=== PATIENT | female | born 1940 | race Caucasian/White ===

== ENCOUNTER → 2016-10-21 | Outpatient (CLI) | payer OTHER ==
[~2016-10-21] MED LIST: ATOR10TA88 PO; CLB/200 PO; CMD5 PO; DOMPERIDONE PO; FSMD/70 PO; GABA-112 PO; GABA1CAP5 PO; LVNIS80 SQ; MULT-190 PO; TRAM-10 PO; WARF5TAB7 PO
--- NOTE | 2016-10-21 16:38 | MAMMOGRAPHY REPORT ---
BILATERAL DIGITAL SCREENING MAMMOGRAM WITH CAD: 10/21/2016 CLINICAL HISTORY: Routine screening. Patient has no complaints. TECHNIQUE: Bilateral CC, MLO, left XCCM, repeat right MLO and right XCCL views were obtained. Curre nt study was also evaluated with a Computer Aided Detection (CAD) system. COMPARISON: Comparison is made to exams dated: 08/13/2015 mammogram, 08/10/2013 mammogram, 08/09/2012 mammogram, 08/05/2010 mammogram, 08/01/2009 mammogram, and 08/11/2014 mammogram - [facility]. BREAST COMPOSITION: There are scattered areas of fibroglandular density in both breasts. FINDINGS: There are moderate benign vascular calcifications in both breasts. The parenchymal patte rn is similar to prior mammograms. No new suspicious mass, architectural distortion or cluster of mi crocalcifications is seen. IMPRESSION: ACR BI-RADS CATEGORY 2: BENIGN There is no mammographic evidence of malignancy. A 1 year screening mammogram is recommended. The p atient will receive written notification of the results. Approximately 10% of breast cancers are not detected with mammography. A negative mammographic repor t should not delay biopsy if a clinically suggestive mass is present. Cindy Coronado M.D. ay/:10/21/2016 16:27:09 Science Professor: Leni VERDUZCO(Dereck)(M), [facility] letter sent: Normal 1/2 BI-RADS Code: ACR BI-RADS Category 2: Benign
== END | disposition home or self-care (01) ==
LOC: C.MAMM 13:05
PROVIDERS: ATTEND Internal Medicine
DX: Z12.31 Encounter for screening mammogram for malignant neoplasm of breast (principal)

== ENCOUNTER → 2017-03-11 | Day surgery (SDC) | payer OTHER ==
[2017-02-26 10:38] VITALS: Ht 167.6 cm; Wt 95.5 kg
[~2017-03-11] VITALS: Ht 167.6 cm; Wt 95.5 kg
[~2017-03-11] MED LIST changes: +500ML BSS 0.3ML EPI 1:1000PF IRRIG ONE; +ACETAMINOPHEN 325 MG TAB PO PRN; +AMVISC PLUS 0.8ML SYRINGE INT OCU ONE; +ATROPINE SULFATE 0.1 MG/ML 5ML SYR IV PRN; +AcetaZOLAMIDE 250 MG TAB PO SCH; +BETAXOLOL HCL 0.25% OP SUSP PER DROP CHARGE OPL SCH; +BRIMONIDINE TART 0.2% OP SOLN PER DROP CHARGE ONE; +BSS FLUSH ONE; +ENDOCOAT 0.85ML SYRINGE INT OCU ONE; +EpINEphrine INJ 1MG/ML AMP 1 MG/ML AMP ONE; -GABA-112 PO; +LACTATED RINGER'S 1000ML 500 ML IV SCH; +LIDOCAINE 4% OP SOLN DROP CHARGE ONE; +LIDOCAINE 4% OP SOLN DROP CHARGE OPL SCH; +LIDOCAINE HCL 1% MPF 2 ML VIAL ONE; -LVNIS80 SQ; +MIDAZOLAM HCL 1 MG/ML 2ML VIAL ONE; +MIX: 4ML BSS 1ML EPI 1:1000 PF INSTIL ONE; +MOXIFLOXACIN OPH SOLN PER DROP CHARGE ONE; +OCUCOAT 1 ML SOLN IO ONE; +POVIDONE-IODINE OP SOLN 30 ML BTL ONE; +PROPARACAINE 0.5% OP SOLN PER DROP CHARGE OPL SCH; +TOBRAMYCIN/DEXAMETHASONE OPH OINT PER APPLN CHARGE ONE
--- NOTE | 2017-03-11 09:35 | History & Physical Bridge - SC ---
H&P Re-Evaluation Bridge Note: I have examined the patient, reviewed the History & Physical and in the interval since the performance of the History & Physical I have noted the following changes of clinical significance: No changes noted
[2017-03-11] MEDS: PHENYLEPHRINE HCL 2.5% OP SOLN PER DROP CHARGE OPL SCH ×2 (10:45→10:50)
[2017-03-11] MEDS: TROPICAMIDE 1% OP SOLN PER DROP CHARGE OPL SCH ×2 (10:46→10:51)
[2017-03-11] MEDS: CYCLOPENTOLATE HCL 1% OP SOLN PER DROP CHARGE OPL SCH ×2 (10:47→10:52)
[2017-03-11] MEDS: MOXIFLOXACIN OPH SOLN PER DROP CHARGE OPL SCH ×2 (10:48→10:58)
--- NOTE | 2017-03-11 11:25 | Discharge Instructions-SurgCtr ---
Discharge Instructions Date of Service Mar 11, 2017. Visit Reason for Visit: Left Cataract Discharge Discharge Diagnosis / Problem: lens implant left eye Discharge Goals Goal(s): Improve function Activity Recommendations Activity Limitations: resume your previous activity Lifting Limitations: no more than 10 pounds Exercise/Sports Limitations: gradually increase as tolerated May Resume Sexual Activity: when tolerated Shower/Bathe: tomorrow Driving or Machine Use: resume 1 day after discharge Anesthesia . Post Anesthesia Instructions: If you have had General Anesthesia or IV Sedation: * Do not drive today. * Resume driving when surgeon permits. * Do not make important decisions or sign legal documents today. * Call surgeon for: 1. Temperature elevations greater than 101 degrees F. 2. Uncontrollable pain. 3. Excessive bleeding. 4. Persistent nausea and vomiting. 5. Medication intolerance (nausea, vomiting or rash). * For nausea and vomiting use only clear liquids such as: tea, soda, bouillon until nausea subsides, then gradually increase diet as tolerated. * If you have any concerns or questions, call your surgeon's office. If physician is unavailable and it is an emergency, call 911 or go to the nearest emergency room. . Instructions / Follow-Up Instructions / Follow-Up ACTIVITY RECOMMENDATIONS: * Light activities. * Mild irritation and blurred vision are common for the first few days. * You may walk outside, read, watch television. * Redness around the white part of the eye is common. MEDICATIONS: Resume previous medications unless instructed otherwise by your surgeon. * Take white Diamox (Acetazolamide) tablet at 2 pm today. Start all eye drops at 2 pm today: * Eye drops (today and tomorrow): Prednisone - one drop in operative eye every 3 hours while awake Ofloxacin - one drop in operative eye every 3 hours while awake Ketorolac - one drop in operative eye every 3 hours while awake SPECIAL CARE INSTRUCTIONS: * Tape plastic shield over eye to sleep at night. Call your doctor at with any concerns or problems. FOLLOW UP VISIT: Follow-up with Dr Cerda at [place] office as scheduled. Diet Recommendations Home Diet: no limitations Procedures Procedures Performed: cataract extraction with lens implant Pending Studies Studies pending at discharge: no Medical Emergencies . Who to Call and When: Medical Emergencies: If at any time you feel your situation is an emergency, please call 911 immediately. . Non-Emergent Contact Non-Emergency issues call your: Service Associate Call Non-Emergent contact if: your pain is not controlled [phone] . . "Provider Documentation" section prepared by Getachew Cerda. .
--- NOTE | 2017-03-11 11:26 | [facility] Operative Report ---
Operative Report Date of Service Mar 11, 2017. Operative Report 1. PREOPERATIVE DIAGNOSIS: Senile nuclear cataract, left eye. 2. POSTOPERATIVE DIAGNOSIS: Senile nuclear cataract, left eye. 3. PROCEDURE: Phacoemulsification of left cataract with posterior chamber lens implant, type Bausch [employer] Lomb, model MI60L, power +1.00 diopters. ANESTHESIA: Local standby. SURGEON: Dr. Cerda. COMPLICATIONS: None. OPERATING TIME: 10 minutes. 4. OPERATION AND FINDINGS: DESCRIPTION OF PROCEDURE: The left pupil was dilated. The anesthetic was administered using a topical technique. The left eye was prepped and draped. A speculum was placed. A clear corneal incision was formed. The chamber was filled with Amvisc Plus and Endocoat. A paracentesis was placed. A capsulorrhexis was performed. The nucleus was hydrodissected. The lens was removed with phacoemulsification. Time was 2.50 seconds. The aspiration unit was used to remove the cortex. The capsule was filled with Amvisc Plus. The lens implant was folded and placed into the capsule. The incision was hydrated. The Amvisc was aspirated. The wound was secure. The chamber was deep. The pupil was round. Brimonidine, TobraDex ointment and Vigamox solution were placed. The speculum was removed. The patient was returned to the Recovery Room in stable condition. I attest to the content of the Intraoperative Record and any orders documented therein. Any exceptions are noted below. The scribe's documentation has been prepared in my presence, under my direction and personally reviewed by me in its entirety. I confirm that the note above accurately reflects all work, treatment, procedures, and medical decision making performed by me. I personally scribed for Getachew Cerda M.D. ([email or web address]) on 03/11/17 at 11:26. Electronically submitted by Ibeth Millard ([email or web address]).
[2017-03-11 11:27] VITALS: TEMP 36.3
[2017-03-11 11:46] VITALS: BP 165/67; PULSE 65; O2SAT 98
--- NOTE | 2017-03-11 11:48 | Anesthesia Progress Nt - [facility] ---
Anesthesia Post Op Note Date & Time Mar 11, 2017 at 11:48 Vital Signs Pain Intensity: 2.0 Vital Signs Past 12 Hours Date Time Temp Pulse Resp B/P (MAP) Pulse Ox O2 Delivery O2 Flow Rate FiO2 03/11/17 11:46 65 16 165/67 (99) 98 Room Air 03/11/17 11:27 36.3 66 16 153/63 (93) 96 Room Air 03/11/17 10:32 36.8 67 20 173/88 (116) 98 Room Air Notes Mental Status: alert / awake / arousable, participated in evaluation Pt Amnestic to Procedure: Yes Nausea / Vomiting: adequately controlled Pain: adequately controlled Airway Patency, RR, SpO2: stable & adequate BP & HR: stable & adequate Hydration State: stable & adequate Anesthetic Complications: no major complications apparent
== END | disposition home or self-care (01) ==
LOC: X.SURG 09:18
PROVIDERS: ATTEND Specialist
DX: H25.12 Age-related nuclear cataract, left eye (principal); Z86.718 Personal history of other venous thrombosis and embolism; Z86.711 Personal history of pulmonary embolism; Z79.01 Long term (current) use of anticoagulants

== ENCOUNTER → 2017-04-01 | Day surgery (SDC) | payer OTHER ==
[2017-03-19 09:03] VITALS: Ht 167.6 cm; Wt 95.5 kg
[~2017-04-01] VITALS: Ht 167.6 cm; Wt 95.5 kg
[~2017-04-01] MED LIST changes: -BETAXOLOL HCL 0.25% OP SUSP PER DROP CHARGE OPL SCH; +BETAXOLOL HCL 0.25% OP SUSP PER DROP CHARGE OPR SCH; -CMD5 PO; +EpHEDrine SULFATE INJ 50 MG/ML AMP IV PRN; -LIDOCAINE 4% OP SOLN DROP CHARGE OPL SCH; +LIDOCAINE 4% OP SOLN DROP CHARGE OPR SCH; -PROPARACAINE 0.5% OP SOLN PER DROP CHARGE OPL SCH; +PROPARACAINE 0.5% OP SOLN PER DROP CHARGE OPR SCH
[2017-04-01] MEDS: PHENYLEPHRINE HCL 2.5% OP SOLN PER DROP CHARGE OPR SCH ×2 (07:41→07:46)
[2017-04-01] MEDS: TROPICAMIDE 1% OP SOLN PER DROP CHARGE OPR SCH ×2 (07:42→07:47)
[2017-04-01] MEDS: CYCLOPENTOLATE HCL 1% OP SOLN PER DROP CHARGE OPR SCH ×2 (07:43→07:48)
[2017-04-01] MEDS: MOXIFLOXACIN OPH SOLN PER DROP CHARGE OPR SCH ×2 (07:44→07:52)
--- NOTE | 2017-04-01 08:16 | Discharge Instructions-SurgCtr ---
Discharge Instructions Date of Service Apr 01, 2017. Visit Reason for Visit: Cataract Right Eye Discharge Discharge Diagnosis / Problem: lens implant right eye Discharge Goals Goal(s): Improve function Activity Recommendations Activity Limitations: resume your previous activity Lifting Limitations: no more than 10 pounds Exercise/Sports Limitations: gradually increase as tolerated May Resume Sexual Activity: when tolerated Shower/Bathe: tomorrow Driving or Machine Use: resume 1 day after discharge Anesthesia . Post Anesthesia Instructions: If you have had General Anesthesia or IV Sedation: * Do not drive today. * Resume driving when surgeon permits. * Do not make important decisions or sign legal documents today. * Call surgeon for: 1. Temperature elevations greater than 101 degrees F. 2. Uncontrollable pain. 3. Excessive bleeding. 4. Persistent nausea and vomiting. 5. Medication intolerance (nausea, vomiting or rash). * For nausea and vomiting use only clear liquids such as: tea, soda, bouillon until nausea subsides, then gradually increase diet as tolerated. * If you have any concerns or questions, call your surgeon's office. If physician is unavailable and it is an emergency, call 911 or go to the nearest emergency room. . Instructions / Follow-Up Instructions / Follow-Up ACTIVITY RECOMMENDATIONS: * Light activities. * Mild irritation and blurred vision are common for the first few days. * You may walk outside, read, watch television. * Redness around the white part of the eye is common. MEDICATIONS: Resume previous medications unless instructed otherwise by your surgeon. * Take white Diamox (Acetazolamide) tablet at 1 pm today. Start all eye drops at 1 pm today: * Eye drops (today and tomorrow): Prednisone - one drop in operative eye every 3 hours while awake Ofloxacin - one drop in operative eye every 3 hours while awake SPECIAL CARE INSTRUCTIONS: * Tape plastic shield over eye to sleep at night. Call your doctor at with any concerns or problems. FOLLOW UP VISIT: Follow-up with Dr Cerda at [place] office as scheduled. Diet Recommendations Home Diet: no limitations Procedures Procedures Performed: cataract extraction with lens implant Pending Studies Studies pending at discharge: no Medical Emergencies . Who to Call and When: Medical Emergencies: If at any time you feel your situation is an emergency, please call 911 immediately. . Non-Emergent Contact Non-Emergency issues call your: Pulmonary Care Nurse Call Non-Emergent contact if: your pain is not controlled [phone] . . "Provider Documentation" section prepared by Getachew Cerda. .
--- NOTE | 2017-04-01 08:17 | [facility] Operative Report ---
Operative Report Date of Service Apr 01, 2017. Operative Report 1. PREOPERATIVE DIAGNOSIS: Senile nuclear cataract, right eye. 2. POSTOPERATIVE DIAGNOSIS: Senile nuclear cataract, right eye. 3. PROCEDURE: Phacoemulsification of right cataract with posterior chamber lens implant, type Bausch [employer] Lomb, model MI60L, power +2.0 diopters. ANESTHESIA: Local standby. SURGEON: Dr. Cerda. COMPLICATIONS: None. OPERATING TIME: 10 minutes. 4. OPERATION AND FINDINGS: DESCRIPTION OF PROCEDURE: The right pupil was dilated. The anesthetic was administered using a topical technique. The right eye was prepped and draped. A speculum was placed. A clear corneal incision was formed. The chamber was filled with Amvisc Plus and Endocoat. Epinephrine solution was used. A paracentesis was placed. A capsulorrhexis was performed. The nucleus was hydrodissected. The lens was removed with phacoemulsification. Time was 5.38 seconds. The aspiration unit was used to remove the cortex. The capsule was filled with Amvisc Plus. The lens implant was folded and placed into the capsule. The incision was hydrated. The Amvisc was aspirated. The wound was secure. The chamber was deep. The pupil was round. Brimonidine, TobraDex ointment and Vigamox solution were placed. The speculum was removed. The patient was returned to the Recovery Room in stable condition. I attest to the content of the Intraoperative Record and any orders documented therein. Any exceptions are noted below. The scribe's documentation has been prepared in my presence, under my direction and personally reviewed by me in its entirety. I confirm that the note above accurately reflects all work, treatment, procedures, and medical decision making performed by me. I personally scribed for Getachew Cerda M.D. ([email or web address]) on 04/01/17 at 08:17. Electronically submitted by Ibeth Millard ([email or web address]).
[2017-04-01 08:19] VITALS: TEMP 36.8
[2017-04-01 08:47] VITALS: BP 134/65; PULSE 68; O2SAT 94
--- NOTE | 2017-04-01 09:02 | Anesthesia Progress Nt - [facility] ---
Anesthesia Post Op Note Date & Time Apr 01, 2017 at 09:02 Vital Signs Pain Intensity: 4 Vital Signs Past 12 Hours Date Time Temp Pulse Resp B/P (MAP) Pulse Ox O2 Delivery O2 Flow Rate FiO2 04/01/17 08:47 68 18 134/65 (88) 94 Room Air 04/01/17 08:19 36.8 71 16 136/80 (98) 95 Room Air 04/01/17 07:35 36.5 66 16 134/79 (97) 95 Room Air Notes Mental Status: alert / awake / arousable, participated in evaluation Pt Amnestic to Procedure: Yes Nausea / Vomiting: adequately controlled Pain: adequately controlled Airway Patency, RR, SpO2: stable & adequate BP & HR: stable & adequate Hydration State: stable & adequate Anesthetic Complications: no major complications apparent
== END | disposition home or self-care (01) ==
LOC: X.SURG 06:55
PROVIDERS: ATTEND Specialist
DX: H25.11 Age-related nuclear cataract, right eye (principal); Z79.01 Long term (current) use of anticoagulants

== ENCOUNTER → 2017-06-30 | Outpatient (CLI) | payer OTHER ==
[~2017-06-30] MED LIST changes: -500ML BSS 0.3ML EPI 1:1000PF IRRIG ONE; -ACETAMINOPHEN 325 MG TAB PO PRN; -AMVISC PLUS 0.8ML SYRINGE INT OCU ONE; +ATOR10TA82 PO; -ATOR10TA88 PO; -ATROPINE SULFATE 0.1 MG/ML 5ML SYR IV PRN; -AcetaZOLAMIDE 250 MG TAB PO SCH; -BETAXOLOL HCL 0.25% OP SUSP PER DROP CHARGE OPR SCH; -BRIMONIDINE TART 0.2% OP SOLN PER DROP CHARGE ONE; -BSS FLUSH ONE; -CLB/200 PO; -ENDOCOAT 0.85ML SYRINGE INT OCU ONE; -EpHEDrine SULFATE INJ 50 MG/ML AMP IV PRN; -EpINEphrine INJ 1MG/ML AMP 1 MG/ML AMP ONE; +GABA-1220 PO; -GABA1CAP5 PO; -LACTATED RINGER'S 1000ML 500 ML IV SCH; -LIDOCAINE 4% OP SOLN DROP CHARGE ONE; -LIDOCAINE 4% OP SOLN DROP CHARGE OPR SCH; -LIDOCAINE HCL 1% MPF 2 ML VIAL ONE; -MIDAZOLAM HCL 1 MG/ML 2ML VIAL ONE; -MIX: 4ML BSS 1ML EPI 1:1000 PF INSTIL ONE; -MOXIFLOXACIN OPH SOLN PER DROP CHARGE ONE; -OCUCOAT 1 ML SOLN IO ONE; -POVIDONE-IODINE OP SOLN 30 ML BTL ONE; -PROPARACAINE 0.5% OP SOLN PER DROP CHARGE OPR SCH; +RXC5 PO; -TOBRAMYCIN/DEXAMETHASONE OPH OINT PER APPLN CHARGE ONE
[2017-06-30 16:39] LABS: INR 2.2 (0.9-1.1)
--- NOTE | 2017-07-02 12:53 | CODING QUERY NO DIAGNOSIS ---
: 1940 TREATMENT RENDERED WITHOUT A DIAGNOSIS To promote full compliance with coding requirements relating to patient care, physician participation is requested in all cases of x ray control equipment repairer uncertainty. Please assist us with providing a diagnosis/symptom for the test(s) below: A diagnosis/symptom was not documented on your Order. A valid diagnosis/symptom is required to bill all insurances. Please remember that we are unable to code a diagnosis of rule out, probable, possible, questionable, or suspected. Tests that require a diagnosis for DOS 06/30/2017: * PROTHROMBIN TIME PROFILE DIAGNOSIS: Provider Signature: Date: Thank you Marjorie Clark [employer] Once completed, please kindly fax back to [phone] For questions please call [phone]
--- NOTE | 2017-07-16 08:01 | CODING QUERY NO DIAGNOSIS ---
TREATMENT RENDERED WITHOUT A DIAGNOSIS To promote full compliance with coding requirements relating to patient care, physician participation is requested in all cases of psychologist experimental uncertainty. Please assist us with providing a copy of the original, signed physician order for the following: DOS: 06/30/17 PROTHROMBIN TIME PROFILE Thank you Marjorie Clark [facility] Information Management Once completed, please kindly fax back to [phone] For questions please call [phone]
== END | disposition home or self-care (01) ==
LOC: C.LABSPEC 16:26
PROVIDERS: ATTEND Internal Medicine
DX: I82.409 Acute embolism and thrombosis of unspecified deep veins of unspecified lower extremity (principal)

== ENCOUNTER → 2017-11-27 | Outpatient (CLI) | payer OTHER ==
--- NOTE | 2017-11-30 14:34 | MAMMOGRAPHY REPORT ---
BILATERAL DIGITAL SCREENING MAMMOGRAM TOMOSYNTHESIS WITH CAD: 11/27/2017 CLINICAL HISTORY: Routine screening. Patient has no complaints. TECHNIQUE: Breast tomosynthesis in addition to standard 2D mammography was performed. Current study was also evaluated with a Computer Aided Detection (CAD) system. COMPARISON: Comparison is made to exams dated: 10/21/2016 mammogram, 08/13/2015 mammogram, 08/11/2014 m ammogram, 08/10/2013 mammogram, 08/09/2012 mammogram, and 08/06/2011 mammogram - [facility]. BREAST COMPOSITION: There are scattered areas of fibroglandular density in both breasts. FINDINGS: No suspicious masses, calcifications, or areas of architectural distortion are noted in ei ther breast. There has been no significant interval change compared to prior exams. Benign vascular calcifications are again noted bilaterally. IMPRESSION: ACR BI-RADS CATEGORY 2: BENIGN There is no mammographic evidence of malignancy. A 1 year screening mammogram is recommended. The pa tient will receive written notification of the results. Approximately 10% of breast cancers are not detected with mammography. A negative mammographic report should not delay biopsy if a clinically suggestive mass is present. Courtney Alston M.D. /:11/27/2017 14:43:16 Office Clin Asst: Summer VERDUZCO(Dereck)(Jed)(NISHA), [facility] letter sent: Normal 1/2 BI-RADS Code: ACR BI-RADS Category 2: Benign
== END | disposition home or self-care (01) ==
LOC: C.MAMM 13:39
PROVIDERS: ATTEND Internal Medicine
DX: Z12.31 Encounter for screening mammogram for malignant neoplasm of breast (principal)

== ENCOUNTER 2023-01-06 13:51 | Inpatient (IN) ==
--- NOTE | 2023-01-06 14:10 | Emergency Department Note ---
Impression & Plan Generalized weakness, Acute alteration in mental status, Compression fx, lumbar spine, Compression fx, thoracic spine, Urinary tract infection ED Provider Note NAME: TIMI CHAVIS AGE: 82 SEX: F : 1940 ARRIVES VIA: Ambulance INFORMANT: Patient, EMS, [facility] documentation, the patient's significant other ED PROVIDER(S): Getachew Sheriff DO CHIEF COMPLAINT: Altered mental status HPI: The patient is an 82-year-old female who presented to the emergency department by ambulance for an evaluation of altered mental status. The patient had been visited by her significant other today. She was found to still be in bed. The patient was visited by her significant other who thought this was not like her. There is no history of trauma. The patient appeared to be more confused than usual. There is no reported fever. There is no reported vomiting. The patient was not evaluated by the provider at the facility prior to coming to the emergency department. The patient apparently has a history of urinary tract infection in the past. Reportedly the patient has been compliant with the outpatient medications which include a blood thinner. ROS: See above HPI for pertinent positives & negatives. A total of 10 systems reviewed and were otherwise negative. PAST MEDICAL HISTORY: See Below PAST SURGICAL HISTORY: See Below FAMILY HISTORY: See Below SOCIAL HISTORY: See Below HOME MEDICATIONS: See Below ALLERGIES: See Below VITALS: See Below PHYSICAL EXAMINATION: GENERAL: The patient is awake to verbal commands. She answers slowly and appears to be confused. EYES: The conjunctivae are clear. The pupils are round and reactive. EARS, NOSE, MOUTH AND THROAT: The nose is without any evidence of any deformity. Mucous membranes are dry. NECK: The neck is nontender and supple. RESPIRATORY: Normal respiratory effort is noted there is no evidence of wheezing rhonchi or rales CARDIOVASCULAR: Regular rate and rhythm noted there no murmurs rubs or gallops normal S1 normal S2. GASTROINTESTINAL: The abdomen is distended. There is no tenderness guarding rigidity. MUSCULOSKELETAL/EXTREMITIES: There is no evidence of gross deformity full range of motion is noted in the hips and shoulders. SKIN: Skin is warm and dry. Pedal edema was noted bilaterally NEUROLOGIC: Patient is awake to verbal commands. She has symmetric strength but is diminished. She appears to be oriented to person and recognizes her spouse otherwise she is not oriented to place or time. MEDICAL DECISION MAKING: The patient is an 82-year-old female who presented to the emergency department for an evaluation of altered mental status. She presented with her significant other. The patient has a history of similar concerns in the past. She has had some falls recently. She was treated with IV fluids as well as IV antibiotics for presumed urinary tract infection noted on urinalysis. I discussed patient's laboratory and radiographic studies with her and her significant other. I discussed her condition with the on-call [facility] group. They have agreed to evaluate the patient in the emergency department for further management and disposition. Triage Nursing notes reviewed. Prior medical records reviewed Vital Signs: reviewed and remarkable for elevated blood pressure. Differential diagnosis: Infection, hypoglycemia, electrolyte abnormalities, overdose, toxicologic, cardiac sources, intracerebral event, neurologic, trauma, as well as other pathologies. ER treatment provided: See below Diagnostics interpreted by me: ECG: EKG was obtained in the emergency department. My interpretation is sinus rhythm at 68 bpm. First-degree AV block was noted. Poor R wave progression was noted. There is no acute ST segment elevations noted. This was compared to a tracing from March 30, 2022. No changes were noted. Cardiac Monitoring: An order was placed for continuous cardiac monitoring. The monitor shows a rate of 74 bpm with sinus rhythm. Laboratory studies: As stated above and show below. Imaging studies: See below. Radiographic imaging was reviewed by myself Consultation(s): I discussed this case with Aixa who is on-call for the [facility]. Past Med/Surg History Medical History (Updated 01/06/23 @ 16:36 by Getachew Sheriff DO) DVT (deep venous thrombosis) Gastroparesis HLD (hyperlipidemia) Left knee pain Lumbar facet joint syndrome Macular degeneration Osteoarthritis Osteoporosis Peripheral neuropathy Pulmonary embolism Right knee pain Surgical History H/O sinus surgery History of appendectomy History of cataract surgery S/P lumbar fusion Social History Smoking Status: Never smoker Hx Alcohol Use: Yes Alcohol type: wine Hx Substance Use: No marital status: Current Living Situation: Spouse current occupational status: retired Feels Safe at Home: Yes Allergies Allergies Allergy/AdvReac Type Severity Reaction Status Date / Time Penicillins Allergy Intermediate hives Verified 01/06/23 16:21 pollen extracts Allergy Intermediate sinus Verified 01/06/23 16:21 issues Home Meds Home Medications Medication Instructions Recorded Confirmed atorvastatin 10 mg tablet (Lipitor) 10 mg PO HS 03/11/19 01/06/23 acetaminophen 325 mg tablet 975 mg PO TID 3 GRAMS/24 HOURS 03/30/22 01/06/23 (Tylenol) amlodipine 5 mg tablet 5 mg PO QAM 03/30/22 01/06/23 cholecalciferol (vitamin D3) 25 25 mcg PO QAM 03/30/22 01/06/23 mcg (1,000 unit) capsule (Vitamin D3) diclofenac sodium 1 % topical gel 4 g topical Q6 PRN LEFT HIP PAIN 03/30/22 01/06/23 escitalopram oxalate 20 mg tablet 20 mg PO QAM 03/30/22 01/06/23 gabapentin 300 mg capsule 300 mg PO TID 03/30/22 01/06/23 alendronate 70 mg tablet (Fosamax) 70 mg PO WK 01/06/23 01/06/23 carboxymethylcellulose sodium 0.5 1 drp ophthalmic (eye) .EVERY 24 01/06/23 01/06/23 % eye drops (Refresh Tears) HOURS PRN Dry Eyes diclofenac sodium 1 % topical gel 4 g topical Q6 PRN spine pain 01/06/23 01/06/23 vit C 250 mg-vit E 90 mg-zinc 40 1 tab PO AMHS 01/06/23 01/06/23 mg-copper 1 [id number] capsule (PreserVision AREDS-2) warfarin 2.5 mg tablet 2.5 mg PO 3XWK 01/06/23 01/06/23 warfarin 5 mg tablet 5 mg PO 2XD 01/06/23 01/06/23 Results & Data (ED) Vital Signs Vital Signs - 24 hr 01/06/23 14:00 01/06/23 14:09 01/06/23 14:13 Temperature 36.9 C Temperature Source Oral Pulse Rate 74 74 Respiratory Rate 14 Blood Pressure 148/68 H Blood Pressure Mean 94 Blood Pressure Position Lying Pulse Oximetry 96 96 Oxygen Delivery Method Nasal Cannula Nasal Cannula Oxygen Flow Rate 4 4 Sepsis Recent Fever Within 48 Hours No Sepsis New/Unexplained Change in Mental Status Yes Sepsis Action Taken by Nursing No Action Required Home Medications Current Medication List: was personally reviewed by me Laboratory Data Attestation: I reviewed the patient's lab results. 01/06/23 14:20 01/06/23 14:20 Lab Results 01/06/23 01/06/23 01/06/23 Range/Units 14:20 14:20 14:20 WBC 5.98 (4.8-10.8) K/ul RBC 3.47 L (4.20-5.40) M/uL Hgb 11.2 L (12.0-16.0) g/dl Hct 32.6 L (37.0-47.0) % MCV 93.9 (80.0-100.0) fL MCH 32.3 (25.0-34.0) pg MCHC 34.4 (32.0-36.0) g/dL RDW Std Deviation 49.5 H (36.4-46.3) fL RDW Coeff of Joselito 14.4 (11.5-14.5) % Plt Count 190 (130-400) K/uL MPV 10.2 (9.4-12.4) fL Immature Gran % (Auto) 0.3 % Neut % (Auto) 66.4 % Lymph % (Auto) 20.1 % Morris % (Auto) 9.0 % Eos % (Auto) 3.7 % Baso % (Auto) 0.5 % Neut # (Auto) 3.97 (1.40-6.50) K/uL Lymph # (Auto) 1.20 (1.2-3.4) K/uL Morris # (Auto) 0.54 (0.11-0.59) K/uL Eos # (Auto) 0.22 (0-0.50) K/uL Baso # (Auto) 0.03 (0-0.2) K/uL Immature Gran # (Auto) 0.02 (0.01-0.20) K/uL PT 13.5 H (9.0-12.0) Seconds INR 1.2 H (0.9-1.1) APTT 28.5 (21.0-31.0) Seconds PTT Ratio 1.0 Sodium 140 (136-145) mmol/L Potassium 3.9 (3.5-5.1) mmol/L Chloride 110 H (98-107) mmol/L Carbon Dioxide 24 (21-32) mmol/L Anion Gap 6 (3-11) BUN 12 (6-23) mg/dl Creatinine 0.49 L (0.6-1.2) mg/dl Est Cr Clr Drug Dosing 104.4 ml/min Est GFR ( Amer) 104.4 ml/min Est GFR (Non-Af Amer) 90.1 ml/min BUN/Creatinine Ratio 24.5 H (10-20) Glucose 120 H (70-99(Fasting)) mg/dl Calcium 8.6 (8.6-10.3) mg/dl Magnesium 1.9 (1.7-2.4) mg/dl Total Bilirubin 0.6 (0.2-1.0) mg/dl AST 16 (13-39) U/L ALT 10 (7-52) U/L Alkaline Phosphatase 83 (34-104) U/L Total Creatine Kinase 172 (26-192) U/L Troponin I High Sens 5.9 (0-14) pg/ml Total Protein 6.4 (6.0-8.3) gm/dl Albumin 3.5 (3.4-5.0) gm/dl Globulin 2.9 (2.5-4.0) gm/dl Albumin/Globulin Ratio 1.2 (0.9-2) TSH (0.300-4.500) uIu/ml Urine Color Urine Appearance (Clear) Urine pH (4.5-7.5) Ur Specific Equality (1.000-1.030) Urine Protein (Negative) Urine Glucose (UA) (Negative) Urine Ketones (Negative) Urine Blood (Negative) Urine Nitrite (Negative) Urine Bilirubin (Negative) Urine Urobilinogen (Negative) Ur Leukocyte Esterase (Negative) Urine WBC (Auto) (0-5) /hpf Urine RBC (Auto) (0-4) /hpf U Hyaline Cast (Auto) (0-5) /lpf U Epithel Cells (Auto) (0-5) /lpf Urine Bacteria (Auto) (Negative) Urine Yeast SARS-CoV-2, RNA, NAAT (NEGATIVE) 01/06/23 01/06/23 01/06/23 Range/Units 14:20 14:30 15:40 WBC (4.8-10.8) K/ul RBC (4.20-5.40) M/uL Hgb (12.0-16.0) g/dl Hct (37.0-47.0) % MCV (80.0-100.0) fL MCH (25.0-34.0) pg MCHC (32.0-36.0) g/dL RDW Std Deviation (36.4-46.3) fL RDW Coeff of Joselito (11.5-14.5) % Plt Count (130-400) K/uL MPV (9.4-12.4) fL Immature Gran % (Auto) % Neut % (Auto) % Lymph % (Auto) % Morris % (Auto) % Eos % (Auto) % Baso % (Auto) % Neut # (Auto) (1.40-6.50) K/uL Lymph # (Auto) (1.2-3.4) K/uL Morris # (Auto) (0.11-0.59) K/uL Eos # (Auto) (0-0.50) K/uL Baso # (Auto) (0-0.2) K/uL Immature Gran # (Auto) (0.01-0.20) K/uL PT (9.0-12.0) Seconds INR (0.9-1.1) APTT (21.0-31.0) Seconds PTT Ratio Sodium (136-145) mmol/L Potassium (3.5-5.1) mmol/L Chloride (98-107) mmol/L Carbon Dioxide (21-32) mmol/L Anion Gap (3-11) BUN (6-23) mg/dl Creatinine (0.6-1.2) mg/dl Est Cr Clr Drug Dosing ml/min Est GFR ( Amer) ml/min Est GFR (Non-Af Amer) ml/min BUN/Creatinine Ratio (10-20) Glucose (70-99(Fasting)) mg/dl Calcium (8.6-10.3) mg/dl Magnesium (1.7-2.4) mg/dl Total Bilirubin (0.2-1.0) mg/dl AST (13-39) U/L ALT (7-52) U/L Alkaline Phosphatase (34-104) U/L Total Creatine Kinase (26-192) U/L Troponin I High Sens (0-14) pg/ml Total Protein (6.0-8.3) gm/dl Albumin (3.4-5.0) gm/dl Globulin (2.5-4.0) gm/dl Albumin/Globulin Ratio (0.9-2) TSH 1.927 (0.300-4.500) uIu/ml Urine Color Yellow Urine Appearance Cloudy A (Clear) Urine pH 6.5 (4.5-7.5) Ur Specific Equality 1.018 (1.000-1.030) Urine Protein Negative (Negative) Urine Glucose (UA) Negative (Negative) Urine Ketones Trace H (Negative) Urine Blood Negative (Negative) Urine Nitrite Positive A (Negative) Urine Bilirubin Negative (Negative) Urine Urobilinogen Negative (Negative) Ur Leukocyte Esterase 2+ H (Negative) Urine WBC (Auto) 1-5 (0-5) /hpf Urine RBC (Auto) 0-4 (0-4) /hpf U Hyaline Cast (Auto) 1-5 (0-5) /lpf U Epithel Cells (Auto) 20-30 H (0-5) /lpf Urine Bacteria (Auto) 4+ H (Negative) Urine Yeast Not Reportable SARS-CoV-2, RNA, NAAT NEGATIVE (NEGATIVE) Administered Medications Discontinued Medications Sodium Chloride (Nss) 500 mls @ 999 mls/hr IV .Q31M ARASELI Stop: 01/06/23 14:45 Last Infusion: 01/06/23 15:45 Dose: 0 mls/hr Documented By: Admin: 01/06/23 15:09 Dose: 999 mls/hr Documented By: REINA Imaging Data Attestation: I personally reviewed and interpreted this imaging study as follows: My Impression: CT of the head was obtained in the emergency department. My interpretation is no intracranial hemorrhage or mass, final report below. 1 view chest x-ray was obtained in the emergency department. My interpretation is no free air or definite infiltrate, final report below. Radiologist's Impression: Abdomen/Pelvis CT 01/06/23 14:03 CT OF THE ABDOMEN AND PELVIS WITHOUT CONTRAST CLINICAL HISTORY: Fall. Abdominal distention. COMPARISON STUDY: Pelvis radiograph March 11, 2019. TECHNIQUE: Axial images of the abdomen and pelvis were obtained without IV contrast. Images were reviewed in the axial, sagittal, and coronal planes. Automated exposure control was utilized for the study. A dose lowering technique was utilized adhering to the principles of ALARA. FINDINGS: Subpleural opacities within the lower lungs favor atelectasis. No hemoperitoneum or pneumoperitoneum is present. There is a small hiatal hernia. Evaluation of the solid abdominal viscera is suboptimal on this unenhanced exam but there is no evidence for traumatic injury to the liver, spleen, adrenal glands, kidneys or pancreas. A water attenuation 8.4 cm left renal lesion favors a cyst. Low-attenuation lesion within the lower pole of the right kidney also favors a cyst. There is a 5 mm calcification within the inferior left renal sinus. There are no ureteral calculi. There are hypodense foci within the renal sinuses. These probably reflect parapelvic cysts within correlating with MRI of the lumbar spine of May 08, 2015. There is no evidence for a bowel obstruction. Colonic diverticulosis is present. No evidence for acute diverticulitis. No acute proximal femoral fracture is noted. Note is made of an acute nondisplaced fracture through the left inferior aspect of the L5 vertebral body shown on axial image 238 of 389. This is new since the lumbar spine CT March 30, 2022. This extends to adjacent osteophytes. Postoperative findings within the lumbar spine are present. No additional acute fractures are present. A moderate T8 compression fracture is likely subacute to chronic. Mild T9 and T10 compression fractures appear chronic. Mild stranding within the right buttock is noted. Cholelithiasis. No evidence for acute cholecystitis. IMPRESSION: 1. No hemoperitoneum or pneumoperitoneum. No evidence for traumatic injury to the solid abdominal viscera on unenhanced exam. 2. Acute nondisplaced fracture through the left inferior aspect of the L5 vertebral body. No additional acute fractures. 3. Moderate T8 compression fracture, likely subacute. Chronic T9 and T10 compression fractures. 4. Suspected small right buttock contusion. 5. Cholelithiasis. No evidence for acute cholecystitis. 6. Colonic diverticulosis. No evidence for acute diverticulitis. ACT 112: Negative or not required by law. Electronically signed by: Aba Oliveira M.D. 01/06/2023 3:[address] 01/06/23 14:03 CT cervical spine wo con CLINICAL HISTORY: fall TECHNIQUE: Multidetector row helical CT of the cervical spine was performed without administration of intravenous contrast. Coronal and sagittal reformati ons were obtained. Automated dose lowering techniques and/or adjustment according to patient size were utilized for this exam. Comparison: Comparison is made to CT cervical spine 03/30/2022 FINDINGS: No acute fractures or subluxations are identified. Degenerative changes are seen in the visualized spine. The alignment is normal. Biapical scarring is seen. IMPRESSION: Degenerative changes without evidence of acute bony injury. ACT 112: Negative or not required by law. Electronically signed by: Josesito Sierra M.D. 01/06/2023 3:07 PM Chest X-Ray 01/06/23 14:03 XR chest 1V portable CLINICAL HISTORY: weakness TECHNIQUE: Single frontal radiograph of the chest was obtained. Comparison: Comparison is made to chest radiograph 03/11/2019 FINDINGS: No lines and tubes are seen. The cardiomediastinal silhouette is stable. The lungs are clear. No evidence of pleural effusion or pneumothorax. IMPRESSION: No acute chest disease. ACT 112: Negative or not required by law. Electronically signed by: Josesito Sierra M.D. 01/06/2023 3:[address] 01/06/23 14:03 CT head/brain wo con CLINICAL HISTORY: 82 years-old Female with ams. Acute head injury status post fall TECHNIQUE: Multiple axial CT images of the head were obtained without contrast. A dose lowering technique was utilized adhering to the principles of ALARA. CT DOSE: 2579.11 mGy.cm COMPARISON: 03/30/2022. FINDINGS: No acute intracranial hemorrhage, midline shift, intracranial mass, acute territorial ischemia or abnormal extra-axial collection. Involutional changes with chronic microvascular ischemic disease. Unchanged ventriculomegaly. The calvarium is intact. Mastoid air cells are clear. Severe near complete opacification of the left sphenoid sinus. Prior partial ethmoidectomy. Elongation of the bilateral globes. Prior bilateral lens repair. IMPRESSION: 1. No acute intracranial abnormality. 2. Unchanged ventricular dilation which may be an ex vacuo basis. Normal pressure hydrocephalus could appear similarly. ACT 112: Negative or not required by law. The above report was generated using voice recognition software. It may contain grammatical, syntax or spelling errors. Electronically signed by: Maxim Sales M.D. 01/06/2023 2:59 PM Discharge Plan Visit Data Chief Complaint: Altered Mental Status ED Provider: Getachew Sheriff Discharge Problem: Generalized weakness, Acute alteration in mental status, Compression fx, lumbar spine, Compression fx, thoracic spine, Urinary tract infection Patient Disposition: Being Evaluated by Hospitalist Forms Stand Alone Forms: [facility] Prescriptions Prescriptions: No Action atorvastatin [Lipitor] 10 mg tablet 10 mg PO HS warfarin 2.5 mg tablet 2.5 mg PO 3XWK Rx Instructions: give 2.5 mg in the evening every thursday,thursday and thursday warfarin 5 mg tablet 5 mg PO 2XD Rx Instructions: give 5 mg at bedtime every thursday and diclofenac sodium 1 % gel 4 g TOPICAL Q6 PRN (Reason: spine pain) alendronate [Fosamax] 70 mg Tablet 70 mg PO WK Rx Instructions: give every thursday PreserVision AREDS-2 250-90-40-1 mg Capsule 1 tab PO AMHS carboxymethylcellulose sodium [Refresh Tears] 0.5 % Drops 1 drp OPHTHALMIC (EYE) .EVERY 24 HOURS PRN (Reason: Dry Eyes) acetaminophen [Tylenol] 325 mg Tablet 975 mg PO TID Rx Instructions: 3 tablet dose amlodipine 5 mg tablet 5 mg PO QAM gabapentin 300 mg capsule 300 mg PO TID cholecalciferol (vitamin D3) [Vitamin D3] 25 mcg (1,000 unit) Capsule 25 mcg PO QAM escitalopram oxalate 20 mg tablet 20 mg PO QAM diclofenac sodium [Voltaren] 1 % Gel 4 g TOPICAL Q6 PRN (Reason: LEFT HIP PAIN) Rx Instructions: fore bilateral hips Referrals Referrals: Amy Barreto Sonoita [Primary Care Provider] -
[2023-01-06] MEDS ORDERED: SODIUM CHLORIDE 0.9% 500 ML IV SCH (14:15)
[2023-01-06 14:40] LABS: Basophils # (auto) 0.03 K/uL (0-0.2); Basophils % (auto) 0.5 %; Eosinophils # (auto) 0.22 K/uL (0-0.50); Eosinophils % (auto) 3.7 %; Hematocrit (blood only) 32.6 % (37.0-47.0); Hemoglobin 11.2 g/dl (12.0-16.0); Immature Granulocytes # (auto) 0.02 K/uL (0.01-0.20); Immature Granulocytes % (auto) 0.3 %; Lymphocytes % (auto) 20.1 %; Mean Corpuscular Hemoglobin 32.3 pg (25.0-34.0); Mean Corpuscular Hgb Conc 34.4 g/dL (32.0-36.0); Mean Corpuscular Volume 93.9 fL (80.0-100.0); Mean Platelet Volume 10.2 fL (9.4-12.4); Monocytes # (auto) 0.54 K/uL (0.11-0.59); Neutrophils # (auto) 3.97 K/uL (1.40-6.50); Neutrophils % (auto) 66.4 %; Platelet Count 190 K/uL (130-400); RDW Coefficient of Variation 14.4 % (11.5-14.5); RDW Standard Deviation 49.5 fL (36.4-46.3); Red Blood Count 3.47 M/uL (4.20-5.40); White Blood Count 5.98 K/ul (4.8-10.8)
[2023-01-06 14:55] LABS: Albumin Globulin Ratio 1.2 (0.9-2); Albumin Level 3.5 gm/dl (3.4-5.0); BUN Creatinine Ratio 24.5 (10-20); Bilirubin,Total 0.6 mg/dl (0.2-1.0); Calcium 8.6 mg/dl (8.6-10.3); Creatinine Clr Calc Pharmacy 104.4 ml/min; Est GFR (African American) 104.4 ml/min; Est GFR (Non-African American) 90.1 ml/min; Globulin 2.9 gm/dl (2.5-4.0); Magnesium 1.9 mg/dl (1.7-2.4); Potassium 3.9 mmol/L (3.5-5.1); Total Protein 6.4 gm/dl (6.0-8.3)
--- NOTE | 2023-01-06 15:00 | CT Scan Report ---
CT head/brain wo con CLINICAL HISTORY: 82 years-old Female with ams. Acute head injury status post fall TECHNIQUE: Multiple axial CT images of the head were obtained without contrast. A dose lowering tech nique was utilized adhering to the principles of ALARA. CT DOSE: 2579.11 mGy.cm COMPARISON: 03/30/2022. FINDINGS: No acute intracranial hemorrhage, midline shift, intracranial mass, acute territorial ischemia or abn ormal extra-axial collection. Involutional changes with chronic microvascular ischemic disease. Uncha nged ventriculomegaly. The calvarium is intact. Mastoid air cells are clear. Severe near complete opacification of the left sphenoid sinus. Prior partial ethmoidectomy. Elongation of the bilateral globes. Prior bilateral oscar s repair. IMPRESSION: 1. No acute intracranial abnormality. 2. Unchanged ventricular dilation which may be an ex vacuo basis. Normal pressure hydrocephalus could appear similarly. ACT 112: Negative or not required by law. The above report was generated using voice recognition software. It may contain grammatical, syntax o r spelling errors. Electronically signed by: Maxim Sales M.D. 01/06/2023 2:59 PM
[2023-01-06 15:02] LABS: Troponin I High Sensitivity 5.9 pg/ml (0-14)
--- NOTE | 2023-01-06 15:04 | XRay Report ---
XR chest 1V portable CLINICAL HISTORY: weakness TECHNIQUE: Single frontal radiograph of the chest was obtained. Comparison: Comparison is made to chest radiograph 03/11/2019 FINDINGS: No lines and tubes are seen. The cardiomediastinal silhouette is stable. The lungs are clear. No evid ence of pleural effusion or pneumothorax. IMPRESSION: No acute chest disease. ACT 112: Negative or not required by law. Electronically signed by: Josesito Sierra M.D. 01/06/2023 3:03 PM
--- NOTE | 2023-01-06 15:08 | CT Scan Report ---
CT cervical spine wo con CLINICAL HISTORY: fall TECHNIQUE: Multidetector row helical CT of the cervical spine was performed without administration of intravenous contrast. Coronal and sagittal reformations were obtained. Automated dose lowering techn iques and/or adjustment according to patient size were utilized for this exam. Comparison: Comparison is made to CT cervical spine 03/30/2022 FINDINGS: No acute fractures or subluxations are identified. Degenerative changes are seen in the visualized sp ine. The alignment is normal. Biapical scarring is seen. IMPRESSION: Degenerative changes without evidence of acute bony injury. ACT 112: Negative or not required by law. Electronically signed by: Josesito Sierra M.D. 01/06/2023 3:07 PM
--- NOTE | 2023-01-06 15:12 | CT Scan Report ---
CT OF THE ABDOMEN AND PELVIS WITHOUT CONTRAST CLINICAL HISTORY: Fall. Abdominal distention. COMPARISON STUDY: Pelvis radiograph March 11, 2019. TECHNIQUE: Axial images of the abdomen and pelvis were obtained without IV contrast. Images were revi ewed in the axial, sagittal, and coronal planes. Automated exposure control was utilized for the giovanni dy. A dose lowering technique was utilized adhering to the principles of ALARA. FINDINGS: Subpleural opacities within the lower lungs favor atelectasis. No hemoperitoneum or pneumop eritoneum is present. There is a small hiatal hernia. Evaluation of the solid abdominal viscera is barreto boptimal on this unenhanced exam but there is no evidence for traumatic injury to the liver, spleen, adrenal glands, kidneys or pancreas. A water attenuation 8.4 cm left renal lesion favors a cyst. Low- attenuation lesion within the lower pole of the right kidney also favors a cyst. There is a 5 mm calc ification within the inferior left renal sinus. There are no ureteral calculi. There are hypodense fo ci within the renal sinuses. These probably reflect parapelvic cysts within correlating with MRI of t he lumbar spine of May 08, 2015. There is no evidence for a bowel obstruction. Colonic diverticul osis is present. No evidence for acute diverticulitis. No acute proximal femoral fracture is noted. N ote is made of an acute nondisplaced fracture through the left inferior aspect of the L5 vertebral tigist dy shown on axial image 238 of 389. This is new since the lumbar spine CT March 30, 2022. This ext ends to adjacent osteophytes. Postoperative findings within the lumbar spine are present. No addition al acute fractures are present. A moderate T8 compression fracture is likely subacute to chronic. Mil d T9 and T10 compression fractures appear chronic. Mild stranding within the right buttock is noted. Cholelithiasis. No evidence for acute cholecystitis. IMPRESSION: 1. No hemoperitoneum or pneumoperitoneum. No evidence for traumatic injury to the solid abdominal vis cera on unenhanced exam. 2. Acute nondisplaced fracture through the left inferior aspect of the L5 vertebral body. No addition al acute fractures. 3. Moderate T8 compression fracture, likely subacute. Chronic T9 and T10 compression fractures. 4. Suspected small right buttock contusion. 5. Cholelithiasis. No evidence for acute cholecystitis. 6. Colonic diverticulosis. No evidence for acute diverticulitis. ACT 112: Negative or not required by law. Electronically signed by: Aba Oliveira M.D. 01/06/2023 3:10 PM
[2023-01-06 15:13] LABS: INR 1.2 (0.9-1.1); Partial Thromboplastin Time 28.5 Seconds (21.0-31.0); Prothrombin Time 13.5 Seconds (9.0-12.0)
[2023-01-06 16:04] LABS: Appearance Urine Cloudy (Clear); Bacteria Urine Automated 4+ (Negative); Bilirubin Urine Negative (Negative); Blood Urine Negative (Negative); Color Urine Yellow; Epithelial Cell Urine Auto 20-30 /lpf (0-5); Glucose Urine UA Negative (Negative); Ketones Urine Trace (Negative); Leukocyte Esterase Urine 2+ (Negative); Nitrite Urine Positive (Negative); Protein Urine Negative (Negative); RBC Urine Automated 0-4 /hpf (0-4); Specific Gravity Urine 1.018 (1.000-1.030); Urobilinogen Urine Negative (Negative); pH Urine 6.5 (4.5-7.5)
--- NOTE | 2023-01-06 16:14 | History & Physical Report ---
Date of Service January 06, 2023 Assessment & Plan (1) Altered mental status: (2) Metabolic encephalopathy: Plan: Patient is 82-year-old female with PMH HTN, HLD, CKD III, history of DVT/PE, chronically anticoagulated on warfarin, history of vertebral artery dissection, history recurrent falls, history SDH secondary to fall in 03/2022 treated conservatively, h/o lumbar laminectomy, history T8 compression fracture, depression presented to ER for altered mental status Likely metabolic encephalopathy secondary to UTI CT head: No acute intracranial abnormality. Unchanged ventricular dilation which may be an ex vacuo basis. Normal pressure hydrocephalus could appear similarly. CT C-spine: No acute fractures or subluxations No significant electrolyte abnormality Treat UTI as below Hold gabapentin for now Monitor CBC, BMP in a.m. (3) Urinary tract infection: Plan: UA + nitrate, 2+ leuk esterase, 20-30 epithelial, 4+ bacteria Urine culture pending In ER given Rocephin Continue Rocephin pending culture results (4) Fall: (5) Ambulatory dysfunction: Plan: Fall reported yesterday. History recurrent falls. History ambulatory dysfunction Fall precautions PT/OT eval Reported patient has been requiring 2 person assist for standing and ambulating with walker. Has needed more care than is available at current assisted living. Will likely need to look into further placement (6) L5 vertebral fracture: Plan: CT abdomen pelvis: Acute nondisplaced fracture through the left inferior aspect of the L5 vertebral body. No additional acute fractures. Moderate T8 compression fracture, likely subacute. Chronic T9 and T10 compression fractures. Patient with chronic back pain. Is denying any increased back pain [facility] consult is unavailable currently. Will monitor. May need to consider consult for brace (7) History of compression fracture of spine: Plan: Chronic T8 compression fracture. Chronic T9 compression fracture Review CT from 03/31/2022 in epic: Acute T8 vertebral body compression fracture, chronic compression fracture at T9 Continue scheduled Tylenol, topical diclofenac as needed (8) History of dysphagia: Plan: Staff from assisted living report patient had been having noted coughing while eating meals Aspiration precautions Speech eval (9) History of pulmonary embolism: Plan: History PE, chronic DVT Chronically anticoagulated on warfarin INR: 1.2 Increased dose of warfarin to 5 mg daily, start Lovenox SQ while subtherapeutic INR Monitor INR to further dose warfarin and Lovenox (10) HTN (hypertension): Plan: Continue amlodipine (11) HLD (hyperlipidemia): Plan: Continue atorvastatin (12) Depression: Plan: Continue citalopram (13) Neuropathy: Plan: Currently holding gabapentin as patient with altered mental status DVT Prophylaxis Lovenox SQ until INR therapeutic with warfarin Full Code as per discussion with patient and patient's Follows with Gurjit Diaz PA-C for routine care Pt was seen and care coordinated with Dr Jane. See addendum I spent a total of 79 minutes reviewing notes, outpatient records, labs, medication, coordinating, documenting and providing care for this patient excluding time spent in the performance of separately billed services. History of Present Illness Chief Complaint: [facility] Primary Care Provider: [facility] Patient is 82-year-old female with PMH HTN, HLD, CKD III, history of DVT/PE, chronically anticoagulated on warfarin, history of vertebral artery dissection, history recurrent falls, history SDH secondary to fall in 03/2022 treated conservatively, h/o lumbar laminectomy, history T8 compression fracture, depression presented to ER for altered mental status. History obtained from chart review, patient's who is at bedside, limited information obtained from patient secondary to cognitive status. states patient had a fall last evening. states patient called him to tell him she fell yesterday. She denied any injury or pain after fall. Reports chronic back pain. Patient denies any increased pain. States she was doing well yesterday morning and completed PT. Patient is unable to tell me any information about that fall. Unsure if had dizziness, CP, SOB or other symptoms prior to fall. states today he was called by facility to inform him that patient was not talking and was not following commands. states he went to see her this morning and she would talk but only was saying one-word answers and seemed very fatigued. Currently patient is complaining of feeling tired and states she is having trouble remembering. She is currently oriented to person only. Is slow to answer questions. reports at baseline patient uses wheelchair and needs assistance with ambulating with walker. Reported functional decline. History of recurrent falls. Patient's states is currently living in assisted living at [facility]. States that he has been informed patient is requiring too much care for assisted living now requiring 2 person assist with standing/ambulating on regular basis and they are suggesting upgrading to skilled facility. Patient's states has been in and out of skilled facility then to assisted living multiple times over the past 2 years. Denies fever/chills. Patient is unable to tell me if she has any dysuria, or urinary frequency, hematuria. She reports chronic back pain and chronic bilateral hip pain. Reports chronic BLE edema for past 2 years since she has been in nursing facility and not moving much. Patient denies N/V/D/C, LOPEZ, dizziness, neck pain, CP, SOB, palpitations, cough, choking, abdominal pain, rashes Allergies Allergy/AdvReac Type Severity Reaction Status Date / Time Penicillins Allergy Intermediate hives Verified 01/06/23 16:21 pollen extracts Allergy Intermediate sinus Verified 01/06/23 16:21 issues Home Medications Medication Instructions Recorded Confirmed Type atorvastatin 10 mg tablet (Lipitor) 10 mg PO HS 03/11/19 01/06/23 History acetaminophen 325 mg tablet 975 mg PO TID 3 GRAMS/24 HOURS 03/30/22 01/06/23 History (Tylenol) amlodipine 5 mg tablet 5 mg PO QAM 03/30/22 01/06/23 History cholecalciferol (vitamin D3) 25 25 mcg PO QAM 03/30/22 01/06/23 History mcg (1,000 unit) capsule (Vitamin D3) diclofenac sodium 1 % topical gel 4 g topical Q6 PRN LEFT HIP PAIN 03/30/22 01/06/23 History escitalopram oxalate 20 mg tablet 20 mg PO QAM 03/30/22 01/06/23 History gabapentin 300 mg capsule 300 mg PO TID 03/30/22 01/06/23 History alendronate 70 mg tablet (Fosamax) 70 mg PO WK 01/06/23 01/06/23 History carboxymethylcellulose sodium 0.5 1 drp ophthalmic (eye) .EVERY 24 01/06/23 01/06/23 History % eye drops (Refresh Tears) HOURS PRN Dry Eyes diclofenac sodium 1 % topical gel 4 g topical Q6 PRN spine pain 01/06/23 01/06/23 History vit C 250 mg-vit E 90 mg-zinc 40 1 tab PO AMHS 01/06/23 01/06/23 History mg-copper 1 [id number] capsule (PreserVision AREDS-2) warfarin 2.5 mg tablet 2.5 mg PO UD 01/06/23 01/06/23 History warfarin 5 mg tablet 5 mg PO UD 01/06/23 01/06/23 History Past Med/Surg History Medical History (Updated 01/06/23 @ 20:45 by Sofi Lozoya PA-C) Depression DVT (deep venous thrombosis) Gastroparesis HLD (hyperlipidemia) HTN (hypertension) Left knee pain Lumbar facet joint syndrome Macular degeneration Neuropathy Osteoarthritis Osteoporosis Peripheral neuropathy Pulmonary embolism Right knee pain Surgical History H/O sinus surgery History of appendectomy History of cataract surgery S/P lumbar fusion Family History (Updated 01/06/23 @ 19:46 by Sofi Lozoya PA-C) Other Cancer Social History Smoking Status: Never smoker Second Hand Exposure: No; Hx Alcohol Use: No Hx Substance Use: No Preferred Language: [place] Leonean Communication Ability: Effective Group Home Worker Required: No Beliefs That Will Affect Care: None marital status: Current Living Situation: Personal Care Facility current occupational status: retired Feels Safe at Home: Yes Assistive Devices: Wheelchair Review of Systems Review of Systems: All systems reviewed & are unremarkable except as noted in HPI & below Physical Exam Physical Exam: General: no acute distress, obese Head: normocephalic, atraumatic Eyes: PERRL, EOM's intact, conjunctiva non-injected, anicteric ENT: normal inspection external ears, nose, mucous membranes moist Neck: supple, trachea midline Lungs: clear, no respiratory distress, no wheezing/rhonchi/rales CV: RRR, no murmur, 1+ pretibial edema Abd: +protuberant, normal BS, soft, non-tender, no CVA tenderness to palpation Back: no discolorations, non-tender to palpation lumbar spine Ext: no cyanosis, no calf tenderness Neuro: Alert, oriented to person only. Slow to answer questions. Initially gives one word answers, intermittently will give full answers, no focal deficits noted, somewhat flat affect Skin: warm, dry Results & Data Results & Data Vital Signs (Past 12 Hours) Vital Signs Temp Pulse Resp BP Pulse Ox O2 Del Method O2 Flow Rate 01/06/23 14:13 74 01/06/23 14:09 96 Nasal Cannula 4 01/06/23 14:00 36.9 C 74 14 148/68 H 96 Nasal Cannula 4 Laboratory Results Short CBC 01/06/23 Range/Units 14:20 WBC 5.98 (4.8-10.8) K/ul Hgb 11.2 L (12.0-16.0) g/dl Hct 32.6 L (37.0-47.0) % Plt Count 190 (130-400) K/uL BMP 01/06/23 14:20 Sodium 140 Potassium 3.9 Chloride 110 H Carbon Dioxide 24 BUN 12 Creatinine 0.49 L Glucose 120 H Calcium 8.6 Cardiac Enzymes 01/06/23 Range/Units 14:20 Total Creatine Kinase 172 (26-192) U/L Liver Function 01/06/23 Range/Units 14:20 Total Bilirubin 0.6 (0.2-1.0) mg/dl AST 16 (13-39) U/L ALT 10 (7-52) U/L Alkaline Phosphatase 83 (34-104) U/L Albumin 3.5 (3.4-5.0) gm/dl Urine 01/06/23 Range/Units 15:40 Urine Color Yellow Urine Appearance Cloudy A (Clear) Urine pH 6.5 (4.5-7.5) Ur Specific [place] 1.018 (1.000-1.030) Urine Protein Negative (Negative) Urine Glucose (UA) Negative (Negative) Diagnostic Findings Abdomen/Pelvis CT 01/06/23 14:03 CT OF THE ABDOMEN AND PELVIS WITHOUT CONTRAST CLINICAL HISTORY: Fall. Abdominal distention. COMPARISON STUDY: Pelvis radiograph March 11, 2019. TECHNIQUE: Axial images of the abdomen and pelvis were obtained without IV contrast. Images were reviewed in the axial, sagittal, and coronal planes. Automated exposure control was utilized for the study. A dose lowering technique was utilized adhering to the principles of ALARA. FINDINGS: Subpleural opacities within the lower lungs favor atelectasis. No hemoperitoneum or pneumoperitoneum is present. There is a small hiatal hernia. Evaluation of the solid abdominal viscera is suboptimal on this unenhanced exam but there is no evidence for traumatic injury to the liver, spleen, adrenal glands, kidneys or pancreas. A water attenuation 8.4 cm left renal lesion favors a cyst. Low-attenuation lesion within the lower pole of the right kidney also favors a cyst. There is a 5 mm calcification within the inferior left renal sinus. There are no ureteral calculi. There are hypodense foci within the renal sinuses. These probably reflect parapelvic cysts within correlating with MRI of the lumbar spine of May 08, 2015. There is no evidence for a bowel obstruction. Colonic diverticulosis is present. No evidence for acute diverticulitis. No acute proximal femoral fracture is noted. Note is made of an acute nondisplaced fracture through the left inferior aspect of the L5 vertebral body shown on axial image 238 of 389. This is new since the lumbar spine CT March 30, 2022. This extends to adjacent osteophytes. Postoperative findings within the lumbar spine are present. No additional acute fractures are present. A moderate T8 compression fracture is likely subacute to chronic. Mild T9 and T10 compression fractures appear chronic. Mild stranding within the right bu ttock is noted. Cholelithiasis. No evidence for acute cholecystitis. IMPRESSION: 1. No hemoperitoneum or pneumoperitoneum. No evidence for traumatic injury to the solid abdominal viscera on unenhanced exam. 2. Acute nondisplaced fracture through the left inferior aspect of the L5 vertebral body. No additional acute fractures. 3. Moderate T8 compression fracture, likely subacute. Chronic T9 and T10 compression fractures. 4. Suspected small right buttock contusion. 5. Cholelithiasis. No evidence for acute cholecystitis. 6. Colonic diverticulosis. No evidence for acute diverticulitis. ACT 112: Negative or not required by law. Electronically signed by: Aba Oliveira M.D. 01/06/2023 3:[address] 01/06/23 14:03 CT cervical spine wo con CLINICAL HISTORY: fall TECHNIQUE: Multidetector row helical CT of the cervical spine was performed without administration of intravenous contrast. Coronal and sagittal reformations were obtained. Automated dose lowering techniques and/or adjustment according to patient size were utilized for this exam. Comparison: Comparison is made to CT cervical spine 03/30/2022 FINDINGS: No acute fractures or subluxations are identified. Degenerative changes are seen in the visualized spine. The alignment is normal. Biapical scarring is seen. IMPRESSION: Degenerative changes without evidence of acute bony injury. ACT 112: Negative or not required by law. Electronically signed by: Josesito Sierra M.D. 01/06/2023 3:07 PM Chest X-Ray 01/06/23 14:03 XR chest 1V portable CLINICAL HISTORY: weakness TECHNIQUE: Single frontal radiograph of the chest was obtained. Comparison: Comparison is made to chest radiograph 03/11/2019 FINDINGS: No lines and tubes are seen. The cardiomediastinal silhouette is stable. The lungs are clear. No evidence of pleural effusion or pneumothorax. IMPRESSION: No acute chest disease. ACT 112: Negative or not required by law. Electronically signed by: Josesito Sierra M.D. 01/06/2023 3:[address] 01/06/23 14:03 CT head/brain wo con CLINICAL HISTORY: 82 years-old Female with ams. Acute head injury status post fall TECHNIQUE: Multiple axial CT images of the head were obtained without contrast. A dose lowering technique was utilized adhering to the principles of ALARA. CT DOSE: 2579.11 mGy.cm COMPARISON: 03/30/2022. FINDINGS: No acute intracranial hemorrhage, midline shift, intracranial mass, acute territorial ischemia or abnormal extra-axial collection. Involutional changes with chronic microvascular ischemic disease. Unchanged ventriculomegaly. The calvarium is intact. Mastoid air cells are clear. Severe near complete opacification of the left sphenoid sinus. Prior partial ethmoidectomy. Elongation of the bilateral globes. Prior bilateral lens repair. IMPRESSION: 1. No acute intracranial abnormality. 2. Unchanged ventricular dilation which may be an ex vacuo basis. Normal pressure hydrocephalus could appear similarly. ACT 112: Negative or not required by law. The above report was generated using voice recognition software. It may contain grammatical, syntax or spelling errors. Electronically signed by: Maxim Sales M.D. 01/06/2023 2:59 PM Supervising Physician Co-Signing Physician Notes I have seen and examined the patient and have discussed the case with the provider above. I agree with the assessment and plan as stated with the following exceptions. 82-year-old female who is oriented to person and place only presented after a fall with residual weakness. She is a poor historian and most of the history is gathered from records and her who is at bedside. She has a history of recurrent falls. Patient reports that her concern is [facility] feels they cannot adequately care for her. Her helped her to articulate this. Outside of this there is no other clear concerns today. She denies any weakness or dizziness. She denies any pain. She does have some stiffness upon trying to move her right leg actively on exam. The pain is in her right hip and is reportedly secondary to laying in bed all day today. reports her baseline activity status is two-person assist twice weekly with 1 assist all other times. Recently she has been requiring 2 person assist more consistently. She is on anticoagulation but is not therapeutic. Head CT performed today revealed no acute intracranial abnormality and CT C-spine revealed degenerative changes without evidence of acute bony injury. She denies any respiratory symptoms in her chest x-ray is clear. She did undergo a CT abdomen pelvis without contrast which revealed an acute nondisplaced fracture of L5 with subacute fractures of T8 and a chronic fracture of T9 and T10. There is no other intra-abdominal abnormality seen. The patient is requesting food and is otherwise in good spirits. She currently is in assisted living. On exam she is an obese female with generalized weakness. She can move her arms and legs equally. She is unable to sit up independently. As noted above she is oriented to person and place. She cannot give a history of events. [place] is clear. Head is normocephalic atraumatic and there is no other sequelae of her fall that can be seen. Cardiac exam reveals S1-S2 heard with regular rate and rhythm and no murmurs. Lungs are clear to auscultation bilaterally. Abdomen feels slightly tense as if she is tensing her muscles voluntarily, without distention or guarding. There does not appear to be any pain with palpation of her abdomen. Work-up includes imaging as noted above. Lab work reveals a CBC with no evidence of leukocytosis. H&H is stable with 11.2/32.6. INR is 1.2, CHEM panel is within normal limits. Total CK is 172 highly sensitive troponin is normal. TSH is normal. Urinalysis reveals evidence of UTI. No other clear source of infection is seen. EKG reveals sinus rhythm with first-degree AV block and no changes consistent with acute ischemia. In the ER she was given Rocephin 2 g IV and a 500 cc of fluid. 1. Acute metabolic encephalopathy 2/2 UTI 2. Fall with generalized weakness possibly exacerbated by acute urinary tract infection 3. Acute nondisplaced fracture of L5 vertebral body likely secondary to fall and related to osteoporosis 4. Urinary tract infection 5. Recurrent DVT with subtherapeutic INR Agree with continuing empiric antibiotics pending culture results and clinical improvement. She is not septic. Agree with continuing anticoagulation pending therapeutic INR with continued dose with warfarin. Recommend daily INR given onboarding of antibiotics which can change this quickly. PT/OT consults to assess needs. Appreciate case management assistance with fitting the resource with the patient needs. It may be that her urinary tract infection made her more weak than normal and she will improve. Unfortunately, orthospine is not able to evaluate her. We will continue supportive care for her L5 fracture and consider an orthotic consultation for TLSO brace. Defer to primary team in a.m. depending on how she is doing and therapist recommendations. DO Buck (3) Urinary tract infection Hematuria presence: without hematuria Urinary tract infection type: site unspecified Qualified Code(s): N39.0 - Urinary tract infection, site not specified
[2023-01-06] MEDS ORDERED: cefTRIAXone SODIUM 2,000 MG/70 ML BAG IV STA (16:20)
[2023-01-06] MEDS ORDERED: ONDANSETRON INJ 2 MG/ML 2 ML VIAL IV PRN (18:23)
[2023-01-06] MEDS ORDERED: POLYETHYLENE (MIRALAX) 17 GM PACK PO PRN (18:23)
[2023-01-06] MEDS ORDERED: DICLOFENAC SOD 1% GEL 100 GM TUBE EXT PRN (18:23)
[2023-01-06] MEDS ORDERED: ARTIFICIAL TEARS OP OINT 3.5 GM TUBE OP PRN (18:29)
--- NOTE | 2023-01-06 18:36 | Electrocardiogram Report ---
Test Reason : Blood Pressure : / mmHG Vent. Rate : 068 BPM Atrial Rate : 068 BPM P-R Int : 228 ms QRS Dur : 070 ms QT Int : 412 ms P-R-T Axes : 073 -19 039 degrees QTc Int : 438 ms Sinus rhythm with 1st degree A-V block Low voltage QRS Inferior infarct , age undetermined Possible Anterolateral infarct (cited on or before 06-JAN-2023) Abnormal ECG Confirmed by Miguelangel Irby ([id number]) on 01/06/2023 6:36:15 PM Referred By: Amy ambrose [facility] Confirmed By:Kimo Irby
[2023-01-06] MEDS ORDERED: ENOXAPARIN 1 MG/KG SC SCH (18:45)
[2023-01-06] MEDS: WARFARIN SOD 5 MG TAB PO SCH (19:45)
[2023-01-06] MEDS: ACETAMINOPHEN 325 MG TAB PO SCH (19:47)
[2023-01-06] MEDS: ATORVASTATIN 10 MG TAB PO SCH (19:47)
[2023-01-06] MEDS: ENOXAPARIN INJ 40 MG/0.4 ML SYR SQ SCH (19:51)
[2023-01-07 06:28] LABS: Hematocrit (blood only) 34.5 % (37.0-47.0); Hemoglobin 11.5 g/dl (12.0-16.0); Mean Corpuscular Hemoglobin 32.1 pg (25.0-34.0); Mean Corpuscular Hgb Conc 33.3 g/dL (32.0-36.0); Mean Corpuscular Volume 96.4 fL (80.0-100.0); Mean Platelet Volume 9.9 fL (9.4-12.4); Platelet Count 171 K/uL (130-400); RDW Coefficient of Variation 14.2 % (11.5-14.5); RDW Standard Deviation 50.6 fL (36.4-46.3); Red Blood Count 3.58 M/uL (4.20-5.40); White Blood Count 5.12 K/ul (4.8-10.8)
[2023-01-07 06:51] LABS: BUN Creatinine Ratio 20.5 (10-20); Calcium 8.5 mg/dl (8.6-10.3); Creatinine Clr Calc Pharmacy 113.8 ml/min; Est GFR (African American) 108.2 ml/min; Est GFR (Non-African American) 93.3 ml/min; INR 1.3 (0.9-1.1); Potassium 3.9 mmol/L (3.5-5.1); Prothrombin Time 13.7 Seconds (9.0-12.0)
[2023-01-07] MEDS: amLODIPine BESYLATE 5 MG TAB PO SCH (08:22)
[2023-01-07] MEDS: ACETAMINOPHEN 325 MG TAB PO SCH ×3 (08:22→19:48)
[2023-01-07] MEDS: CHOLECALCIFEROL 1,000 UNITS 25 MCG TAB PO SCH (08:22)
[2023-01-07] MEDS: ESCITALOPRAM OXALATE 20 MG TAB PO SCH (08:23)
[2023-01-07] MEDS: ENOXAPARIN INJ 40 MG/0.4 ML SYR SQ SCH (08:23)
[2023-01-07] MEDS: cefTRIAXone SODIUM 2,000 MG in DEXTROSE 5% 50 ML IV SCH (08:31)
--- NOTE | 2023-01-07 10:48 | Hospitalist Progress Note ---
Date of Service January 07, 2023 Assessment & Plan (1) Altered mental status: (2) Metabolic encephalopathy: Plan: Patient is 82-year-old female with PMH HTN, HLD, CKD III, history of DVT/PE, chronically anticoagulated on warfarin, history of vertebral artery dissection, history recurrent falls, history SDH secondary to fall in 03/2022 treated conservatively, h/o lumbar laminectomy, history T8 compression fracture, depression presented to ER for altered mental status Likely metabolic encephalopathy secondary to UTI CT head: No acute intracranial abnormality. Unchanged ventricular dilation which may be an ex vacuo basis. Normal pressure hydrocephalus could appear similarly. CT C-spine: No acute fractures or subluxations Labs reviewed; no leukocytosis. BUN/creatinine within normal limits Started on Rocephin. Follow-up on urine culture. Blood culture ordered. (3) Urinary tract infection: Plan: UA + nitrate, 2+ leuk esterase, 20-30 epithelial, 4+ bacteria Urine culture pending Continue Rocephin pending culture results Also follow-up on blood culture. (4) Fall: (5) Ambulatory dysfunction: Plan: Fall reported yesterday. History recurrent falls. History ambulatory dysfunction Fall precautions PT/OT eval Reported patient has been requiring 2 person assist for standing and ambulating with walker. Has needed more care than is available at current assisted living. Will likely need to look into further placement (6) L5 vertebral fracture: Plan: CT abdomen pelvis: Acute nondisplaced fracture through the left inferior aspect of the L5 vertebral body. No additional acute fractures. Moderate T8 compression fracture, likely subacute. Chronic T9 and T10 compression fractures. Patient with chronic back pain. Is denying any increased back pain [facility] consult is unavailable currently. Orthotics consulted for TLSO brace. (7) History of compression fracture of spine: Plan: Chronic T8 compression fracture. Chronic T9 compression fracture Review CT from 03/31/2022 in epic: Acute T8 vertebral body compression fracture, chronic compression fracture at T9 Continue scheduled Tylenol, topical diclofenac as needed (8) History of dysphagia: Plan: Staff from assisted living report patient had been having noted coughing while eating meals Aspiration precautions Speech eval (9) History of pulmonary embolism: Plan: History PE, chronic DVT Chronically anticoagulated on warfarin INR: 1.2 INR subtherapeutic. Lovenox bridging with warfarin ordered. Stop therapeutic dose of Lovenox when PT/INR is greater than 2. Monitor PT/INR daily. Patient is started on 5 mg of Coumadin. At home patient is on 2.5 mg of Coumadin Thursday and Thursday and 5 mg on remaining 3 days. (10) HTN (hypertension): Plan: Continue amlodipine (11) HLD (hyperlipidemia): Plan: Continue atorvastatin (12) Depression: Plan: Continue citalopram (13) Neuropathy: Plan: Currently holding gabapentin as patient with altered mental status DVT Prophylaxis Lovenox and Coumadin bridging. Full Code as per discussion with patient and patient's Follows with Gurjit Diaz PA-C for routine care Time spent evaluating patient, direct bedside care, chart review, placing orders, interpretation of diagnostic studies, discussion with consultants, patient, and family members, as well as other required patient management activities is 60 minutes. Please note the above document was generated using voice recognition software. It may contain grammatical, syntax or spelling errors. Any formal questions or concerns about the content, text or information contained within the body of this dictation should be directly addressed to the provider for clarification Admission and Anticipated Discharge Date Admission Date: January 06, 2023 Subjective Patient seen and examined at bedside. She is sitting up on the bed; appears lethargic. Review of Systems Review of Systems: Unobtainable due to cognitive status Physical Exam Physical Exam: General: no acute distress, obese Lungs: clear, no respiratory distress, no wheezing/rhonchi/rales CV: RRR, no murmur, 1+ pretibial edema Abd: +protuberant, normal BS, soft, non-tender, no CVA tenderness to palpation Back: no discolorations, non-tender to palpation lumbar spine Ext: no cyanosis, no calf tenderness Neuro: Alert, oriented to person only. Slow to answer questions. Initially gives one word answers, intermittently will give full answers, no focal deficits noted, somewhat flat affect Skin: warm, dry Results & Data Results & Data Vital Signs (Past 12 Hours) Vital Signs Temp Pulse Pulse Resp BP Pulse Ox O2 Del Method 01/07/23 07:55 37.6 C H 83 16 165/73 H 94 Room Air 01/07/23 07:38 80 01/07/23 03:19 36.7 C 81 18 139/77 93 Room Air 01/06/23 23:01 37.0 C 78 18 113/68 95 Room Air 01/06/23 23:18 79 Laboratory Results Laboratory Results WBC 5.12 K/ul (4.8-10.8) 01/07/23 05:59 RBC 3.58 M/uL (4.20-5.40) L 01/07/23 05:59 Hgb 11.5 g/dl (12.0-16.0) L 01/07/23 05:59 Hct 34.5 % (37.0-47.0) L 01/07/23 05:59 MCV 96.4 fL (80.0-100.0) 01/07/23 05:59 MCH 32.1 pg (25.0-34.0) 01/07/23 05:59 MCHC 33.3 g/dL (32.0-36.0) 01/07/23 05:59 RDW Std Deviation 50.6 fL (36.4-46.3) H 01/07/23 05:59 RDW Coeff of Joselito 14.2 % (11.5-14.5) 01/07/23 05:59 Plt Count 171 K/uL (130-400) 01/07/23 05:59 MPV 9.9 fL (9.4-12.4) 01/07/23 05:59 Immature Gran % (Auto) 0.3 % 01/06/23 14:20 Neut % (Auto) 66.4 % 01/06/23 14:20 Lymph % (Auto) 20.1 % 01/06/23 14:20 [place] % (Auto) 9.0 % 01/06/23 14:20 Eos % (Auto) 3.7 % 01/06/23 14:20 Baso % (Auto) 0.5 % 01/06/23 14:20 Neut # (Auto) 3.97 K/uL (1.40-6.50) 01/06/23 14:20 Lymph # (Auto) 1.20 K/uL (1.2-3.4) 01/06/23 14:20 [place] # (Auto) 0.54 K/uL (0.11-0.59) 01/06/23 14:20 Eos # (Auto) 0.22 K/uL (0-0.50) 01/06/23 14:20 Baso # (Auto) 0.03 K/uL (0-0.2) 01/06/23 14:20 Immature Gran # (Auto) 0.02 K/uL (0.01-0.20) 01/06/23 14:20 PT 13.7 Seconds (9.0-12.0) H 01/07/23 05:59 INR 1.3 (0.9-1.1) H 01/07/23 05:59 APTT 28.5 Seconds (21.0-31.0) 01/06/23 14:20 PTT Ratio 1.0 01/06/23 14:20 Sodium 138 mmol/L (136-145) 01/07/23 05:59 Potassium 3.9 mmol/L (3.5-5.1) 01/07/23 05:59 Chloride 107 mmol/L (98-107) 01/07/23 05:59 Carbon Dioxide 25 mmol/L (21-32) 01/07/23 05:59 Anion Gap 6 (3-11) 01/07/23 05:59 BUN 9 mg/dl (6-23) 01/07/23 05:59 Creatinine 0.44 mg/dl (0.6-1.2) L 01/07/23 05:59 Est Cr Clr Drug Dosing 113.8 ml/min 01/07/23 05:59 Est GFR ( Amer) 108.2 ml/min 01/07/23 05:59 Est GFR (Non-Af Amer) 93.3 ml/min 01/07/23 05:59 BUN/Creatinine Ratio 20.5 (10-20) H 01/07/23 05:59 Glucose 105 mg/dl (70-99(Fasting)) H 01/07/23 05:59 Calcium 8.5 mg/dl (8.6-10.3) L 01/07/23 05:59 Magnesium 1.9 mg/dl (1.7-2.4) 01/06/23 14:20 Total Bilirubin 0.6 mg/dl (0.2-1.0) 01/06/23 14:20 AST 16 U/L (13-39) 01/06/23 14:20 ALT 10 U/L (7-52) 01/06/23 14:20 Alkaline Phosphatase 83 U/L (34-104) 01/06/23 14:20 Total Creatine Kinase 172 U/L (26-192) 01/06/23 14:20 Troponin I High Sens 5.9 pg/ml (0-14) 01/06/23 14:20 Total Protein 6.4 gm/dl (6.0-8.3) 01/06/23 14:20 Albumin 3.5 gm/dl (3.4-5.0) 01/06/23 14:20 Globulin 2.9 gm/dl (2.5-4.0) 01/06/23 14:20 Albumin/Globulin Ratio 1.2 (0.9-2) 01/06/23 14:20 TSH 1.927 uIu/ml (0.300-4.500) 01/06/23 14:20 Urine Color Yellow 01/06/23 15:40 Urine Appearance Cloudy (Clear) A 01/06/23 15:40 Urine pH 6.5 (4.5-7.5) 01/06/23 15:40 Ur Specific [place] 1.018 (1.000-1.030) 01/06/23 15:40 Urine Protein Negative (Negative) 01/06/23 15:40 Urine Glucose (UA) Negative (Negative) 01/06/23 15:40 Urine Ketones Trace (Negative) H 01/06/23 15:40 Urine Blood Negative (Negative) 01/06/23 15:40 Urine Nitrite Positive (Negative) A 01/06/23 15:40 Urine Bilirubin Negative (Negative) 01/06/23 15:40 Urine Urobilinogen Negative (Negative) 01/06/23 15:40 Ur Leukocyte Esterase 2+ (Negative) H 01/06/23 15:40 Urine WBC (Auto) 1-5 /hpf (0-5) 01/06/23 15:40 Urine RBC (Auto) 0-4 /hpf (0-4) 01/06/23 15:40 U Hyaline Cast (Auto) 1-5 /lpf (0-5) 01/06/23 15:40 U Epithel Cells (Auto) 20-30 /lpf (0-5) H 01/06/23 15:40 Urine Bacteria (Auto) 4+ (Negative) H 01/06/23 15:40 Urine Yeast Not Reportable 01/06/23 15:40 SARS-CoV-2, RNA, NAAT NEGATIVE (NEGATIVE) 01/06/23 14:30 Impressions Abdomen/Pelvis CT 01/06/23 14:03 CT OF THE ABDOMEN AND PELVIS WITHOUT CONTRAST CLINICAL HISTORY: Fall. Abdominal distention. COMPARISON STUDY: Pelvis radiograph March 11, 2019. TECHNIQUE: Axial images of the abdomen and pelvis were obtained without IV contrast. Images were reviewed in the axial, sagittal, and coronal planes. Automated exposure control was utilized for the study. A dose lowering technique was utilized adhering to the principles of ALARA. FINDINGS: Subpleural opacities within the lower lungs favor atelectasis. No hemoperitoneum or pneumoperitoneum is present. There is a small hiatal hernia. Evaluation of the solid abdominal viscera is suboptimal on this unenhanced exam but there is no evidence for traumatic injury to the liver, spleen, adrenal glands, kidneys or pancreas. A water attenuation 8.4 cm left renal lesion favors a cyst. Low-attenuation lesion within the lower pole of the right kidney also favors a cyst. There is a 5 mm calcification within the inferior left renal sinus. There are no ureteral calculi. There are hypodense foci within the renal sinuses. These probably reflect parapelvic cysts within correlating with MRI of the lumbar spine of May 08, 2015. There is no evidence for a bowel obstruction. Colonic diverticulosis is present. No evidence for acute diverticulitis. No acute proximal femoral fracture is noted. Note is made of an acute nondisplaced fracture through the left inferior aspect of the L5 vertebral body shown on axial image 238 of 389. This is new since the lumbar spine CT March 30, 2022. This extends to adjacent osteophytes. Postoperative findings within the lumbar spine are present. No additional acute fractures are present. A moderate T8 compression fracture is likely subacute to chronic. Mild T9 and T10 compression fractures appear chronic. Mild stranding within the right buttock is noted. Cholelithiasis. No evidence for acute cholecystitis. IMPRESSION: 1. No hemoperitoneum or pneumoperitoneum. No evidence for traumatic injury to the solid abdominal viscera on unenhanced exam. 2. Acute nondisplaced fracture through the left inferior aspect of the L5 vertebral body. No additional acute fractures. 3. Moderate T8 compression fracture, likely subacute. Chronic T9 and T10 compression fractures. 4. Suspected small right buttock contusion. 5. Cholelithiasis. No evidence for acute cholecystitis. 6. Colonic diverticulosis. No evidence for acute diverticulitis. ACT 112: Negative or not required by law. Electronically signed by: Aba Oliveira M.D. 01/06/2023 3:[address] 01/06/23 14:03 CT cervical spine wo con CLINICAL HISTORY: fall TECHNIQUE: Multidetector row helical CT of the cervical spine was performed without administration of intravenous contrast. Coronal and sagittal reformations were obtained. Automated dose lowering techniques and/or adjustment according to patient size were utilized for this exam. Comparison: Comparison is made to CT cervical spine 03/30/2022 FINDINGS: No acute fractures or subluxations are identified. Degenerative changes are seen in the visualized spine. The alignment is normal. Biapical scarring is seen. IMPRESSION: Degenerative changes without evidence of acute bony injury. ACT 112: Negative or not required by law. Electronically signed by: Josesito Sierra M.D. 01/06/2023 3:07 PM Chest X-Ray 01/06/23 14:03 XR chest 1V portable CLINICAL HISTORY: weakness TECHNIQUE: Single frontal radiograph of the chest was obtained. Comparison: Comparison is made to chest radiograph 03/11/2019 FINDINGS: No lines and tubes are seen. The cardiomediastinal silhouette is stable. The lungs are clear. No evidence of pleural effusion or pneumothorax. IMPRESSION: No acute chest disease. ACT 112: Negative or not required by law. Electronically signed by: Josesito Sierra M.D. 01/06/2023 3:[address] 01/06/23 14:03 CT head/brain wo con CLINICAL HISTORY: 82 years-old Female with ams. Acute head injury status post fall TECHNIQUE: Multiple axial CT images of the head were obtained without contrast. A dose lowering technique was utilized adhering to the principles of ALARA. CT DOSE: 2579.11 mGy.cm COMPARISON: 03/30/2022. FINDINGS: No acute intracranial hemorrhage, midline shift, intracranial mass, acute territorial ischemia or abnormal extra-axial collection. Involutional changes with chronic microvascular ischemic disease. Unchanged ventriculomegaly. The calvarium is intact. Mastoid air cells are clear. Severe near complete opacification of the left sphenoid sinus. Prior partial ethmoidectomy. Elongation of the bilateral globes. Prior bilateral lens repair. IMPRESSION: 1. No acute intracranial abnormality. 2. Unchanged ventricular dilation which may be an ex vacuo basis. Normal pressure hydrocephalus could appear similarly. ACT 112: Negative or not required by law. The above report was generated using voice recognition software. It may contain grammatical, syntax or spelling errors. Electronically signed by: Maxim Sales M.D. 01/06/2023 2:59 PM (3) Urinary tract infection Hematuria presence: without hematuria Urinary tract infection type: site unspecified Qualified Code(s): N39.0 - Urinary tract infection, site not specified
[2023-01-07] MEDS ORDERED: ENOXAPARIN INJ 60 MG/0.6 ML SYR SQ ONE (11:00)
[2023-01-07] MEDS: WARFARIN SOD 5 MG TAB PO SCH (17:00)
[2023-01-07] MEDS: ATORVASTATIN 10 MG TAB PO SCH (19:50)
[2023-01-08] MEDS: ENOXAPARIN 100 MG/1ML SYR SQ SCH ×3 (00:08→23:23)
[2023-01-08 07:21] LABS: Basophils # (auto) 0.04 K/uL (0-0.2); Basophils % (auto) 0.7 %; Eosinophils # (auto) 0.14 K/uL (0-0.50); Eosinophils % (auto) 2.6 %; Hematocrit (blood only) 32.8 % (37.0-47.0); Immature Granulocytes # (auto) 0.03 K/uL (0.01-0.20); Immature Granulocytes % (auto) 0.6 %; Lymphocytes % (auto) 16.5 %; Mean Corpuscular Hgb Conc 33.5 g/dL (32.0-36.0); Mean Corpuscular Volume 95.3 fL (80.0-100.0); Mean Platelet Volume 10.3 fL (9.4-12.4); Monocytes # (auto) 0.66 K/uL (0.11-0.59); Monocytes % (auto) 12.1 %; Neutrophils # (auto) 3.67 K/uL (1.40-6.50); Neutrophils % (auto) 67.5 %; Platelet Count 164 K/uL (130-400); RDW Coefficient of Variation 13.9 % (11.5-14.5); RDW Standard Deviation 48.9 fL (36.4-46.3); Red Blood Count 3.44 M/uL (4.20-5.40); White Blood Count 5.44 K/ul (4.8-10.8)
[2023-01-08 07:29] LABS: INR 1.5 (0.9-1.1); Prothrombin Time 16.5 Seconds (9.0-12.0)
[2023-01-08 07:30] LABS: BUN Creatinine Ratio 22.2 (10-20); Calcium 8.6 mg/dl (8.6-10.3); Est GFR (African American) 101.1 ml/min; Est GFR (Non-African American) 87.3 ml/min; Potassium 3.9 mmol/L (3.5-5.1)
[2023-01-08] MEDS: ACETAMINOPHEN 325 MG TAB PO SCH ×3 (08:50→20:53)
[2023-01-08] MEDS: CHOLECALCIFEROL 1,000 UNITS 25 MCG TAB PO SCH (08:50)
[2023-01-08] MEDS: ESCITALOPRAM OXALATE 20 MG TAB PO SCH (08:50)
[2023-01-08] MEDS: amLODIPine BESYLATE 5 MG TAB PO SCH (08:50)
[2023-01-08] MEDS: cefTRIAXone SODIUM 2,000 MG in DEXTROSE 5% 50 ML IV SCH (08:51)
--- NOTE | 2023-01-08 14:47 | Hospitalist Progress Note ---
Date of Service January 08, 2023 Assessment & Plan (1) Altered mental status: (2) Metabolic encephalopathy: Plan: per Dr. Bowden's notes with addendum: Patient is 82-year-old female with PMH HTN, HLD, CKD III, history of DVT/PE, chronically anticoagulated on warfarin, history of vertebral artery dissection, history recurrent falls, history SDH secondary to fall in 03/2022 treated conservatively, h/o lumbar laminectomy, history T8 compression fracture, depression presented to ER for altered mental status Likely metabolic encephalopathy secondary to UTI CT head: No acute intracranial abnormality. Unchanged ventricular dilation which may be an ex vacuo basis. Normal pressure hydrocephalus could appear similarly. CT C-spine: No acute fractures or subluxations No significant electrolyte abnormality Treat UTI as below Hold gabapentin for now Monitor CBC, BMP in a.m. 01/08 mental status improving Urine culture: E Coli Blood cultures: pending continue IV Ceftriaxone (3) Urinary tract infection: Plan: per above (4) Fall: (5) Ambulatory dysfunction: Plan: Fall reported yesterday. History recurrent falls. History ambulatory dysfunction Fall precautions PT/OT eval Reported patient has been requiring 2 person assist for standing and ambulating with walker. Has needed more care than is available at current assisted living. Will likely need to look into further placement (6) L5 vertebral fracture: Plan: CT abdomen pelvis: Acute nondisplaced fracture through the left inferior aspect of the L5 vertebral body. No additional acute fractures. Moderate T8 compression fracture, likely subacute. Chronic T9 and T10 compression fractures. Patient with chronic back pain. Is denying any increased back pain [facility] consult is unavailable currently. 01/08 pain well controlled on Tylenol TID (7) History of compression fracture of spine: Plan: Chronic T8 compression fracture. Chronic T9 compression fracture Review CT from 03/31/2022 in epic: Acute T8 vertebral body compression fracture, chronic compression fracture at T9 Continue scheduled Tylenol, topical diclofenac as needed (8) History of dysphagia: Plan: Staff from assisted living report patient had been having noted coughing while eating meals Aspiration precautions Speech eval : regular diet (9) History of pulmonary embolism: Plan: History PE, chronic DVT Chronically anticoagulated on warfarin INR: 1.5 continue coumadin + lovenox (10) HTN (hypertension): Plan: Continue amlodipine (11) HLD (hyperlipidemia): Plan: Continue atorvastatin (12) Depression: Plan: Continue citalopram (13) Neuropathy: Plan: Currently holding gabapentin as patient with altered mental status DVT Prophylaxis Lovenox SQ until INR therapeutic with warfarin Full Code as per discussion with patient and patient's Follows with Gurjit Diaz PA-C for routine care Admission and Anticipated Discharge Date Admission Date: January 06, 2023 Subjective ff up for uti, etc seen resting in bed, comfortable in good spirits oriented x 1-2 states she feels ok overall no abdominal pain, urinary symptoms, nausea/vomiting, chills has intermittent back pain no other symptoms Review of Systems Review of Systems: all noted and negative except for above Physical Exam Physical Exam: General- oriented x 1-2, not in distress, speaks in sentences with no effort or accessory muscle use Eyes- anicteric Neck- no JVD Lungs- clear breath sounds bilaterally, no rales/wheezes Heart- normal rate, regular rhythm; no murmurs Abdomen- normal bowel sounds, nondistended, soft, nontender Extremities- trace bilateral lower leg edema, no calf tenderness Neuro- alert, oriented x 1-2; no gross focal neurologic deficits Skin- warm & dry Results & Data Results & Data Vital Signs (Past 12 Hours) Vital Signs Temp Pulse Pulse Resp BP BP Pulse Ox 01/08/23 12:11 36.5 C 90 16 145/77 H 93 01/08/23 08:50 01/08/23 08:22 37.2 C 70 16 145/68 H 91 01/08/23 07:31 67 01/08/23 04:15 36.9 C 83 18 140/70 92 O2 Del Method 01/08/23 12:11 Room Air 01/08/23 08:50 Room Air 01/08/23 08:22 Room Air 01/08/23 07:31 01/08/23 04:15 Room Air all noted and reviewed including below (3) Urinary tract infection Hematuria presence: without hematuria Urinary tract infection type: site unspecified Qualified Code(s): N39.0 - Urinary tract infection, site not spe cified
[2023-01-08] MEDS: WARFARIN SOD 5 MG TAB PO SCH (15:17)
[2023-01-08] MEDS: ATORVASTATIN 10 MG TAB PO SCH (20:53)
[2023-01-09 08:05] LABS: Basophils # (auto) 0.03 K/uL (0-0.2); Basophils % (auto) 0.3 %; Eosinophils # (auto) 0.01 K/uL (0-0.50); Eosinophils % (auto) 0.1 %; Hematocrit (blood only) 31.9 % (37.0-47.0); Hemoglobin 10.7 g/dl (12.0-16.0); Immature Granulocytes # (auto) 0.03 K/uL (0.01-0.20); Immature Granulocytes % (auto) 0.3 %; Lymphocytes # (auto) 1.16 K/uL (1.2-3.4); Mean Corpuscular Hemoglobin 31.8 pg (25.0-34.0); Mean Corpuscular Hgb Conc 33.5 g/dL (32.0-36.0); Mean Corpuscular Volume 94.7 fL (80.0-100.0); Mean Platelet Volume 10.2 fL (9.4-12.4); Monocytes # (auto) 1.07 K/uL (0.11-0.59); Neutrophils # (auto) 6.62 K/uL (1.40-6.50); Neutrophils % (auto) 74.3 %; Platelet Count 179 K/uL (130-400); RDW Coefficient of Variation 14.1 % (11.5-14.5); RDW Standard Deviation 49.1 fL (36.4-46.3); Red Blood Count 3.37 M/uL (4.20-5.40); White Blood Count 8.92 K/ul (4.8-10.8)
[2023-01-09 08:26] LABS: Calcium 8.5 mg/dl (8.6-10.3); Creatinine Clr Calc Pharmacy 95.6 ml/min; Est GFR (African American) 102.4 ml/min; Est GFR (Non-African American) 88.4 ml/min; Potassium 4.1 mmol/L (3.5-5.1)
[2023-01-09] MEDS: ACETAMINOPHEN 325 MG TAB PO SCH ×3 (08:33→20:28)
[2023-01-09] MEDS: CHOLECALCIFEROL 1,000 UNITS 25 MCG TAB PO SCH (08:34)
[2023-01-09] MEDS: cefTRIAXone SODIUM 2,000 MG in DEXTROSE 5% 50 ML IV SCH (08:34)
[2023-01-09] MEDS: amLODIPine BESYLATE 5 MG TAB PO SCH (08:34)
[2023-01-09] MEDS: ESCITALOPRAM OXALATE 20 MG TAB PO SCH (08:34)
[2023-01-09 08:43] LABS: INR 2.1 (0.9-1.1); Prothrombin Time 21.5 Seconds (9.0-12.0)
[2023-01-09] MEDS: WARFARIN SOD 5 MG TAB PO SCH (15:12)
--- NOTE | 2023-01-09 15:34 | Hospitalist Progress Note ---
Date of Service January 09, 2023 Assessment & Plan (1) Altered mental status: (2) Metabolic encephalopathy: Plan: per Dr. Bowden's notes with addendum: Patient is 82-year-old female with PMH HTN, HLD, CKD III, history of DVT/PE, chronically anticoagulated on warfarin, history of vertebral artery dissection, history recurrent falls, history SDH secondary to fall in 03/2022 treated conservatively, h/o lumbar laminectomy, history T8 compression fracture, depression presented to ER for altered mental status Likely metabolic encephalopathy secondary to UTI CT head: No acute intracranial abnormality. Unchanged ventricular dilation which may be an ex vacuo basis. Normal pressure hydrocephalus could appear similarly. CT C-spine: No acute fractures or subluxations No significant electrolyte abnormality Treat UTI as below Hold gabapentin for now Monitor CBC, BMP in a.m. 01/09 mental status mostly back to baseline Urine culture: E Coli Blood cultures: negative x 2 days continue IV Ceftriaxone (3) Urinary tract infection: Plan: per above (4) Fall: (5) Ambulatory dysfunction: Plan: Fall reported yesterday. History recurrent falls. History ambulatory dysfunction Fall precautions PT/OT eval Reported patient has been requiring 2 person assist for standing and ambulating with walker. Has needed more care than is available at current assisted living. Will likely need to look into further placement (6) L5 vertebral fracture: Plan: CT abdomen pelvis: Acute nondisplaced fracture through the left inferior aspect of the L5 vertebral body. No additional acute fractures. Moderate T8 compression fracture, likely subacute. Chronic T9 and T10 compression fractures. Patient with chronic back pain. Is denying any increased back pain [facility] consult is unavailable currently. 01/09 pain well controlled on Tylenol TID (7) History of compression fracture of spine: Plan: Chronic T8 compression fracture. Chronic T9 compression fracture Review CT from 03/31/2022 in epic: Acute T8 vertebral body compression fracture, chronic compression fracture at T9 Continue scheduled Tylenol, topical diclofenac as needed (8) History of dysphagia: Plan: Staff from assisted living report patient had been having noted coughing while eating meals Aspiration precautions Speech eval : regular diet (9) History of pulmonary embolism: Plan: History PE, chronic DVT Chronically anticoagulated on warfarin INR: 2.1 continue coumadin 3mg daily (10) HTN (hypertension): Plan: Continue amlodipine (11) HLD (hyperlipidemia): Plan: Continue atorvastatin (12) Depression: Plan: Continue citalopram (13) Neuropathy: Plan: Currently holding gabapentin as patient with altered mental status DVT Prophylaxis coumadin Full Code as per discussion with patient and patient's Follows with Gurjit Diaz PA-C for routine care Admission and Anticipated Discharge Date Admission Date: January 06, 2023 Subjective ff up for UTI, etc seen resting in bed, comfortable states she feels fine overall having breakfast, appetite good answers most questions appropriately denies pain no chest pain, dyspnea, palpitations, dizziness no other new symptoms Review of Systems Review of Systems: all noted and negative except for above Physical Exam Physical Exam: General- oriented x 1-2, not in distress, speaks in sentences with no effort or accessory muscle use Eyes- anicteric Neck- no JVD Lungs- clear breath sounds bilaterally Heart- normal rate, regular rhythm; no murmurs Abdomen- normal bowel sounds, nondistended, soft, nontender Extremities- no pretibial edema, no calf tenderness Neuro- alert, oriented x 1-2; no new gross focal neurologic deficits Skin- warm & dry Results & Data Results & Data Vital Signs (Past 12 Hours) Vital Signs Temp Pulse Pulse Resp BP BP Pulse Ox 01/09/23 15:00 70 01/09/23 14:47 37 C 89 20 127/74 92 01/09/23 11:35 36.5 C 72 18 107/63 94 01/09/23 08:30 01/09/23 08:06 37.1 C 72 18 146/71 H 93 01/09/23 07:10 75 01/09/23 03:48 36.9 C 72 16 130/68 94 O2 Del Method 01/09/23 15:00 01/09/23 14:47 Room Air 01/09/23 11:35 Room Air 01/09/23 08:30 Room Air 01/09/23 08:06 Room Air 01/09/23 07:10 01/09/23 03:48 Room Air all noted and reviewed including below (3) Urinary tract infection Hematuria presence: without hematuria Urinary tract infection type: site unspecified Qualified Code(s): N39.0 - Urinary tract infection, site not specified
[2023-01-09] MEDS: WARFARIN SOD 3 MG TAB PO SCH (15:52)
[2023-01-09] MEDS: ATORVASTATIN 10 MG TAB PO SCH (20:28)
--- NOTE | 2023-01-10 07:56 | Hospitalist Progress Note ---
Date of Service January 10, 2023 Assessment & Plan (1) Altered mental status: (2) Metabolic encephalopathy: Plan: per Dr. Bowden's notes with addendum: Patient is 82-year-old female with PMH HTN, HLD, CKD III, history of DVT/PE, chronically anticoagulated on warfarin, history of vertebral artery dissection, history recurrent falls, history SDH secondary to fall in 03/2022 treated conservatively, h/o lumbar laminectomy, history T8 compression fracture, depression presented to ER for altered mental status Likely metabolic encephalopathy secondary to UTI CT head: No acute intracranial abnormality. Unchanged ventricular dilation which may be an ex vacuo basis. Normal pressure hydrocephalus could appear similarly. CT C-spine: No acute fractures or subluxations No significant electrolyte abnormality Treat UTI as below Hold gabapentin for now Monitor CBC, BMP in a.m. 01/10 mental status mostly back to baseline Urine culture: E Coli Blood cultures: negative x 2 days complete 5 day course of IV Ceftriaxone will need 2 more days of Cefuroxime to complete 1 week course (3) Urinary tract infection: Plan: per above (4) Fall: (5) Ambulatory dysfunction: Plan: Fall reported day before admission. History recurrent falls. History ambulatory dysfunction Fall precautions PT/OT eval Reported patient has been requiring 2 person assist for standing and ambulating with walker. Has needed more care than is available at current assisted living transition to [facility] (6) L5 vertebral fracture: Plan: CT abdomen pelvis: Acute nondisplaced fracture through the left inferior aspect of the L5 vertebral body. No additional acute fractures. Moderate T8 compression fracture, likely subacute. Chronic T9 and T10 compression fractures. Patient with chronic back pain. Orthospine consult is unavailable currently. 01/09 pain well controlled on Tylenol TID, wean off accordingly (7) History of compression fracture of spine: Plan: Chronic T8 compression fracture. Chronic T9 compression fracture Review CT from 03/31/2022 in epic: Acute T8 vertebral body compression fracture, chronic compression fracture at T9 Continue scheduled Tylenol, topical diclofenac as needed (8) History of dysphagia: Plan: Staff from assisted living report patient had been having noted coughing while eating meals Aspiration precautions Speech therapy evaluation: Regular diet (9) History of pulmonary embolism: Plan: History PE, chronic DVT Chronically anticoagulated on warfarin INR: 2.4 continue coumadin Doppler US of legs: negative for DVT (10) HTN (hypertension): Plan: Continue amlodipine (11) HLD (hyperlipidemia): Plan: Continue atorvastatin (12) Depression: Plan: Continue citalopram (13) Neuropathy: Plan: Currently holding gabapentin as patient with altered mental status DVT Prophylaxis coumadin Full Code as per discussion with patient and patient's Follows with Gurjit Diaz PA-C for routine care Admission and Anticipated Discharge Date Admission Date: January 06, 2023 Subjective ff up for UTI, etc seen resting in bed, comfortable mostly sleeping no signs of pain, discomfort no acute issues per RN no other symptoms Review of Systems Review of Systems: all noted and negative except for above Physical Exam Physical Exam: General-not in distress Eyes- anicteric Neck- no JVD Lungs- clear BS bilaterally Heart- normal rate, regular rhythm; no murmurs Abdomen- normal bowel sounds, nondistended, soft, no tenderness Extremities- no pretibial edema, no calf tenderness Neuro- no new gross focal neurologic deficits Skin- warm & dry Results & Data Results & Data Vital Signs (Past 12 Hours) Vital Signs Temp Pulse Pulse Resp BP BP Pulse Ox 01/10/23 07:35 01/10/23 07:14 72 01/10/23 07:00 36.9 C 72 18 146/74 H 93 01/10/23 04:00 36.6 C 72 20 117/70 93 01/10/23 00:00 36.6 C 87 20 124/74 94 01/09/23 21:56 87 01/09/23 20:28 36.6 C 92 H 20 123/75 92 O2 Del Method 01/10/23 07:35 Room Air 01/10/23 07:14 01/10/23 07:00 Room Air 01/10/23 04:00 Room Air 01/10/23 00:00 Room Air 01/09/23 21:56 01/09/23 20:28 Room Air all noted and reviewed including below (3) Urinary tract infection Hematuria presence: without hematuria Urinary tract infection type: site unspecified Qualified Code(s): N39.0 - Urinary tract infection, site not sp ecified
[2023-01-10 08:00] LABS: INR 2.4 (0.9-1.1); Prothrombin Time 25.1 Seconds (9.0-12.0)
[2023-01-10] MEDS: amLODIPine BESYLATE 5 MG TAB PO SCH (08:23)
[2023-01-10] MEDS: ESCITALOPRAM OXALATE 20 MG TAB PO SCH (08:23)
[2023-01-10] MEDS: ACETAMINOPHEN 325 MG TAB PO SCH ×3 (08:24→20:25)
[2023-01-10] MEDS: CHOLECALCIFEROL 1,000 UNITS 25 MCG TAB PO SCH (08:24)
[2023-01-10] MEDS: cefTRIAXone SODIUM 2,000 MG in DEXTROSE 5% 50 ML IV SCH (08:25)
--- NOTE | 2023-01-10 13:52 | Ultrasound Report ---
ULTRASOUND BILATERAL LOWER EXTREMITY VENOUS CLINICAL HISTORY: Chronic deep venous thrombosis COMPARISON STUDY: Right lower extremity venous ultrasound dated 09/10/2018. Left lower extremity venou s ultrasound dated 03/20/2014. TECHNIQUE: Real-time, grayscale, and color Doppler sonography of the deep veins of the right and left lower extremity was performed from the inguinal crease to the calf. Compression and augmentation wer e utilized. FINDINGS: Right lower extremity: There is no sonographic evidence of deep venous thrombosis in the right lower extremity. The common femoral, superficial femoral, and popliteal veins are patent and normally compr essible. The greater saphenous vein and the profunda femoris vein at the junction with the common fem oral vein are clear. The visualized calf veins are patent. Left lower extremity: There is chronic appearing nonocclusive deep venous thrombosis in the left comm on femoral vein. This is also seen within the greater saphenous vein. Stranding within the left super ficial femoral and popliteal veins also likely represents trace chronic thrombus. No occlusive deep v enous thrombosis is seen. The visualized calf veins are patent. IMPRESSION: 1. Chronic appearing nonocclusive deep venous thrombosis in the left lower extremity as above. Correl ate clinically. 2. There is no sonographic evidence of deep venous thrombosis in the right lower extremity. ACT 112: Negative or not required by law. Electronically signed by: Reece Arita M.D. 01/10/2023 1:49 PM
[2023-01-10] MEDS: WARFARIN SOD 3 MG TAB PO SCH (15:44)
[2023-01-10] MEDS: ATORVASTATIN 10 MG TAB PO SCH (20:24)
[2023-01-11] MEDS ORDERED: MICONAZOLE NITRATE POWDER 85 GM EXT PRN (06:40)
[2023-01-11 07:17] LABS: INR 2.6 (0.9-1.1); Prothrombin Time 26.6 Seconds (9.0-12.0)
[2023-01-11] MEDS: ACETAMINOPHEN 325 MG TAB PO SCH ×3 (07:55→20:27)
[2023-01-11] MEDS: CHOLECALCIFEROL 1,000 UNITS 25 MCG TAB PO SCH (07:56)
[2023-01-11] MEDS: ESCITALOPRAM OXALATE 20 MG TAB PO SCH (07:56)
[2023-01-11] MEDS ORDERED: lisinopril 5 MG TAB PO SCH (09:00)
--- NOTE | 2023-01-11 09:45 | Hospitalist Progress Note ---
Date of Service January 11, 2023 Assessment & Plan (1) Altered mental status: (2) Metabolic encephalopathy: Plan: per Dr. Bowden's notes with addendum: Patient is 82-year-old female with PMH HTN, HLD, CKD III, history of DVT/PE, chronically anticoagulated on warfarin, history of vertebral artery dissection, history recurrent falls, history SDH secondary to fall in 03/2022 treated conservatively, h/o lumbar laminectomy, history T8 compression fracture, depression presented to ER for altered mental status Likely metabolic encephalopathy secondary to UTI CT head: No acute intracranial abnormality. Unchanged ventricular dilation which may be an ex vacuo basis. Normal pressure hydrocephalus could appear similarly. CT C-spine: No acute fractures or subluxations No significant electrolyte abnormality Treat UTI as below Hold gabapentin for now Monitor CBC, BMP in a.m. 01/10 mental status mostly back to baseline Urine culture: E Coli Blood cultures: negative x 2 days complete 5 day course of IV Ceftriaxone will need 2 more days of Cefuroxime to complete 1 week course 01/11 last day of antibiotic today (3) Urinary tract infection: Plan: per above (4) Fall: (5) Ambulatory dysfunction: Plan: Fall reported day before admission. History recurrent falls. History ambulatory dysfunction Fall precautions PT/OT eval Reported patient has been requiring 2 person assist for standing and ambulating with walker. Has needed more care than is available at current assisted living transition to [facility] (6) L5 vertebral fracture: Plan: CT abdomen pelvis: Acute nondisplaced fracture through the left inferior aspect of the L5 vertebral body. No additional acute fractures. Moderate T8 compression fracture, likely subacute. Chronic T9 and T10 compression fractures. Patient with chronic back pain. Orthospine consult is unavailable currently. 01/09 pain well controlled on Tylenol TID, wean off accordingly (7) History of compression fracture of spine: Plan: Chronic T8 compression fracture. Chronic T9 compression fracture Review CT from 03/31/2022 in epic: Acute T8 vertebral body compression fracture, chronic compression fracture at T9 Continue scheduled Tylenol, topical diclofenac as needed (8) History of dysphagia: Plan: Staff from assisted living report patient had been having noted coughing while eating meals Aspiration precautions Speech therapy evaluation: Regular diet (9) History of pulmonary embolism: Plan: History PE, chronic DVT Chronically anticoagulated on warfarin INR: 2.6 continue coumadin Doppler US of legs: negative for DVT (10) HTN (hypertension): Plan: d/c Amlodipine- may be causing leg edema Lisinopril started monitor (11) HLD (hyperlipidemia): Plan: Continue atorvastatin (12) Depression: Plan: Continue citalopram may need to decrease to 10mg to prevent somnolonce (13) Neuropathy: Plan: Currently holding gabapentin denies leg pain DVT Prophylaxis coumadin Full Code as per discussion with patient and patient's Follows with Gurjit Diaz PA-C for routine care Admission and Anticipated Discharge Date Admission Date: January 06, 2023 Subjective ff up for UTI, etc seen resting in bed, comfortable states she is sleepy denies abdominal pain, leg pain, fever did not have dinner last night no other symptoms Review of Systems Review of Systems: all noted and negative except for above Physical Exam Physical Exam: General- oriented x 2, not in distress, speaks in sentences with no effort or accessory muscle use Eyes- anicteric Neck- no JVD Lungs- clear breath sounds bilaterally, no rales/wheezes Heart- normal rate, regular rhythm; no murmurs Abdomen- normal bowel sounds, nondistended, soft, nontender Extremities- trace pretibial edema, no calf tenderness Neuro- alert, oriented x 2; no gross focal neurologic deficits Skin- warm & dry Results & Data Results & Data Vital Signs (Past 12 Hours) Vital Signs Temp Pulse Pulse Resp BP Pulse Ox O2 Del Method 01/11/23 08:26 62 01/11/23 07:22 36.5 C 82 18 132/67 92 Room Air 01/11/23 07:11 Room Air 01/11/23 04:37 36.6 C 67 18 125/72 93 Room Air 01/10/23 23:55 36.4 C L 65 18 114/64 92 Room Air 01/10/23 23:30 67 all noted and reviewed including below (3) Urinary tract infection Hematuria presence: without hematuria Urinary tract infection type: site unspecified Qualified Code(s): N39.0 - Urinary tract infection, site not specified
[2023-01-11] MEDS ORDERED: lisinopril 5 MG TAB PO ONE (14:10)
[2023-01-11] MEDS: WARFARIN SOD 3 MG TAB PO SCH (17:06)
[2023-01-11] MEDS: ATORVASTATIN 10 MG TAB PO SCH (20:28)
[2023-01-12] MEDS: ACETAMINOPHEN 325 MG TAB PO SCH ×2 (07:53→12:47)
[2023-01-12] MEDS: CHOLECALCIFEROL 1,000 UNITS 25 MCG TAB PO SCH (07:54)
[2023-01-12 08:26] LABS: Est GFR (African American) 106.6 ml/min
[2023-01-12 08:30] LABS: INR 2.7 (0.9-1.1); Prothrombin Time 27.5 Seconds (9.0-12.0)
[2023-01-12] MEDS ORDERED: ESCITALOPRAM OXALATE 10 MG TAB PO SCH (09:00)
[2023-01-12] MEDS ORDERED: lisinopril 10 MG TAB PO SCH (09:00)
--- NOTE | 2023-01-12 09:47 | Hospitalist Progress Note ---
Date of Service January 12, 2023 Assessment & Plan (1) Altered mental status: (2) Metabolic encephalopathy: Plan: per Dr. Bowden's notes with addendum: Patient is 82-year-old female with PMH HTN, HLD, CKD III, history of DVT/PE, chronically anticoagulated on warfarin, history of vertebral artery dissection, history recurrent falls, history SDH secondary to fall in 03/2022 treated conservatively, h/o lumbar laminectomy, history T8 compression fracture, depression presented to ER for altered mental status Likely metabolic encephalopathy secondary to UTI CT head: No acute intracranial abnormality. Unchanged ventricular dilation which may be an ex vacuo basis. Normal pressure hydrocephalus could appear similarly. CT C-spine: No acute fractures or subluxations No significant electrolyte abnormality Urine culture: E Coli Blood cultures: negative Patient completed 7-day course of IV ceftriaxone Mental status mostly back to baseline per family Noted to be lethargic most of the time at [facility] facility Recommend to discontinue gabapentin, decrease Lexapro to 10 mg daily Monitor closely (3) Urinary tract infection: Plan: per above (4) Fall: (5) Ambulatory dysfunction: Plan: Fall reported day before admission. History recurrent falls. History ambulatory dysfunction Fall precautions PT/OT eval Reported patient has been requiring 2 person assist for standing and ambulating with walker. Has needed more care than is available at current assisted living transition to [facility] (6) L5 vertebral fracture: Plan: CT abdomen pelvis: Acute nondisplaced fracture through the left inferior aspect of the L5 vertebral body. No additional acute fractures. Moderate T8 compression fracture, likely subacute. Chronic T9 and T10 compression fractures. Patient with chronic back pain. Orthospine consult is unavailable currently. pain well controlled on Tylenol TID, will change to as needed (7) History of compression fracture of spine: Plan: Chronic T8 compression fracture. Chronic T9 compression fracture Review CT from 03/31/2022 in epic: Acute T8 vertebral body compression fracture, chronic compression fracture at T9 Tylenol, topical diclofenac as needed (8) History of dysphagia: Plan: Staff from assisted living report patient had been having noted coughing while eating meals Aspiration precautions Speech therapy evaluation: Regular diet (9) History of pulmonary embolism: Plan: History PE, chronic DVT Chronically anticoagulated on warfarin INR: 2.7 continue coumadin 3 mg daily Repeat INR in 1 to 2 days Monitor INR closely Doppler US of legs: negative for DVT (10) HTN (hypertension): Plan: d/c Amlodipine- may be causing leg edema Lisinopril 5 mg p.o. daily started monitor (11) HLD (hyperlipidemia): Plan: Continue atorvastatin (12) Depression: Plan: Escitalopram decreased to 10 mg daily to prevent somnolence (13) Neuropathy: Plan: Currently holding gabapentin denies leg pain DVT Prophylaxis coumadin Disposition Return to [facility] today plan of care discussed with patient's in detail and at length all questions answered they are understanding, agreeable, comfortable with the plan of care Admission and Anticipated Discharge Date Admission Date: January 06, 2023 Subjective ff up for UTI, etc seen resting in bed, comfortable states she feels fine overall denies pain no other symptoms states she is ready for discharge Review of Systems Review of Systems: all noted and negative except for above Physical Exam Physical Exam: General- oriented x 2, not in distress, speaks in sentences with no effort or accessory muscle use Eyes- anicteric Neck- no JVD Lungs- clear breath sounds bilaterally, no rales/wheezes Heart- normal rate, regular rhythm; no murmurs Abdomen- normal bowel sounds, nondistended, soft, nontender Extremities- trace pretibial edema, no calf tenderness Neuro- alert, oriented x 2; no gross focal neurologic deficits Skin- warm & dry Results & Data Results & Data Vital Signs (Past 12 Hours) Vital Signs Temp Pulse Pulse Resp BP BP Pulse Ox 01/12/23 08:47 01/12/23 08:35 62 01/12/23 08:07 36.7 C 65 17 132/75 94 01/12/23 03:52 36.7 C 68 18 103/58 L 93 01/12/23 00:15 65 01/11/23 23:52 36.7 C 83 20 109/66 94 O2 Del Method 01/12/23 08:47 Room Air 01/12/23 08:35 01/12/23 08:07 Room Air 01/12/23 03:52 Room Air 01/12/23 00:15 01/11/23 23:52 Room Air all noted and reviewed including below (3) Urinary tract infection Hematuria presence: without hematuria Urinary tract infection type: site unspecified Qualified Code(s): N39.0 - Urinary tract infection, site not specified
--- NOTE | 2023-01-12 10:10 | Discharge Summary ---
Discharge Summary Date of Service January 12, 2023 Notes For Next Care Provider Medication Changes From Visit Gabapentin discontinued. Escitalopram decreased to 10 mg daily. Coumadin decreased to 3 mg p.o. daily. Amlodipine changed to lisinopril 5 mg p.o. daily. Probiotics daily. Admission HPI Per Admitting Provider Patient is 82-year-old female with PMH HTN, HLD, CKD III, history of DVT/PE, chronically anticoagulated on warfarin, history of vertebral artery dissection, history recurrent falls, history SDH secondary to fall in 03/2022 treated conservatively, h/o lumbar laminectomy, history T8 compression fracture, depression presented to ER for altered mental status. History obtained from chart review, patient's who is at bedside, limited information obtained from patient secondary to cognitive status. states patient had a fall last evening. states patient called him to tell him she fell yesterday. She denied any injury or pain after fall. Reports chronic back pain. Patient denies any increased pain. States she was doing well yesterday morning and completed PT. Patient is unable to tell me any information about that fall. Unsure if had dizziness, CP, SOB or other symptoms prior to fall. states today he was called by facility to inform him that patient was not talking and was not following commands. states he went to see her this morning and she would talk but only was saying one-word answers and seemed very fatigued. Currently patient is complaining of feeling tired and states she is having trouble remembering. She is currently oriented to person only. Is slow to answer questions. reports at baseline patient uses wheelchair and needs assistance with ambulating with walker. Reported functional decline. H istory of recurrent falls. Patient's states is currently living in assisted living at [facility]. States that he has been informed patient is requiring too much care for assisted living now requiring 2 person assist with standing/ambulating on regular basis and they are suggesting upgrading to skilled facility. Patient's states has been in and out of skilled facility then to assisted living multiple times over the past 2 years. Denies fever/chills. Patient is unable to tell me if she has any dysuria, or urinary frequency, hematuria. She reports chronic back pain and chronic bilateral hip pain. Reports chronic BLE edema for past 2 years since she has been in nursing facility and not moving much. Patient denies N/V/D/C, LOPEZ, dizziness, neck pain, CP, SOB, palpitations, cough, choking, abdominal pain, rashes Principal Dx & Hospital Course #1 = Principal Diagnosis (1) Altered mental status: (2) Metabolic encephalopathy: per Dr. Bowden's notes with addendum: Patient is 82-year-old female with PMH HTN, HLD, CKD III, history of DVT/PE, chronically anticoagulated on warfarin, history of vertebral artery dissection, history recurrent falls, history SDH secondary to fall in 03/2022 treated conservatively, h/o lumbar laminectomy, history T8 compression fracture, depression presented to ER for altered mental status Likely metabolic encephalopathy secondary to UTI CT head: No acute intracranial abnormality. Unchanged ventricular dilation which may be an ex vacuo basis. Normal pressure hydrocephalus could appear similarly. CT C-spine: No acute fractures or subluxations No significant electrolyte abnormality Urine culture: E Coli Blood cultures: negative Patient completed 7-day course of IV ceftriaxone Mental status mostly back to baseline per family Noted to be lethargic most of the time at snf facility Recommend to discontinue gabapentin, decrease Lexapro to 10 mg daily Monitor closely (3) Urinary tract infection: per above (4) Fall: (5) Ambulatory dysfunction: Fall reported day before admission. History recurrent falls. History ambulatory dysfunction Fall precautions PT/OT eval Reported patient has been requiring 2 person assist for standing and ambulating with walker. Has needed more care than is available at current assisted living transition to [facility] (6) L5 vertebral fracture: CT abdomen pelvis: Acute nondisplaced fracture through the left inferior aspect of the L5 vertebral body. No additional acute fractures. Moderate T8 compression fracture, likely subacute. Chronic T9 and T10 compression fractures. Patient with chronic back pain. Orthospine consult is unavailable currently. pain well controlled on Tylenol TID, will change to as needed (7) History of compression fracture of spine: Chronic T8 compression fracture. Chronic T9 compression fracture Review CT from 03/31/20[facility] in [facility]: Acute T8 vertebral body compression fracture, chronic compression fracture at T9 Tylenol, topical diclofenac as needed (8) History of dysphagia: Staff from assisted living report patient had been having noted coughing while eating meals Aspiration precautions Speech therapy evaluation: Regular diet (9) History of pulmonary embolism: History PE, chronic DVT Chronically anticoagulated on warfarin INR: 2.7 continue coumadin 3 mg daily Repeat INR in 1 to 2 days Monitor INR closely Doppler US of legs: negative for DVT (10) HTN (hypertension): d/c Amlodipine- may be causing leg edema Lisinopril 5 mg p.o. daily started monitor (11) HLD (hyperlipidemia): Continue atorvastatin (12) Depression: Escitalopram decreased to 10 mg daily to prevent somnolence (13) Neuropathy: Currently holding gabapentin denies leg pain DVT Prophylaxis coumadin Disposition Return to [facility] today plan of care discussed with patient's in detail and at length all questions answered they are understanding, agreeable, comfortable with the plan of care Discharge Exam General- oriented x 2, not in distress, speaks in sentences with no effort or accessory muscle use Eyes- anicteric Neck- no JVD Lungs- clear breath sounds bilaterally, no rales/wheezes Heart- normal rate, regular rhythm; no murmurs Abdomen- normal bowel sounds, nondistended, soft, nontender Extremities- trace pretibial edema, no calf tenderness Neuro- alert, oriented x 2; no gross focal neurologic deficits Skin- warm & dry Updated Medication List Medication Instructions Recorded Confirmed Type atorvastatin 10 mg tablet (Lipitor) 10 mg PO HS 03/11/19 01/06/23 History acetaminophen 325 mg tablet 975 mg PO TID 3 GRAMS/24 HOURS 03/30/22 01/06/23 History (Tylenol) cholecalciferol (vitamin D3) 25 25 mcg PO QAM 03/30/22 01/06/23 History mcg (1,000 unit) capsule (Vitamin D3) diclofenac sodium 1 % topical gel 4 g topical Q6 PRN LEFT HIP PAIN 03/30/22 01/06/23 History alendronate 70 mg tablet (Fosamax) 70 mg PO WK 01/06/23 01/06/23 History carboxymethylcellulose sodium 0.5 1 drp ophthalmic (eye) .EVERY 24 01/06/23 01/06/23 History % eye drops (Refresh Tears) HOURS PRN Dry Eyes diclofenac sodium 1 % topical gel 4 g topical Q6 PRN spine pain 01/06/23 01/06/23 History vit C 250 mg-vit E 90 mg-zinc 40 1 tab PO AMHS 01/06/23 01/06/23 History mg-copper 1 [id number] capsule (PreserVision AREDS-2) Lactobacillus acidoph-L.bulgaricus 1 tab PO DAILY 30 days #30 tabs 01/10/23 Rx 1 million cell tablet (Floranex) warfarin 3 mg tablet 3 mg PO DAILY@1600 30 days #30 tabs 01/10/23 Rx escitalopram oxalate 10 mg tablet 10 mg PO QAM 30 days #30 tabs 01/12/23 Rx lisinopril 5 mg tablet 5 mg PO DAILY #30 tabs 01/12/23 Rx Hospital Stay Data Consultations 01/06/23 16:07 ED Decision to Admit Stat Diagnostic Imagining Performed 01/06/23 14:03 CT abd pelvis wo con Stat COMPARISON STUDY: Pelvis radiograph March 11, 2019. TECHNIQUE: Axial images of the abdomen and pelvis were obtained without IV contrast. Images were reviewed in the axial, sagittal, and coronal planes. Automated exposure control was utilized for the study. A dose lowering technique was utilized adhering to the principles of ALARA. FINDINGS: Subpleural opacities within the lower lungs favor atelectasis. No hemoperitoneum or pneumoperitoneum is present. There is a small hiatal hernia. Evaluation of the solid abdominal viscera is suboptimal on this unenhanced exam but there is no evidence for traumatic injury to the liver, spleen, adrenal glands, kidneys or pancreas. A water attenuation 8.4 cm left renal lesion favors a cyst. Low-attenuation lesion within the lower pole of the right kidney also favors a cyst. There is a 5 mm calcification within the inferior left renal sinus. There are no ureteral calculi. There are hypodense foci within the renal sinuses. These probably reflect parapelvic cysts within correlating with MRI of the lumbar spine of May 08, 2015. There is no evidence for a bowel obstruction. Colonic diverticulosis is present. No evidence for acute diverticulitis. No acute proximal femoral fracture is noted. Note is made of an acute nondisplaced fracture through the left inferior aspect of the L5 vertebral body shown on axial image 238 of [id number]. This is new since the lumbar spine CT March 30, 2022. This extends to adjacent osteophytes. Postoperative findings within the lumbar spine are present. No additional acute fractures are present. A moderate T8 compression fracture is likely subacute to chronic. Mild T9 and T10 compression fractures appear chronic. Mild stranding within the right buttock is noted. Cholelithiasis. No evidence for acute cholecystitis. IMPRESSION: 1. No hemoperitoneum or pneumoperitoneum. No evidence for traumatic injury to the solid abdominal viscera on unenhanced exam. 2. Acute nondisplaced fracture through the left inferior aspect of the L5 vertebral body. No additional acute fractures. 3. Moderate T8 compression fracture, likely subacute. Chronic T9 and T10 compression fractures. 4. Suspected small right buttock contusion. 5. Cholelithiasis. No evidence for acute cholecystitis. 6. Colonic diverticulosis. No evidence for acute diverticulitis. ACT 112: Negative or not required by law. CT cervical spine wo con Stat Comparison: Comparison is made to CT cervical spine 03/30/2022 FINDINGS: No acute fractures or subluxations are identified. Degenerative changes are seen in the visualized spine. The alignment is normal. Biapical scarring is seen. IMPRESSION: Degenerative changes without evidence of acute bony injury. ACT 112: Negative or not required by law. CT head/brain wo con Stat FINDINGS: No acute intracranial hemorrhage, midline shift, intracranial mass, acute territorial ischemia or abnormal extra-axial collection. Involutional changes with chronic microvascular ischemic disease. Unchanged ventriculomegaly. The calvarium is intact. Mastoid air cells are clear. Severe near complete opacification of the left sphenoid sinus. Prior partial ethmoidectomy. Elongation of the bilateral globes. Prior bilateral lens repair. IMPRESSION: 1. No acute intracranial abnormality. 2. Unchanged ventricular dilation which may be an ex vacuo basis. Normal pressure hydrocephalus could appear similarly. ACT 112: Negative or not required by law. 01/10/23 10:45 US venous doppler LE BI Urgent FINDINGS: Right lower extremity: There is no sonographic evidence of deep venous thrombosis in the right lower extremity. The common femoral, superficial femoral, and popliteal veins are patent and normally compressible. The greater saphenous vein and the profunda femoris vein at the junction with the common femoral vein are clear. The visualized calf veins are patent. Left lower extremity: There is chronic appearing nonocclusive deep venous thrombosis in the left common femoral vein. This is also seen within the greater saphenous vein. Stranding within the left superficial femoral and popliteal veins also likely represents trace chronic thrombus. No occlusive deep venous thrombosis is seen. The visualized calf veins are patent. IMPRESSION: 1. Chronic appearing nonocclusive deep venous thrombosis in the left lower extremity as above. Correlate clinically. 2. There is no sonographic evidence of deep venous thrombosis in the right lower extremity. ACT 112: Negative or not required by law. Pending Results Patient Have Any Pending Studies at Discharge: Yes Discharge Instructions Given to Patient (Per Discharging Provider) Please ensure patient has prompt hygiene care after bowel movement to prevent recurrent UTIs. Repeat INR in 2 to 3 days. Adjust Coumadin as needed. Please refer to accompanying hospital discharge summary for further details. Total Time Total Time Spent Total Time Spent (In Minutes): > 30 minutes
[2023-01-12] MEDS ORDERED: lisinopril 5 MG TAB PO ONE (10:15)
== END 2023-01-12 13:32 | DRG 689 ==
LOC: ED 13:51 → SUATTDRO 16:40 → 2W 16:40

== ENCOUNTER 2025-06-12 09:45 | Inpatient (IN) ==
--- NOTE | 2025-06-12 10:16 | Emergency Department Note ---
Impression & Plan Weakness, AMS (altered mental status), Acute UTI, Acute hypernatremia ED Provider Note Provider: Abhinav Holman MD CHIEF COMPLAINT: Altered, decreased intake with abnormal sodium HISTORY OF PRESENT ILLNESS: Patient is a 85-year-old female history of vascular dementia, gastroparesis, PE/DVT on warfarin, and history of recurrent UTIs presenting via ambulance from her facility. Patient over the past approximately 5 days some increasing fatigue and they report that she is not her normal self today. Normally answer some questions which she is not always doing today. They are concerned about decreased appetite the facility. There has been exposures to COVID there but reportedly has tested negative for this. Is on antibiotic treatment for UTI with Keflex for several days and does have a history of this. Does not have an indwelling Hdz. Patient herself is able to shake her head no that she does not have pain was unable to ride any significant other history here. Does not appear an extremis. Blood work reported per EMS completed this morning and review of this indicates the patient had significant hypernatremia of 156. She did receive a liter of IV fluid yesterday. No falls or trauma reported. PAST MEDICAL HISTORY: As noted above MEDICATIONS: Reviewed medication list from the facility SOCIAL HISTORY: Resides at [facility] PHYSICAL EXAM: GENERAL: alert a to verbal stimuli but unable to speak to me words. She is not in acute distress. Occasionally shakes her head yes or no. Head: normocephalic and atraumatic EYES: No injection, discharge or icterus. PERRL NECK: Trachea midline. Supple. ENT: Mucous membranes pink but appears somewhat dry.. Pharynx without erythema or exudate. LUNGS: Airway patent. No retractions. Breath sounds clear with good air entry bilaterally. HEART: Regular rate and rhythm. No chest wall tenderness ABDOMEN: Soft and non-tender, without guarding or rebound. No masses appreciable. SKIN: Acyanotic, warm, dry, without rashes EXTREMITIES: Without swelling, tenderness or deformity NEUROLOGICAL: Withdraws to pain in all 4 extremities but not following commands. No facial droop appreciable but nonverbal at this time. EK bpm normal sinus rhythm. Left axis. No PVC or PAC. No acute ST segment elevation or depression with nonspecific inferior anterior T wave changes. QTc 442. CONTINUOUS CARDIAC MONITORING: was ordered and showed a heart rate of 50s to 80s bpm in normal sinus rhythm to sinus bradycardia Patient's laboratory studies and imaging reviewed. Differential includes Infection, dehydration, metabolic abnormality, hypo/hyperglycemia, electrolyte disturbance, anemia, hypoxia, cardiac sources, intracerebral event, toxicologic, neurologic, as well as other pathologies. IMPRESSION/MEDICAL DECISION MAKING: Patient with some decreased mentation. On antibiotic therapy reportedly for possible UTI and exposures to COVID. Borderline fever here. Cultures lactate were ordered. Given IV fluid as outpatient labs showed evidence of significant hyponatremia and this can be attributing as well. CT of the head obtained given anticoagulates does look for acute intra-abdominal pathology such as bleed that could explain her change in mentation. Benign abdomen here. Chest x-ray obtained but not in any significant respiratory distress. Negative respiratory viral panel Blood work here without significant leukocytosis or anemia. Lactate not elevated. Urinalysis is grossly positive for signs of infection. Reviewed prior microbiology. Covered apparently with a dose of ceftriaxone here. Hdz catheter is placed for drainage. Chemistries here confirms sodium of 155. Creatinine 0.46 not elevated. No transaminitis or elevated CK or troponin here. Procalcitonin not severely elevated. CT of the head per radiology without acute new intra cranial abnormality. CT of the abdomen pelvis per radiology without acute intra-abdominal pathology beyond possible bladder inflammation. Again patient covered with ceftriaxone and given IV fluids and will bring in for further care here. updated at bedside. Hospitalist team was consulted. DIAGNOSIS: Weakness, altered mental status, hypernatremia, UTI DISPOSITION: Hospitalist will evaluate Past Med/Surg History Problem List Acute hypernatremia (Acute) Acute UTI (Acute) AMS (altered mental status) (Acute) Weakness (Acute) Dehydration Acute hypernatremia Acute UTI Recurrent UTI Urinary retention Ambulatory dysfunction Neuropathy Depression History of pulmonary embolism HTN (hypertension) History of compression fracture of spine History of dysphagia L5 vertebral fracture Fall Metabolic encephalopathy Altered mental status Generalized weakness (Acute) Acute alteration in mental status (Acute) Compression fx, lumbar spine (Acute) Compression fx, thoracic spine (Acute) Urinary tract infection (Acute) Right knee pain (Chronic) Left knee pain (Chronic) Lumbar facet joint syndrome (Chronic) DVT (deep venous thrombosis) (Chronic) Pulmonary embolism (Chronic) Osteoporosis (Chronic) HLD (hyperlipidemia) (Chronic) Osteoarthritis (Chronic) Gastroparesis (Chronic) Macular degeneration (Chronic) Peripheral neuropathy (Chronic) History of appendectomy (Chronic) H/O sinus surgery (Chronic) S/P lumbar fusion (Chronic) Surgical History History of cataract surgery Family History Other Cancer Social History Smoking Status: Never smoker Second Hand Exposure: No; Hx Alcohol Use: No Hx Substance Use: No Preferred Language: Armenian Communication Ability: Effective Med Peds Required: No Beliefs That Will Affect Care: None marital status: Current Living Situation: Personal Care Facility current occupational status: retired Feels Safe at Home: Declines to Answer Assistive Devices: Wheelchair Allergies Allergies Allergy/AdvReac Type Severity Reaction Status Date / Time Penicillins Allergy Intermediate hives Verified 01/06/23 16:21 pollen extracts Allergy Intermediate sinus Verified 01/06/23 16:21 issues Home Meds Home Medications Medication Instructions Recorded Confirmed atorvastatin 10 mg tablet (Lipitor) 10 mg PO HS 03/11/19 06/12/25 acetaminophen 325 mg tablet 975 mg PO TID 3 GRAMS/24 HOURS 03/30/22 06/12/25 (Tylenol) cholecalciferol (vitamin D3) 25 25 mcg PO QAM 03/30/22 06/12/25 mcg (1,000 unit) capsule (Vitamin D3) diclofenac sodium 1 % topical gel 4 g topical Q6 PRN LEFT HIP PAIN 03/30/22 06/12/25 alendronate 70 mg tablet (Fosamax) 70 mg PO WK 01/06/23 06/12/25 carboxymethylcellulose sodium 0.5 1 drp ophthalmic (eye) .EVERY 24 01/06/23 06/12/25 % eye drops (Refresh Tears) HOURS PRN Dry Eyes diclofenac sodium 1 % topical gel 4 g topical Q6 PRN spine pain 01/06/23 06/12/25 vit C 250 mg-vit E 90 mg-zinc 40 1 tab PO AMHS 01/06/23 06/12/25 mg-copper 1 [id number] capsule (PreserVision AREDS-2) Lactobacillus acidoph-L.bulgaricus 1 tab PO DAILY 06/12/25 06/12/25 1 million cell tablet (Floranex) acetaminophen 325 mg tablet 650 mg PO Q4H PRN FEVER >100 06/12/25 06/12/25 acetaminophen 325 mg tablet 650 mg PO Q4H PRN Pain (Scale 06/12/25 06/12/25 Score 1-3) acetaminophen 650 mg rectal 650 mg NV Q4H PRN Fever 06/12/25 06/12/25 suppository carbidopa 25 mg-levodopa 100 mg 1 tab PO TID 06/12/25 06/12/25 tablet cephalexin 500 mg capsule 500 mg PO TID 06/12/25 06/12/25 cyanocobalamin (vitamin B-12) 1,000 mcg PO DAILY 06/12/25 06/12/25 1,000 mcg tablet escitalopram oxalate 20 mg tablet 20 mg PO QAM 06/12/25 06/12/25 gabapentin 400 mg capsule 400 mg PO TID 06/12/25 06/12/25 methylphenidate HCl 20 mg tablet 20 mg PO QAM 06/12/25 06/12/25 warfarin 3 mg tablet 1.5 mg PO DIRECTED 06/12/25 06/12/25 warfarin 3 mg tablet 3 mg PO SUMOTUTHFRSA 06/12/25 06/12/25 Results & Data (ED) Vital Signs Vital Signs - 24 hr 06/12/25 09:36 06/12/25 09:59 06/12/25 11:39 Temperature 37.8 C H Temperature Source Rectal Pulse Rate 64 63 Pulse Rate [Apical] 102 H Pulse Rhythm [Apical] Pulse Strength [Apical] Respiratory Rate 24 15 16 Respiratory Effort / Characteristics Non-Labored Spontaneous Respiratory Depth Normal Normal Respiratory Pattern Regular Blood Pressure 178/82 H Blood Pressure [Right Arm] 164/89 H Blood Pressure Mean 114 Blood Pressure Mean [Right Arm] 114 Blood Pressure Position Lying Blood Pressure Position [Right Arm] Lying Pulse Oximetry 94 94 97 Oxygen Delivery Method Room Air Room Air Room Air Sepsis Recent Fever Within 48 Hours Yes Sepsis New/Unexplained Change in Mental Status Yes Sepsis Action Taken by Nursing Physician Notified 06/12/25 11:42 06/12/25 13:00 06/12/25 14:51 Temperature Temperature Source Pulse Rate 93 H Pulse Rate [Apical] 62 58 L Pulse Rhythm [Apical] Regular Regular Pulse Strength [Apical] Normal Normal Respiratory Rate 15 15 Respiratory Effort / Characteristics Non-Labored Spontaneous Non-Labored Spontaneous Respiratory Depth Respiratory Pattern Regular Blood Pressure Blood Pressure [Right Arm] 158/87 H 157/72 H Blood Pressure Mean Blood Pressure Mean [Right Arm] 110 100 Blood Pressure Position Blood Pressure Position [Right Arm] Lying Pulse Oximetry 97 95 Oxygen Delivery Method Room Air Room Air Sepsis Recent Fever Within 48 Hours Sepsis New/Unexplained Change in Mental Status Sepsis Action Taken by Nursing Laboratory Data 06/12/25 10:29 06/12/25 10:29 Lab Results 06/12/25 06/12/25 Range/Units 10:05 10:29 WBC 9.92 (4.8-10.8) K/ul RBC 4.61 (4.20-5.40) M/uL Hgb 14.4 (12.0-16.0) g/dL Hct 45.8 (37.0-47.0) % MCV 99.3 (80.0-100.0) fL MCH 31.2 (25.0-34.0) pg MCHC 31.4 L (32.0-36.0) g/dL RDW Std Deviation 58.6 H (36.4-46.3) fL RDW Coeff of Joselito 15.9 H (11.5-14.5) % Plt Count 199 (130-400) K/uL MPV 10.6 (9.4-12.4) fL Immature Gran % (Auto) 0.6 % Neut % (Auto) 81.5 % Lymph % (Auto) 12.5 % Anderson % (Auto) 5.1 % Eos % (Auto) 0.1 % Baso % (Auto) 0.2 % Neut # (Auto) 8.08 H (1.40-6.50) K/uL Lymph # (Auto) 1.24 (1.20-3.40) K/uL Anderson # (Auto) 0.51 (0.11-0.59) K/uL Eos # (Auto) 0.01 (0.00-0.50) K/uL Baso # (Auto) 0.02 (0.00-0.20) K/uL Immature Gran # (Auto) 0.06 (0.01-0.20) K/uL PT 72.9 H (9.0-12.0) Seconds INR 7.7 H* (0.9-1.1) APTT 45 H (21-31) Seconds PTT Ratio 1.7 Sodium 155 H (136-145) mmol/L Potassium 3.6 (3.5-5.1) mmol/L Chloride 117 H (98-107) mmol/L Carbon Dioxide 29 (21-32) mmol/L Anion Gap 9 (3-11) BUN 22 (6-23) mg/dl Creatinine 0.46 L (0.6-1.2) mg/dl Est Cr Clr Drug Dosing 93.7 ml/min eGFR 93.14 BUN/Creatinine Ratio 47.8 H (10-20) Glucose 137 H (70-99(Fasting)) mg/dl Lactate 1.6 (0.4-2.0) mmol/L Calcium 9.5 (8.6-10.3) mg/dl Magnesium 2.6 H (1.7-2.4) mg/dl Total Bilirubin 0.7 (0.2-1.0) mg/dl AST 15 (13-39) U/L ALT 12 (7-52) U/L Alkaline Phosphatase 90 (34-104) U/L Total Creatine Kinase 12 L (26-192) U/L Troponin I High Sens 11.0 (0-14) pg/ml Total Protein 7.2 (6.0-8.3) gm/dl Albumin 4.2 (3.4-5.0) gm/dl Globulin 3.0 (2.5-4.0) gm/dl Albumin/Globulin Ratio 1.4 (0.9-2) Procalcitonin 0.11 (0-0.5) ng/ml TSH 1.288 (0.300-4.500) uIu/ml Urine Color Dark Yellow Urine Appearance Cloudy A (Clear) Urine pH 5.5 (4.5-7.5) Ur Specific [place] 1.024 (1.000-1.030) Urine Protein 2+ H (Negative) Urine Glucose (UA) Negative (Negative) Urine Ketones 1+ H (Negative) Urine Blood 2+ H (Negative) Urine Nitrite Positive A (Negative) Urine Bilirubin Negative (Negative) Urine Urobilinogen Negative (Negative) Ur Leukocyte Esterase 3+ H (Negative) Urine WBC (Auto) >50 H (0-5) /hpf Urine RBC (Auto) 11-20 H (0-2) /hpf U Hyaline Cast (Auto) 3-5 H (0-2) /lpf U Epithel Cells (Auto) 3-5 H (0-2) /hpf Urine Bacteria (Auto) 2+ H (None Seen) Urine Comment Adenovirus (PCR) Not Detected (NotDetected) B. pertussis DNA (PCR) Not Detected (NotDetected) B.parapertussis DNA PCR Not Detected (NotDetected) C. pneumoniae DNA (PCR) Not Detected (NotDetected) Coronavirus OC43 (PCR) Not Detected (NotDetected) Coronavirus HKU1 (PCR) Not Detected (NotDetected) Coronavirus 229E (PCR) Not Detected (NotDetected) SARS-CoV-2 (PCR) Not Detected (NotDetected) Coronavirus NL63 (PCR) Not Detected (NotDetected) Human Metapneumovir PCR Not Detected (NotDetected) Influenza Type A (PCR) Not Detected (NotDetected) Influenza Type B (PCR) Not Detected (NotDetected) M. pneumoniae (PCR) Not Detected (NotDetected) Parainfluenza 1 (PCR) Not Detected (NotDetected) Parainfluenza 2 (PCR) Not Detected (NotDetected) Parainfluenza 3 (PCR) Not Detected (NotDetected) Parainfluenza 4 (PCR) Not Detected (NotDetected) RSV (PCR) Not Detected (NotDetected) Entero/Rhino (PCR) Not Detected (NotDetected) Administered Medications Sodium Chloride (1/2 Nss) 1,000 mls @ 80 mls/hr IV .[id number] ARASELI Stop: 06/12/25 19:29 Last Admin: 06/12/25 13:25 Dose: 80 mls/hr Documented By: tray Discontinued Medications Sodium Chloride (Nss) 1,000 mls @ 999 mls/hr IV .[id number] ARASELI Stop: 06/12/25 11:00 Last Infusion: 06/12/25 12:40 Dose: Infused Documented By: tray Admin: 06/12/25 11:26 Dose: 999 mls/hr Documented By: tary Ceftriaxone Sodium (Rocephin) 2,000 mg in 50 mls @ 100 mls/hr IV NOW STA Stop: 06/12/25 11:28 Last Infusion: 06/12/25 11:56 Dose: Infused Documented By: tray Admin: 06/12/25 11:26 Dose: 100 mls/hr Documented By: tray Ioversol (Optiray 320 100ml) 93 ml IV ONCE ONE Stop: 06/12/25 11:13 Last Admin: 06/12/25 11:13 Dose: 93 ml Documented By: CIERA Imaging Data Radiologist's Impression: Chest X-Ray 06/12/25 09:59 XR chest 1V portable CLINICAL HISTORY: weakness COMPARISON STUDY: Chest CT March 20, 2014. Chest radiograph January 06, 2023. FINDINGS: Mild elevation of the right hemidiaphragm has slightly increased. No pneumothorax or pleural effusion is present. Linear left midlung density represents scarring. Cardiomegaly is unchanged. No evidence for pulmonary edema. There is no consolidation to suggest pneumonia. IMPRESSION: No acute cardiopulmonary findings. Stable cardiomegaly. ACT 112: Negative or not required by law. Electronically signed by: Aba Oliveira M.D. 06/12/2025 10:[address] 06/12/25 10:00 CT head/brain wo con CLINICAL HISTORY: 85 years-old Female with ams, weak. Acutely altered mental status with weakness TECHNIQUE: Multiple axial CT images of the head were obtained without contrast. A dose lowering technique was utilized adhering to the principles of ALARA. CT DOSE: 2021.28 mGy.cm COMPARISON: 01/06/2023, 03/30/2022 FINDINGS: No acute intracranial hemorrhage, midline shift, intracranial mass, acute territorial ischemia or abnormal extra-axial collection. Involutional changes with chronic microvascular ischemic disease. Unchanged ventriculomegaly. The calvarium is intact. Mastoid air cells are clear. Severe near complete opacification of the left sphenoid sinus, unchanged. Prior partial ethmoidectomy. Elongation of the bilateral globes is a chronic finding. Prior bilateral lens repair. IMPRESSION: 1. No acute intracranial abnormality. 2. Unchanged ventricular dilation which is likely on an ex vacuo basis. Normal pressure hydrocephalus could appear similarly. ACT 112: Negative or not required by law. The above report was generated using voice recognition software. It may contain grammatical, syntax or spelling errors. Electronically signed by: Maxim Sales M.D. 06/12/2025 12:01 PM Abdomen/Pelvis CT 06/12/25 10:59 CT SCAN OF THE ABDOMEN AND PELVIS WITH IV CONTRAST CLINICAL HISTORY: Altered mental status. Decreased p.o. intake. COMPARISON STUDY: CT of the abdomen and pelvis January 06, 2023. TECHNIQUE: Following the IV administration of 93 cc of Optiray 320, CT scan of the abdomen and pelvis is performed from the lung bases to the proximal femora. Images are reviewed in the axial, sagittal, and coronal planes. IV contrast was administered without complication. A dose lowering technique was utilized adhering to the principles of ALARA. FINDINGS: No pneumatosis, free air or portal venous gas is present. Subpleural lower lung opacities represent atelectasis. The heart is moderately enlarged. There are no hepatic lesions. Hepatic steatosis is noted. There is no biliary or pancreatic ductal dilatation. Adrenal glands and pancreas are unremarkable. Several renal cysts measure up to 9 cm. Multiple bilateral renal calculi measure up to 8 mm. There are no ureteral calculi. There is no hydronephrosis. Parapelvic cysts are again noted. Hdz balloon within the bladder is noted. The bladder is collapsed. Bladder wall thickening with adjacent stranding. There is extensive colonic diverticulosis. No evidence for acute diverticulitis. There is a moderate to large amount of stool within the rectum. There is no lymphadenopathy. Gallstones within the gallbladder are noted. There is no evidence for acute cholecystitis. Postoperative findings within lumbar spine are present. There are several old lower thoracic spine compression fractures. No acute fractures are identified. IMPRESSION: 1. Bladder wall thickening with adjacent stranding which could be correlated with urinalysis. Hdz balloon in place. 2. Bilateral nephrolithiasis. No ureteral calculi. No hydronephrosis. 3. Cholelithiasis. 4. Moderate to large amount of stool within the rectum. ACT 112: Negative or not required by law. Electronically signed by: Aba Oliveira M.D. 06/12/2025 11:45 AM Discharge Plan Visit Data Chief Complaint: Illness Stated Complaint: ALOC, ILLNESS ED Provider: Abhinav Holman Discharge Problem: Weakness, AMS (altered mental status), Acute UTI, Acute hypernatremia Patient Disposition: Being Evaluated by Hospitalist Condition: Fair Prescriptions Prescriptions: No Action atorvastatin [Lipitor] 10 mg tablet 10 mg PO HS diclofenac sodium 1 % gel 4 g TOPICAL Q6 PRN (Reason: spine pain) Rx Instructions: apply to spine alendronate [Fosamax] 70 mg Tablet 70 mg PO WK Rx Instructions: give every thursday PreserVision AREDS-2 250-90-40-1 mg Capsule 1 tab PO AMHS carboxymethylcellulose sodium [Refresh Tears] 0.5 % Drops 1 drp OPHTHALMIC (EYE) .EVERY 24 HOURS PRN (Reason: Dry Eyes) acetaminophen [Tylenol] 325 mg Tablet 975 mg PO TID Rx Instructions: 3 tablet dose cholecalciferol (vitamin D3) [Vitamin D3] 25 mcg (1,000 unit) Capsule 25 mcg PO QAM diclofenac sodium 1 % Gel 4 g TOPICAL Q6 PRN (Reason: LEFT HIP PAIN) Rx Instructions: fore bilateral hips acetaminophen 325 mg Tablet 650 mg PO Q4H PRN (Reason: Pain (Scale Score 1-3)) Rx Instructions: DO NOT EXCEED 4000MG / 24 HOURS acetaminophen 325 mg Tablet 650 mg PO Q4H PRN (Reason: FEVER >100) Rx Instructions: DO NOT EXCEED 4000MG IN 24 HOURS acetaminophen 650 mg Suppository 650 mg NV Q4H PRN (Reason: Fever) methylphenidate HCl 20 mg tablet 20 mg PO QAM gabapentin 400 mg capsule 400 mg PO TID cyanocobalamin (vitamin B-12) 1,000 mcg Tablet 1,000 mcg PO DAILY warfarin 3 mg tablet 1.5 mg PO DIRECTED Rx Instructions: 1.5 MG WEDNESDAYS warfarin 3 mg tablet 3 mg PO Rx Instructions: GIVE 3MG AT BEDTIME MON, THU, , FRI, SAT, SUN cephalexin 500 mg capsule 500 mg PO TID Rx Instructions: STARTED ON 06/08/25 FOR 7 DAYS FOR UTI carbidopa-levodopa 25-100 mg tablet 1 tab PO TID Rx Instructions: ON EMPTY STOMACH 30 MIN PRIOR TO FOOD escitalopram oxalate 20 mg tablet 20 mg PO QAM Lactobacillus acidoph-L.bulgar [Floranex] 1 million cell Tablet 1 tab PO DAILY Referrals Referrals: Amy Barreto at [place] [Primary Care Provider] -
--- NOTE | 2025-06-12 10:25 | XRay Report ---
XR chest 1V portable CLINICAL HISTORY: weakness COMPARISON STUDY: Chest CT March 20, 2014. Chest radiograph January 06, 2023. FINDINGS: Mild elevation of the right hemidiaphragm has slightly increased. No pneumothorax or pleura l effusion is present. Linear left midlung density represents scarring. Cardiomegaly is unchanged. No evidence for pulmonary edema. There is no consolidation to suggest pneumonia. IMPRESSION: No acute cardiopulmonary findings. Stable cardiomegaly. ACT 112: Negative or not required by law. Electronically signed by: Aba Oliveira M.D. 06/12/2025 10:23 AM
[2025-06-12 10:50] LABS: Hematocrit (blood only) 45.8 % (37.0-47.0); Hemoglobin 14.4 g/dL (12.0-16.0); Immature Granulocytes # (auto) 0.06 K/uL (0.01-0.20); Immature Granulocytes % (auto) 0.6 %; Mean Corpuscular Hemoglobin 31.2 pg (25.0-34.0); Mean Corpuscular Volume 99.3 fL (80.0-100.0); Platelet Count 199 K/uL (130-400); RDW Standard Deviation 58.6 fL (36.4-46.3); Red Blood Count 4.61 M/uL (4.20-5.40); White Blood Count 9.92 K/ul (4.8-10.8)
[2025-06-12 10:56] LABS: Appearance Urine Cloudy (Clear); Bacteria Urine Automated 2+ (None Seen); Glucose Urine UA Negative (Negative); WBC Urine Automated >50 /hpf (0-5)
[2025-06-12 11:07] LABS: Chlamydia pneumoniae PCR Not Detected (NotDetected); Coronavirus 229E PCR Not Detected (NotDetected); Coronavirus CoV-2 (COVID19)PCR Not Detected (NotDetected); Coronavirus HKU1 PCR Not Detected (NotDetected); Coronavirus NL63 PCR Not Detected (NotDetected); Coronavirus OC43PCR Not Detected (NotDetected); Human Metapneumovirus PCR Not Detected (NotDetected); Parainfluenza Virus 1 PCR Not Detected (NotDetected); Parainfluenza Virus 2 PCR Not Detected (NotDetected); Parainfluenza Virus 3 PCR Not Detected (NotDetected); Parainfluenza Virus 4 PCR Not Detected (NotDetected); Respiratory Syncytial VirusPCR Not Detected (NotDetected); Rhinovirus/Enterovirus PCR Not Detected (NotDetected)
[2025-06-12 11:08] LABS: Alanine Aminotransferase 12.0 U/L (7-52); Albumin Globulin Ratio 1.4 (0.9-2); Albumin Level 4.2 gm/dl (3.4-5.0); Alkaline Phosphatase 90.0 U/L (34-104); Anion Gap 9.0 (3-11); Bilirubin,Total 0.7 mg/dl (0.2-1.0); Blood Urea Nitrogen 22.0 mg/dl (6-23); Calcium 9.5 mg/dl (8.6-10.3); Carbon Dioxide 29.0 mmol/L (21-32); Chloride 117.0 mmol/L (98-107); Creatine Kinase 12.0 U/L (26-192); Creatinine Clr Calc Pharmacy 93.7 ml/min; Globulin 3.0 gm/dl (2.5-4.0); Glucose 137.0 mg/dl (70-99(Fasting)); Magnesium 2.6 mg/dl (1.7-2.4); Potassium 3.6 mmol/L (3.5-5.1); Sodium 155.0 mmol/L (136-145); Total Protein 7.2 gm/dl (6.0-8.3)
[2025-06-12] MEDS: OPTIRAY 320 100ml IV ONE (11:13)
[2025-06-12 11:20] LABS: Partial Thromboplastin Time 45 Seconds (21-31); Prothrombin Time 72.9 Seconds (9.0-12.0)
[2025-06-12 11:23] LABS: Thyroid Stimulating Hormone 1.288 uIu/ml (0.300-4.500)
[2025-06-12] MEDS: SODIUM CHLORIDE 0.9% 1,000 ML IV SCH (11:26)
[2025-06-12] MEDS: cefTRIAXone SODIUM 2,000 MG/50 ML BAG IV STA (11:26)
--- NOTE | 2025-06-12 11:47 | CT Scan Report ---
CT SCAN OF THE ABDOMEN AND PELVIS WITH IV CONTRAST CLINICAL HISTORY: Altered mental status. Decreased p.o. intake. COMPARISON STUDY: CT of the abdomen and pelvis January 06, 2023. TECHNIQUE: Following the IV administration of 93 cc of Optiray 320, CT scan of the abdomen and pelvi s is performed from the lung bases to the proximal femora. Images are reviewed in the axial, sagittal , and coronal planes. IV contrast was administered without complication. A dose lowering technique wa s utilized adhering to the principles of ALARA. FINDINGS: No pneumatosis, free air or portal venous gas is present. Subpleural lower lung opacities r epresent atelectasis. The heart is moderately enlarged. There are no hepatic lesions. Hepatic steatos is is noted. There is no biliary or pancreatic ductal dilatation. Adrenal glands and pancreas are unr emarkable. Several renal cysts measure up to 9 cm. Multiple bilateral renal calculi measure up to 8 m m. There are no ureteral calculi. There is no hydronephrosis. Parapelvic cysts are again noted. Hdz balloon within the bladder is noted. The bladder is collapsed. Bladder wall thickening with adjacent stranding. There is extensive colonic diverticulosis. No evidence for acute diverticulitis. There is a moderate to large amount of stool within the rectum. There is no lymphadenopathy. Gallstones withi n the gallbladder are noted. There is no evidence for acute cholecystitis. Postoperative findings wit hin lumbar spine are present. There are several old lower thoracic spine compression fractures. No ac izabella fractures are identified. IMPRESSION: 1. Bladder wall thickening with adjacent stranding which could be correlated with urinalysis. Hdz b alloon in place. 2. Bilateral nephrolithiasis. No ureteral calculi. No hydronephrosis. 3. Cholelithiasis. 4. Moderate to large amount of stool within the rectum. ACT 112: Negative or not required by law. Electronically signed by: Aba Oliveira M.D. 06/12/2025 11:45 AM
[2025-06-12 11:55] LABS: INR 7.7 (0.9-1.1)
--- NOTE | 2025-06-12 12:02 | CT Scan Report ---
CT head/brain wo con CLINICAL HISTORY: 85 years-old Female with ams, weak. Acutely altered mental status with weakness TECHNIQUE: Multiple axial CT images of the head were obtained without contrast. A dose lowering tech nique was utilized adhering to the principles of ALARA. CT DOSE: 2021.28 mGy.cm COMPARISON: 01/06/2023, 03/30/2022 FINDINGS: No acute intracranial hemorrhage, midline shift, intracranial mass, acute territorial ischemia or abn ormal extra-axial collection. Involutional changes with chronic microvascular ischemic disease. Uncha nged ventriculomegaly. The calvarium is intact. Mastoid air cells are clear. Severe near complete opacification of the left sphenoid sinus, unchanged. Prior partial ethmoidectomy. Elongation of the bilateral globes is a skin fitter sina finding. Prior bilateral lens repair. IMPRESSION: 1. No acute intracranial abnormality. 2. Unchanged ventricular dilation which is likely on an ex vacuo basis. Normal pressure hydrocephalus could appear similarly. ACT 112: Negative or not required by law. The above report was generated using voice recognition software. It may contain grammatical, syntax o r spelling errors. Electronically signed by: Maxim Sales M.D. 06/12/2025 12:01 PM
--- NOTE | 2025-06-12 12:27 | History & Physical Report ---
Date of Service June 12, 2025 Assessment & Plan (1) Acute UTI: (2) Metabolic encephalopathy: (3) Acute hypernatremia: (4) Dehydration: Plan This is a 85 yr old F who has a significant PMH of prison anticoagulation in setting of chronic DVT/hx of PE, moderate vascular dementia, Parkinson disease and macular degeneration who presents to ED 2/2 not eating/drinking for a few days. #Acute UTI admit to med tele continue IV rocephin, await culture Pt does not meet sepsis criteria blood and urine culture pending #Acute dehydration #Hypernatremia in setting of poor oral intake in setting of dementia Pt received 1L IVF yesterday and 1L and IVF in ED repeat bmp at 1430 and 2000 NSS 80cc for now, consider D5W if minimal improvement unknown duration, but suspect chronic #Supratherapeutic INR no s/sx of bleeding, hold warfarin for now, repeat INR in a.m. 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 Mendoza, please see addendum I spent a total of 76 minutes coordinating, documenting and providing care for this patient excluding time spent in the performance of separately billed services or time spent by another provider/QHP. History of Present Illness Chief Complaint: Not eating/Drinking x 2-3 days. Primary Care Provider: [facility] [place] This is a 85 yr old F who has a significant PMH of prison anticoagulation in setting of chronic DVT/hx of PE, moderate vascular dementia, parkinson disease and macular degeneration who presents to ED 2/2 not eating/drinking for a few days. Her and son are at bedside who helps elicit hx. states pt stopped eating 2-3 days ago, will not open her mouth and will not talk. She has hx of UTI in the past for the last 50 years. She was started on antibiotic at [facility] and received IVF yesterday due to patient not taking in anything orally. Outpt labs reveal Na of 156; therefore she was sent to ED. At baseline pt is able to talk, follow commands and is bed bound. denies any recent UTI sx or pt c/o of any cp or sob. Staff at [facility] have been able to get meds into her, but it has faith struggle. Upon questioning denies hx of dementia that he is aware of. States she had a large brain bleed several years ago after a fall that has since resolved. Allergies Allergy/AdvReac Type Severity Reaction Status Date / Time Penicillins Allergy Intermediate hives Verified 01/06/23 16:21 pollen extracts Allergy Intermediate sinus Verified 01/06/23 16:21 issues Home Medications Medication Instructions Recorded Confirmed Type atorvastatin 10 mg tablet (Lipitor) 10 mg PO HS 03/11/19 06/12/25 History acetaminophen 325 mg tablet 975 mg PO TID 3 GRAMS/24 HOURS 03/30/22 06/12/25 History (Tylenol) cholecalciferol (vitamin D3) 25 25 mcg PO QAM 03/30/22 06/12/25 History mcg (1,000 unit) capsule (Vitamin D3) diclofenac sodium 1 % topical gel 4 g topical Q6 PRN LEFT HIP PAIN 03/30/22 06/12/25 History alendronate 70 mg tablet (Fosamax) 70 mg PO WK 01/06/23 06/12/25 History carboxymethylcellulose sodium 0.5 1 drp ophthalmic (eye) .EVERY 24 01/06/23 06/12/25 History % eye drops (Refresh Tears) HOURS PRN Dry Eyes diclofenac sodium 1 % topical gel 4 g topical Q6 PRN spine pain 01/06/23 06/12/25 History vit C 250 mg-vit E 90 mg-zinc 40 1 tab PO AMHS 01/06/23 06/12/25 History mg-copper 1 rc-prftjt-elshoe capsule (PreserVision AREDS-2) Lactobacillus acidoph-L.bulgaricus 1 tab PO DAILY 06/12/25 06/12/25 History 1 million cell tablet (Floranex) acetaminophen 325 mg tablet 650 mg PO Q4H PRN FEVER >100 06/12/25 06/12/25 History acetaminophen 325 mg tablet 650 mg PO Q4H PRN Pain (Scale 06/12/25 06/12/25 History Score 1-3) acetaminophen 650 mg rectal 650 mg ND Q4H PRN Fever 06/12/25 06/12/25 History suppository carbidopa 25 mg-levodopa 100 mg 1 tab PO TID 06/12/25 06/12/25 History tablet cephalexin 500 mg capsule 500 mg PO TID 06/12/25 06/12/25 History cyanocobalamin (vitamin B-12) 1,000 mcg PO DAILY 06/12/25 06/12/25 History 1,000 mcg tablet escitalopram oxalate 20 mg tablet 20 mg PO QAM 06/12/25 06/12/25 History gabapentin 400 mg capsule 400 mg PO TID 06/12/25 06/12/25 History methylphenidate HCl 20 mg tablet 20 mg PO QAM 06/12/25 06/12/25 History warfarin 3 mg tablet 1.5 mg PO DIRECTED 06/12/25 06/12/25 History warfarin 3 mg tablet 3 mg PO SUMOTUTHFRSA 06/12/25 06/12/25 History Past Med/Surg History Problem List Dehydration Acute hypernatremia Acute UTI Recurrent UTI Urinary retention Ambulatory dysfunction Neuropathy Depression History of pulmonary embolism HTN (hypertension) History of compression fracture of spine History of dysphagia L5 vertebral fracture Fall Metabolic encephalopathy Altered mental status Generalized weakness (Acute) Acute alteration in mental status (Acute) Compression fx, lumbar spine (Acute) Compression fx, thoracic spine (Acute) Urinary tract infection (Acute) Right knee pain (Chronic) Left knee pain (Chronic) Lumbar facet joint syndrome (Chronic) DVT (deep venous thrombosis) (Chronic) Pulmonary embolism (Chronic) Osteoporosis (Chronic) HLD (hyperlipidemia) (Chronic) Osteoarthritis (Chronic) Gastroparesis (Chronic) Macular degeneration (Chronic) Peripheral neuropathy (Chronic) History of appendectomy (Chronic) H/O sinus surgery (Chronic) S/P lumbar fusion (Chronic) Surgical History History of cataract surgery Family History Other Cancer Social History Smoking Status: Never smoker Second Hand Exposure: No; Hx Alcohol Use: No Hx Substance Use: No Preferred Language: Bangladeshi Communication Ability: Effective Analytical Chemist Required: No Beliefs That Will Affect Care: None marital status: Current Living Situation: Personal Care Facility current occupational status: retired Feels Safe at Home: Declines to Answer Assistive Devices: Wheelchair Review of Systems Review of Systems: All systems reviewed & are unremarkable except as noted in HPI & below Physical Exam Physical Exam: Constitutional: WD/WN, elderly, F, parkinsonian features, vitals as above, NAD, sitting up in bed, awake, but does not verbally respond Head: Normocephalic, Atraumatic Eyes: conjunctivae normal, anicteric sclerae ENMT: external ear and nose normal, oropharynx with dry membranes Neck: trachea midline, no thyromegaly normal visual inspection Respiratory: CTAB, no W/R/R, normal inspection, no accessory muscle use Cardiovascular: RRR, no murmur, no edema Chest: normal inspection of chest Abdomen: S, NT, ND, +BS x 4 Musculoskeletal: no cyanosis or clubbing Skin: no rashes, warm and dry normal turgor Neurologic: no face palsy, no dysarthria CN's II-XI intact bilaterally and m oves all extremities Psychiatric: unable to assess Results & Data Results & Data Vital Signs (Past 12 Hours) Vital Signs Temp Pulse Pulse Resp BP BP Pulse Ox 06/12/25 11:42 93 H 06/12/25 11:39 102 H 16 164/89 H 97 06/12/25 09:59 63 15 94 06/12/25 09:36 37.8 C H 64 24 178/82 H 94 O2 Del Method 06/12/25 11:42 06/12/25 11:39 Room Air 06/12/25 09:59 Room Air 06/12/25 09:36 Room Air Laboratory Results I have independently reviewed and interpreted patient's admitting labs including CBC, CMP, PTT, PT/INR, mag and troponin. Diagnostic Findings Chest X-Ray 06/12/25 09:59 XR chest 1V portable CLINICAL HISTORY: weakness COMPARISON STUDY: Chest CT March 20, 2014. Chest radiograph January 06, 2023. FINDINGS: Mild elevation of the right hemidiaphragm has slightly increased. No pneumothorax or pleural effusion is present. Linear left midlung density represents scarring. Cardiomegaly is unchanged. No evidence for pulmonary edema. There is no consolidation to suggest pneumonia. IMPRESSION: No acute cardiopulmonary findings. Stable cardiomegaly. ACT 112: Negative or not required by law. Electronically signed by: Aba Oliveira M.D. 06/12/2025 10:[address] 06/12/25 10:00 CT head/brain wo con CLINICAL HISTORY: 85 years-old Female with ams, weak. Acutely altered mental status with weakness TECHNIQUE: Multiple axial CT images of the head were obtained without contrast. A dose lowering technique was utilized adhering to the principles of ALARA. CT DOSE: 2021.28 mGy.cm COMPARISON: 01/06/2023, 03/30/2022 FINDINGS: No acute intracranial hemorrhage, midline shift, intracranial mass, acute territorial ischemia or abnormal extra-axial collection. Involutional changes with chronic microvascular ischemic disease. Unchanged ventriculomegaly. The calvarium is intact. Mastoid air cells are clear. Severe near complete opacification of the left sphenoid sinus, unchanged. Prior partial ethmoidectomy. Elongation of the bilateral globes is a chronic finding. Prior bilateral lens repair. IMPRESSION: 1. No acute intracranial abnormality. 2. Unchanged ventricular dilation which is likely on an ex vacuo basis. Normal pressure hydrocephalus could appear similarly. ACT 112: Negative or not required by law. The above report was generated using voice recognition software. It may contain grammatical, syntax or spelling errors. Electronically signed by: Maxim Sales M.D. 06/12/2025 12:01 PM Abdomen/Pelvis CT 06/12/25 10:59 CT SCAN OF THE ABDOMEN AND PELVIS WITH IV CONTRAST CLINICAL HISTORY: Altered mental status. Decreased p.o. intake. COMPARISON STUDY: CT of the abdomen and pelvis January 06, 2023. TECHNIQUE: Following the IV administration of 93 cc of Optiray 320, CT scan of the abdomen and pelvis is performed from the lung bases to the proximal femora. Images are reviewed in the axial, sagittal, and coronal planes. IV contrast was administered without complication. A dose lowering technique was utilized adhering to the principles of ALARA. FINDINGS: No pneumatosis, free air or portal venous gas is present. Subpleural lower lung opacities represent atelectasis. The heart is moderately enlarged. There are no hepatic lesions. Hepatic steatosis is noted. There is no biliary or pancreatic ductal dilatation. Adrenal glands and pancreas are unremarkable. Several renal cysts measure up to 9 cm. Multiple bilateral renal calculi measure up to 8 mm. There are no ureteral calculi. There is no hydronephrosis. Parapelvic cysts are again noted. Hdz balloon within the bladder is noted. The bladder is collapsed. Bladder wall thickening with adjacent stranding. There is extensive colonic diverticulosis. No evidence for acute diverticulitis. There is a moderate to large amount of stool within the rectum. There is no lymphad enopathy. Gallstones within the gallbladder are noted. There is no evidence for acute cholecystitis. Postoperative findings within lumbar spine are present. There are several old lower thoracic spine compression fractures. No acute fractures are identified. IMPRESSION: 1. Bladder wall thickening with adjacent stranding which could be correlated with urinalysis. Hdz balloon in place. 2. Bilateral nephrolithiasis. No ureteral calculi. No hydronephrosis. 3. Cholelithiasis. 4. Moderate to large amount of stool within the rectum. ACT 112: Negative or not required by law. Electronically signed by: Aba Oliveira M.D. 06/12/2025 11:45 AM Medications Administered Medication List Discontinued Medications Sodium Chloride (Nss) 1,000 mls @ 999 mls/hr IV .Q1H1M ARASELI Stop: 06/12/25 11:00 Last Admin: 06/12/25 11:26 Dose: 999 mls/hr Documented By: tray Ceftriaxone Sodium (Rocephin) 2,000 mg in 50 mls @ 100 mls/hr IV NOW STA Stop: 06/12/25 11:28 Last Infusion: 06/12/25 11:56 Dose: Infused Documented By: tray Admin: 06/12/25 11:26 Dose: 100 mls/hr Documented By: tray Ioversol (Optiray 320 100ml) 93 ml IV ONCE ONE Stop: 06/12/25 11:13 Last Admin: 06/12/25 11:13 Dose: 93 ml Documented By: CIERA ECG Additional Comments: I have independently reviewed and interpreted patient's admitting EKG which revealed: 63, nsr, t wave inversion v1-4, II and AVF, no st or t wave changes COVID-19 Results Results COVID-19 Adm Lab Results: RBC 4.61 M/uL (4.20-5.40) 06/12/25 WBC 9.92 K/ul (4.8-10.8) 06/12/25 Hgb 14.4 g/dL (12.0-16.0) 06/12/25 Hct 45.8 % (37.0-47.0) 06/12/25 Plt Count 199 K/uL (130-400) 06/12/25 Neutrophils (%) (Auto) 81.5 % 06/12/25 Lymphocytes (%) (Auto) 12.5 % 06/12/25 Monocytes # (Auto) 0.51 K/uL (0.11-0.59) 06/12/25 Eosinophils # (Auto) 0.01 K/uL (0.00-0.50) 06/12/25 Immature Granulocyte % (Auto) 0.6 % 06/12/25 Neutrophils # (Auto) 8.08 K/uL (1.40-6.50) H 06/12/25 Lymphocytes # (Auto) 1.24 K/uL (1.20-3.40) 06/12/25 Monocytes # (Auto) 0.51 K/uL (0.11-0.59) 06/12/25 Eosinophils # (Auto) 0.01 K/uL (0.00-0.50) 06/12/25 Basophils # (Auto) 0.02 K/uL (0.00-0.20) 06/12/25 Immature Granulocyte # (Auto) 0.06 K/uL (0.01-0.20) 5 Na 155 mmol/L (136-145) H 06/12/25 K 3.6 mmol/L (3.5-5.1) 06/12/25 Cl 117 mmol/L (98-107) H 06/12/25 CO2 29 mmol/L (21-32) 06/12/25 Anion Gap 9 (3-11) 06/12/25 BUN 22 mg/dl (6-23) 06/12/25 Creatinine 0.46 mg/dl (0.6-1.2) L 06/12/25 BUN/Creatinine Ratio 47.8 (10-20) H 06/12/25 Glucose Level 137 mg/dl (70-99(Fasting)) H 06/12/25 Ca 9.5 mg/dl (8.6-10.3) 06/12/25 Total Bilirubin 0.7 mg/dl (0.2-1.0) 06/12/25 AST/SGOT 15 U/L (13-39) 06/12/25 ALT/SGPT 12 U/L (7-52) 06/12/25 Alkaline Phosphatase 90 U/L (34-104) 06/12/25 Total Protein 7.2 gm/dl (6.0-8.3) 06/12/25 Albumin 4.2 gm/dl (3.4-5.0) 06/12/25 Globulin 3.0 gm/dl (2.5-4.0) 06/12/25 Albumin/Globulin Ratio 1.4 (0.9-2) 06/12/25 Total CK 12 U/L (26-192) L 06/12/25 Procalcitonin 0.11 ng/ml (0-0.5) 06/12/25 PTT 45 Seconds (21-31) H 06/12/25 INR 7.7 (0.9-1.1) H* 06/12/25 Adenovirus (PCR) Not Detected (NotDetected) 06/12/25 B. parapertussis DNA (PCR) Not Detected (NotDetected) 05/27 02/17 B. pertussis DNA (PCR) Not Detected (NotDetected) 06/12/25 C. pneumoniae DNA (PCR) Not Detected (NotDetected) 5 Coronavirus Type OC43 (PCR) Not Detected (NotDetected) Coronavirus Type HKU1 (PCR) Not Detected (NotDetected) Coronavirus Type 229E (PCR) Not Detected (NotDetected) COVID-19 PCR Not Detected (NotDetected) 06/12/25 Coronavirus Type NL63 (PCR) Not Detected (NotDetected) Human Metapneumovirus (PCR) Not Detected (NotDetected) Influenza Virus Type A (PCR) Not Detected (NotDetected) Influenza Virus Type B (PCR) Not Detected (NotDetected) M. pneumoniae (PCR) Not Detected (NotDetected) 06/12/25 Parainfluenza Type 1 (PCR) Not Detected (NotDetected) 05/27 02/17 Parainfluenza Type 2 (PCR) Not Detected (NotDetected) 05/27 02/17 Parainfluenza Type 3 (PCR) Not Detected (NotDetected) 05/27 02/17 Parainfluenza Type 4 (PCR) Not Detected (NotDetected) 05/27 02/17 RSV (PCR) Not Detected (NotDetected) 06/12/25 Enterovirus/Rhinovirus (PCR) Not Detected (NotDetected) Chest X-Ray 06/12/25 Code Status & VTE Plan Code Status FULL CODE VTE Prophylaxis Plan VTE Prophylaxis will be ordered: No Supervising Physician Co-Signing Physician Notes 85-year-old female with PMH of HTN, HLD, CKD III, DVT/PE on coumadin, chronically anticoagulated on warfarin, vertebral artery dissection, recurrent falls, SDH secondary to fall in 03/2022 treated conservatively, h/o lumbar laminectomy, history T8 compression fracture, depression presented to ER for not eating/drinking and possible increased confusion since last few days MEDICAL DIR. Labs reviewed, patient noted to have UTI, was dehydrated and hypovolemic with sodium of 155. received 1 L NSS in the ED. Will continue with half NSS and repeat BMP at 4-hour shahrzad. Further IV fluid based on BMP result. Supratherapeutic INR noted, hold Coumadin for now, no signs of bleeding, hemoglobin around baseline. On exam: Patient denies pain, does not verbally respond, spontaneously open eyes, noncooperative, dry oral mucosa, no BLE edema. Rest of the examination as above. Total time spent independently: 23 minutes. I have seen and examined the patient and have discussed the case with the provider above. I agree with the assessment and plan as stated.
[2025-06-12] MEDS: SODIUM CHLORIDE 0.45 % 1,000 ML IV SCH (13:25)
[2025-06-12] MEDS ORDERED: ACETAMINOPHEN 325 MG TAB PO PRN (15:58)
[2025-06-12] MEDS ORDERED: ALUMINUM/MAGNESIUM SUSP 30 ML UDC PO PRN (15:58)
[2025-06-12] MEDS ORDERED: MAGNESIUM HYDROXIDE SUSP 30 ML UDC PO PRN (15:58)
[2025-06-12] MEDS ORDERED: POLYETHYLENE (MIRALAX) 17 GM PACK PO PRN (15:58)
[2025-06-12] MEDS ORDERED: MELATONIN 3 MG TAB PO PRN (15:58)
[2025-06-12] MEDS ORDERED: ARTIFICIAL TEARS OP PRN (16:04)
[2025-06-12] MEDS: GABAPENTIN 400 MG CAP PO SCH (16:48)
[2025-06-12] MEDS: CARBIDOPA/LEVODOPA 25/100MG TAB PO SCH (16:48)
[2025-06-12 18:28] LABS: Anion Gap 10.0 (3-11); Blood Urea Nitrogen 18.0 mg/dl (6-23); Calcium 8.8 mg/dl (8.6-10.3); Carbon Dioxide 26.0 mmol/L (21-32); Chloride 118.0 mmol/L (98-107); Creatinine Clr Calc Pharmacy 123.2 ml/min; Glucose 123.0 mg/dl (70-99(Fasting)); Potassium 3.4 mmol/L (3.5-5.1); Sodium 154.0 mmol/L (136-145)
[2025-06-12] MEDS: POTASSIUM CHLORIDE / WTR 10 MEQ/100 ML PLCT IV SCH (20:22)
[2025-06-12] MEDS: ATORVASTATIN 10 MG TAB PO SCH (20:59)
[2025-06-12] MEDS: DEXTROSE 5% 1,000 ML IV SCH (21:27)
[2025-06-12 23:21] LABS: Anion Gap 6.0 (3-11); Blood Urea Nitrogen 15.0 mg/dl (6-23); Calcium 8.3 mg/dl (8.6-10.3); Carbon Dioxide 27.0 mmol/L (21-32); Chloride 119.0 mmol/L (98-107); Creatinine Clr Calc Pharmacy 110.6 ml/min; Glucose 119.0 mg/dl (70-99(Fasting)); Potassium 3.4 mmol/L (3.5-5.1); Sodium 152.0 mmol/L (136-145)
[2025-06-13 07:15] LABS: Hematocrit (blood only) 37.9 % (37.0-47.0); Hemoglobin 12.0 g/dL (12.0-16.0); Immature Granulocytes # (auto) 0.05 K/uL (0.01-0.20); Immature Granulocytes % (auto) 0.6 %; Mean Corpuscular Hemoglobin 31.1 pg (25.0-34.0); Mean Corpuscular Volume 98.2 fL (80.0-100.0); Platelet Count 151 K/uL (130-400); RDW Standard Deviation 58.2 fL (36.4-46.3); Red Blood Count 3.86 M/uL (4.20-5.40); White Blood Count 8.28 K/ul (4.8-10.8)
[2025-06-13 07:35] LABS: Anion Gap 6.0 (3-11); Blood Urea Nitrogen 13.0 mg/dl (6-23); Calcium 8.4 mg/dl (8.6-10.3); Carbon Dioxide 28.0 mmol/L (21-32); Chloride 117.0 mmol/L (98-107); Creatinine Clr Calc Pharmacy 132.8 ml/min; Glucose 152.0 mg/dl (70-99(Fasting)); Magnesium 2.3 mg/dl (1.7-2.4); Potassium 3.1 mmol/L (3.5-5.1); Sodium 151.0 mmol/L (136-145)
[2025-06-13 07:43] LABS: Prothrombin Time 88.7 Seconds (9.0-12.0)
[2025-06-13 07:56] LABS: INR > 9.5 (0.9-1.1)
[2025-06-13] MEDS: CEROVITE ADV FORMULA TAB PO SCH (08:54)
[2025-06-13] MEDS: ADVANCED PROBIOTIC 625 MG CAPSULE PO SCH (08:54)
[2025-06-13] MEDS: METHYLPHENIDATE HCL 10 MG TABLET PO SCH (08:54)
[2025-06-13] MEDS: CYANOCOBALAMIN (B-12) 500 MCG TABLET PO SCH (08:54)
[2025-06-13] MEDS: CHOLECALCIFEROL 25 MCG (1000 UNITS) TAB PO SCH (08:54)
[2025-06-13] MEDS: ESCITALOPRAM OXALATE 20 MG TAB PO SCH (08:54)
[2025-06-13] MEDS ORDERED: PHYTONADIONE PED 1 MG/0.5ML AMP/SYRG IM ONE (10:34)
[2025-06-13] MEDS ORDERED: ACETAMINOPHEN 650 MG SUPP PR PRN (10:38)
[2025-06-13] MEDS: DEXTROSE 5% 500 ML IV SCH (11:01)
--- NOTE | 2025-06-13 11:01 | Hospitalist Progress Note ---
Date of Service June 13, 2025 Assessment & Plan (1) Acute metabolic encephalopathy: (2) Pseudomonas urinary tract infection: (3) Dehydration with hypernatremia: (4) Parkinson's disease dementia: (5) Depression: (6) History of pulmonary embolism: (7) Supratherapeutic INR: (8) Warfarin anticoagulation: Plan Patient 85-year-old female with acute metabolic encephalopathy in the setting of presumed Parkinson's dementia, urinary tract infection, hypernatremia due to poo r oral intake. Continue D5W, monitor electrolytes Replace potassium Urine culture growing Pseudomonas, discontinue ceftriaxone, start meropenem based on antibiogram, follow sensitivities INR still significantly elevated, most likely elevated due to the fact the patient has not been eating or drinking yet still getting her warfarin dose. No evidence of acute bleeding, however with INR greater than 9 high risk for spontaneous bleeding. Patient has a remote history of cerebral hematoma. Vitamin K IM x 1 dose now Continue to follow INR Phone conversation with patient's . Explained to him that my concern is that she is having some progression of her Parkinson's and Parkinson's dementia. Eating and drinking will continue to be an issue and these issues of dehydration encephalopathy will recur. Introduced and started discussion of goals of care and CODE STATUS. He seem to understand that this is a progressive issue and would like to think about what she would want and get back to us. Admission and Anticipated Discharge Date Admission Date: June 12, 2025 Subjective Patient minimally to unresponsive. Physical Exam Physical Exam: Constitutional: No acute distress HEENT: Mucous membranes extremely dry Lungs: Clear to auscultation, decreased, no wheezes rales or rhonchi CV: S1-S2, regular Abdomen: Soft, nontender, nondistended Extremities: No significant edema Neuro: Essentially unresponsive to aggressive stimulation, does not follow commands, does not open eyes Results & Data Results & Data Vital Signs (Past 12 Hours) Vital Signs Temp Pulse Pulse Resp BP Pulse Ox O2 Del Method 06/13/25 08:10 36.8 C 53 L 17 153/76 H 95 Room Air 06/13/25 08:00 Room Air 06/13/25 05:00 54 L 06/13/25 03:27 36.4 C L 53 L 12 134/75 94 Room Air 06/12/25 23:12 36.4 C 62 15 130/73 94 Room Air Diagnostic Findings Reviewed imaging, laboratory and diagnostic studies. Pertinent findings as below. Urine culture growing Pseudomonas WBCs 8.2 Hemoglobin 12.0 INR greater than 9.5 Sodium 151 Potassium 3.1 Chloride 117 Creatinine 0.33 Glucoses reviewed
[2025-06-13] MEDS: POTASSIUM CHLORIDE / WTR 10 MEQ/100 ML PLCT IV SCH (11:33)
[2025-06-13] MEDS: MEROPENEM 500 MG in SYRINGE 0 ML IV SCH (11:39)
[2025-06-13] MEDS ORDERED: PHYTONADIONE 10 MG/ML AMP SC ONE ×2 (11:45→12:30)
[2025-06-13] MEDS ORDERED: cefTRIAXone SODIUM 2,000 MG/50 ML BAG IV SCH (12:00)
--- NOTE | 2025-06-13 15:13 | Communication Note ---
Date of Service: June 13, 2025 Goals of care discussion greater than 16 minutes, 20 minutes. Met patient's at bedside, patient is now even a little bit more alert and responsive especially to his voice. He reports that she had no verbal response to him yet. Earlier on the phone we discussed DNR/DNI status. He states that he did speak with his children and they are leaning towards making her a DNR DNI, however, would like to think about it for another day or so. I informed him that currently she is full code and that if anything catastrophic would happen we would do all interventions. Certainly if he would change his mind he should let us know and we can change her CODE STATUS. We also discussed her chronic medical issues and specifically how she has been eating and drinking. I asked him how she has been eating or drinking for 6 weeks ago. He states that she would often miss meals or part of her meals due to the fact that she was just so sleepy and would not awaken to eat that much at all. If she was awake enough to eat she might eat 50% of her meal. He states that she would not drink a whole lot during the day but would occasionally drink a 6 to 8 ounce cup of juice. He states that usually she would only eat the desserts and sweet things. He also mentioned that she has had chronic issues with her urine dating back to 50 years ago. Has had recurrent infections and bladder issues. Patient's was able to teach back to me my concern that with her poor oral intake she will continue to cycle in and out of the hospital with dehydration, hyponatremia, encephalopathy, opportunistic infections. With this understanding I took the opportunity to introduce the concept of hospice. I explained to him that at some point patient sometimes choose not to go through the recurrent hospitalizations and choose to be kept comfortable in their usual place of care. I introduced this concept and he said he would look into this a bit further and I told him that we could provide information if he was interested. He states that he certainly has seen her decline the last 4 years that she has been in [facility]. He states when she was admitted to [facility] she was able to ambulate. Now she is essentially bedbound and sleeps most of the day. We concluded our conversation with me confirming that I had answered all his questions. He will continue to think about CODE STATUS and ongoing goals of care and let us know if there are any updates.
[2025-06-13 15:37] LABS: Anion Gap 8.0 (3-11); Blood Urea Nitrogen 12.0 mg/dl (6-23); Calcium 8.6 mg/dl (8.6-10.3); Carbon Dioxide 26.0 mmol/L (21-32); Chloride 114.0 mmol/L (98-107); Creatinine Clr Calc Pharmacy 151.1 ml/min; Glucose 148.0 mg/dl (70-99(Fasting)); Potassium 3.7 mmol/L (3.5-5.1); Sodium 148.0 mmol/L (136-145)
--- NOTE | 2025-06-14 05:43 | Electrocardiogram Report ---
Test Reason : Blood Pressure : */* mmHG Vent. Rate : 63 BPM Atrial Rate : 63 BPM P-R Int : 186 ms QRS Dur : 72 ms QT Int : 432 ms P-R-T Axes : 52 -40 8 degrees QTcB Int : 442 ms Normal sinus rhythm Left axis deviation Low voltage QRS Inferior infarct (cited on or before 03-Mar-2021) Anterior infarct T wave abnormality, consider anterior ischemia Abnormal ECG When compared with ECG of 06-Jan-2023 15:17, WA interval has decreased Inverted T waves have replaced nonspecific T wave abnormality in Inferior leads T wave inversion now evident in Anterior leads Confirmed by Tee Lucia ([id number]) on 06/14/2025 5:43:15 AM Referred By: Confirmed By: Tee Lucia
[2025-06-14 08:40] LABS: Hematocrit (blood only) 37.5 % (37.0-47.0); Hemoglobin 11.7 g/dL (12.0-16.0); Immature Granulocytes # (auto) 0.04 K/uL (0.01-0.20); Immature Granulocytes % (auto) 0.6 %; Mean Corpuscular Hemoglobin 30.5 pg (25.0-34.0); Mean Corpuscular Volume 97.9 fL (80.0-100.0); Platelet Count 136 K/uL (130-400); RDW Standard Deviation 56.0 fL (36.4-46.3); Red Blood Count 3.83 M/uL (4.20-5.40); White Blood Count 6.20 K/ul (4.8-10.8)
[2025-06-14] MEDS: DEXTROSE 5% 1,000 ML IV SCH (08:42)
[2025-06-14 08:52] LABS: Anion Gap 6.0 (3-11); Blood Urea Nitrogen 10.0 mg/dl (6-23); Calcium 8.5 mg/dl (8.6-10.3); Carbon Dioxide 26.0 mmol/L (21-32); Chloride 115.0 mmol/L (98-107); Creatinine Clr Calc Pharmacy 170.3 ml/min; Glucose 100.0 mg/dl (70-99(Fasting)); Magnesium 2.1 mg/dl (1.7-2.4); Potassium 3.4 mmol/L (3.5-5.1); Sodium 147.0 mmol/L (136-145)
[2025-06-14 09:05] LABS: INR 1.3 (0.9-1.1); Prothrombin Time 13.4 Seconds (9.0-12.0)
[2025-06-14] MEDS: THIAMINE HCL 200 MG in SODIUM CHLORIDE 0.9% 50 ML IV SCH (09:27)
[2025-06-14] MEDS: POTASSIUM CHLORIDE / WTR 10 MEQ/100 ML PLCT IV SCH (09:47)
--- NOTE | 2025-06-14 12:29 | Hospitalist Progress Note ---
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 #Metabolic encephalopathy #Acute dehydration #Hypernatremia in setting of poor oral intake in setting of dementia suspect chronic Sodium downtrending on D5W will continue D5W at 80cc/hr #Hypokalemia replace #Acute UTI culture growing pansensitive pseudomonas de escalate IV meropenem to IV cefepime #Supratherapeutic INR INR was greater than 9 yesterday and she received IM vit K INR now 1.3 will start on lovenox 40mg daily and resume warfarin at 1.5mg, will monitor INR #Hx of DVT on buttermaker helper warfarin #Parkinson disease continue sinemet #Moderate vascular dementia chronic, stable #DVT ppx: lovenox until INR >2, continue warfarin PCP: Yousif FULL CODE Dispo: admit to med tele, not yet medically ready to discharge Pt was seen and examined in collaboration with Dr. Canales, please see addendum I spent a total of 45 minutes coordinating, documenting and providing care for this patient excluding time spent in the performance of separately billed services or time spent by another provider/QHP. Admission and Anticipated Discharge Date Admission Date: June 12, 2025 Supervising Physician Co-Signing Physician Notes Pt seen and examined by me, care coordinated w/ Tony Mccloud PA-C, pls refer to her note above for further detail. I saw pt this AM and pt was lying in bed in NAD. She denied any discomfort and she followed simple commands such as moving her arms and her legs for me. Lungs CTAB, heart sounds regular. Abdomen soft, nontender. However pt was not talking. Then I saw the pt again this PM. Pt is smiling and answering questions - when i asked her if she knew she was in the hospital she slowly and clearly answered " I was not aware of it". I encouraged PO intake, she told me she had lunch and multiple things were on tray. Discussed with RN - they feel she has been drinking well. They also report she was similar yesterday - in the morning slow to respond, non talking, and in the afternoon improved. Na level is improved, getting IVF, also added thiamine today. being treated for Pseudomonas UTI, abx switched to cefepime today. Cont. to closely monitor. MD Ally Subjective Pt seen in room 287-2 with nursing at bedside. Nursing reports concerned of yellow film on tongue and pts potassium was mildly low. Otherwise nurse feels she is a little more alert today then yesterday. She did take her pills, but did not eat breakfast. Pt unable to provide ROS. Review of Systems Review of Systems: Unobtainable due to cognitive status Physical Exam Physical Exam: Gen: Obese, elderly, F, NAD, Arouses to touch, but does not answer questions approp, mostly sleeping HEENT: Normocephalic, atraumatic, conjunctivae moist, sclerae anicteric, mucous membranes moist. +thrush on tongue Lung: Clear to Auscultation bilaterally, no wheezes/rales/rhonchi Heart: Regular rate, regular rhythm, no murmurs, rubs, or gallops Abdomen: Soft, NT, ND +BS x 4 Extremities: No edema Skin: Warm, no rash, negative turgor. Results & Data Results & Data Vital Signs (Past 12 Hours) Vital Signs Temp Pulse Pulse Resp BP Pulse Ox O2 Del Method 06/14/25 11:08 36.6 C 82 16 120/75 96 Room Air 06/14/25 09:00 Room Air 06/14/25 07:49 36.9 C 60 12 116/69 94 Room Air 06/14/25 06:20 56 L 06/14/25 03:34 36.8 C 84 20 120/76 96 Room Air Laboratory Results I have independently reviewed and interpreted patient's cbc, bmp, pt/inr, mag Medications Administered Current Inpatient Medications Acetaminophen (Acetaminophen 325 Mg Tab) 650 mg PO Q4H PRN PRN Reason: Pain or Fever Stop: 07/12/25 15:57 Acetaminophen (Acetaminophen 650 Mg Supp) 650 mg [place] Q4H PRN PRN Reason: Pain or Fever Stop: 07/13/25 10:37 Artificial Tears (Artificial Tears) 1 drops OP DAILY PRN PRN Reason: Dryness Stop: 07/12/25 16:03 Atorvastatin Calcium (Atorvastatin 10 Mg Tab) 10 mg PO HS [facility] Stop: 07/12/25 20:59 Last Admin: 06/12/25 20:59 Dose: Not Given Carbidopa/Levodopa (Carbidopa/Levodopa 25/100mg Tab) 1 tab PO TID [facility] Stop: 07/12/25 15:57 Last Admin: 06/14/25 08:40 Dose: 1 tab Enoxaparin Sodium (Enoxaparin Inj 40 Mg/0.4 Ml Syr) 40 mg SQ [facility] Stop: 07/14/25 12:14 Escitalopram Oxalate (Escitalopram Oxalate 20 Mg Tab) [facility] Stop: 07/13/25 08:59 Last Admin: 06/14/25 08:41 Dose: 20 mg Meropenem 500 mg/ Syringe 10 mls @ 2 mls/min IV Q8H [facility]; Protocol Stop: 06/18/25 10:59 Last Admin: 06/14/25 11:52 Dose: 2 mls/min Thiamine HCl 200 mg/ Sodium (Chloride) 52 mls @ 210 mls/hr [facility] Stop: 07/14/25 08:59 Last Infusion: 06/14/25 09:42 Dose: Infused Dextrose (D5w) 1,000 mls @ 80 mls/hr IV .[id number] [facility] Stop: 06/17/25 07:59 Last Admin: 06/14/25 08:42 Dose: 80 mls/hr Methylphenidate HCl (Methylphenidate Hcl 10 Mg Tablet) 20 mg [facility] Stop: 06/27/25 08:59 Last Admin: 06/14/25 08:50 Dose: 20 mg Nystatin (Nystatin Susp 500,000 U/5 Ml Udc) 5 ml PO QID [facility] Stop: 06/21/25 12:59 Ondansetron HCl (Ondansetron Inj 2 Mg/Ml 2 Ml Vial) 4 mg IV Q6H PRN PRN Reason: Nausea Stop: 07/12/25 15:57 Polyethylene Glycol (Polyethylene (Miralax) 17 Gm Pack) 17 gm PO DAILY PRN PRN Reason: Constipation Stop: 07/12/25 15:57 Warfarin Sodium (Warfarin Sod 0.5 Mg Tab) 1.5 mg PO DAILY@1600 [facility] Stop: 07/14/25 15:59
[2025-06-14] MEDS ORDERED: CEFEPIME 2000MG 2,000 MG/20 ML SYR IV SCH (12:30)
[2025-06-14] MEDS: ENOXAPARIN INJ 40 MG/0.4 ML SYR SQ SCH (12:58)
[2025-06-14] MEDS: NYSTATIN SUSP 500,000 U/5 ML UDC PO SCH (12:59)
[2025-06-14] MEDS: WARFARIN SOD 0.5 MG TAB PO SCH (16:54)
[2025-06-14 17:10] LABS: Anion Gap 8.0 (3-11); Blood Urea Nitrogen 11.0 mg/dl (6-23); Calcium 8.6 mg/dl (8.6-10.3); Carbon Dioxide 25.0 mmol/L (21-32); Chloride 111.0 mmol/L (98-107); Creatinine Clr Calc Pharmacy 116.5 ml/min; Glucose 143.0 mg/dl (70-99(Fasting)); Potassium 3.7 mmol/L (3.5-5.1); Sodium 144.0 mmol/L (136-145)
[2025-06-14] MEDS: CEFEPIME 2000MG 2,000 MG/20 ML SYR IV SCH (18:09)
[2025-06-14] MEDS: ONDANSETRON INJ 2 MG/ML 2 ML VIAL IV PRN (18:15)
[2025-06-15 07:32] LABS: Hematocrit (blood only) 38.3 % (37.0-47.0); Hemoglobin 12.0 g/dL (12.0-16.0); Mean Corpuscular Hemoglobin 30.4 pg (25.0-34.0); Mean Corpuscular Volume 97.0 fL (80.0-100.0); Platelet Count 145 K/uL (130-400); RDW Standard Deviation 54.4 fL (36.4-46.3); Red Blood Count 3.95 M/uL (4.20-5.40); White Blood Count 6.03 K/ul (4.8-10.8)
[2025-06-15 07:58] LABS: Alanine Aminotransferase 5.0 U/L (7-52); Albumin Globulin Ratio 1.3 (0.9-2); Albumin Level 3.1 gm/dl (3.4-5.0); Alkaline Phosphatase 67.0 U/L (34-104); Anion Gap 6.0 (3-11); Bilirubin,Total 0.7 mg/dl (0.2-1.0); Blood Urea Nitrogen 11.0 mg/dl (6-23); Calcium 8.5 mg/dl (8.6-10.3); Carbon Dioxide 26.0 mmol/L (21-32); Chloride 111.0 mmol/L (98-107); Creatinine Clr Calc Pharmacy 130.3 ml/min; Globulin 2.3 gm/dl (2.5-4.0); Glucose 102.0 mg/dl (70-99(Fasting)); Magnesium 2.0 mg/dl (1.7-2.4); Potassium 3.7 mmol/L (3.5-5.1); Sodium 143.0 mmol/L (136-145); Total Protein 5.4 gm/dl (6.0-8.3)
[2025-06-15 08:16] LABS: INR 1.1 (0.9-1.1); Prothrombin Time 11.3 Seconds (9.0-12.0)
[2025-06-15] MEDS: ADVANCED PROBIOTIC 625 MG CAPSULE PO SCH (09:56)
--- NOTE | 2025-06-15 12:16 | Hospitalist Progress Note ---
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 #Metabolic encephalopathy #Acute dehydration #Hypernatremia in setting of poor oral intake in setting of dementia suspect chronic improved s/p D5W, fluids stopped will monitor how pt maintains sodium levels off fluids and if able to maintain normal sodium with diet alone continue thiamine IV daily #Hypokalemia replace #Acute UTI culture growing pansensitive pseudomonas Continue IV cefepime, consider de escalating to oral antibiotic in next day or so #Supratherapeutic INR INR was greater than 9 and she received IM vit K INR now 1.1 continue lovenox 40mg daily and resume warfarin received 1.5mg on 06/14, will give 5mg today 06/15 x 1 dose, will need to re eval tomorrow for additional dosing #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 She is bed bound at [facility] and does not need an auth to return. SHe is a bedhold and can return when medically ready. Pt was seen and examined in collaboration with Dr. Canales, please see addendum Discussed case with pts and he agrees with above. I spent a total of 45 minutes coordinating, documenting and providing care for this patient excluding time spent in the performance of separately billed services or time spent by another provider/QHP. Admission and Anticipated Discharge Date Admission Date: June 12, 2025 Supervising Physician Co-Signing Physician Notes Pt seen and examined by me, care coordinated w/ Tony Mccloud PA-C, pls refer to her note above for further detail. Pt seen lying in bed in NAD. She denied any discomfort and she followed simple commands, she was also able to answer few simple questions. Pt's present at the bedside. Lungs CTAB, heart sounds regular. Abdomen soft, nontender. Moves extremities. Left arm edematous - informed RN to pls elevate w/ pillow and also remove hosptal band as it appeared tight on pt's wrist. poss. IV infiltrate? Na level is improved, IVF stopped, also added thiamine yesterday. being treated for Pseudomonas UTI, abx switched to cefepime yesterday. Cont. to closely monitor. MD Ally Subjective Pt seen in room 287-2. ROS unobtainable given cognition. Review of Systems Review of Systems: Unobtainable due to cognitive status Physical Exam Physical Exam: Gen: Obese, elderly, F, NAD, Arouses to touch, does nod her head yes. HEENT: Normocephalic, atraumatic, conjunctivae moist, sclerae anicteric, mucous membranes moist. Lung: Clear to Auscultation bilaterally, no wheezes/rales/rhonchi Heart: Regular rate, regular rhythm, no murmurs, rubs, or gallops Abdomen: Soft, NT, ND +BS x 4 Extremities: No edema Skin: Warm, no rash, negative turgor. : mccartney cath with yellow urine Results & Data Results & Data Vital Signs (Past 12 Hours) Vital Signs Temp Pulse Pulse Resp BP Pulse Ox O2 Del Method 06/15/25 11:23 36.5 C 67 18 138/73 94 Room Air 06/15/25 07:42 60 06/15/25 07:29 36.9 C 59 L 18 96/54 L 93 Room Air 06/15/25 03:51 36.6 C 83 20 123/71 94 Room Air Laboratory Results I have independently reviewed and interpreted patient's cbc, cmp, mag, phos 06/15/25 06/14/25 Range/Units 06:44 16:27 WBC 6.03 (4.8-10.8) K/ul RBC 3.95 L (4.20-5.40) M/uL Hgb 12.0 (12.0-16.0) g/dL Hct 38.3 (37.0-47.0) % MCV 97.0 (80.0-100.0) fL MCH 30.4 (25.0-34.0) pg MCHC 31.3 L (32.0-36.0) g/dL RDW Std Deviation 54.4 H (36.4-46.3) fL RDW Coeff of Joselito 15.3 H (11.5-14.5) % Plt Count 145 (130-400) K/uL MPV 11.5 (9.4-12.4) fL PT 11.3 (9.0-12.0) Seconds INR 1.1 (0.9-1.1) Sodium 143 144 (136-145) mmol/L Potassium 3.7 3.7 (3.5-5.1) mmol/L Chloride 111 H 111 H (98-107) mmol/L Carbon Dioxide 26 25 (21-32) mmol/L Anion Gap 6 8 (3-11) BUN 11 11 (6-23) mg/dl Creatinine 0.34 L 0.38 L (0.6-1.2) mg/dl Est Cr Clr Drug Dosing 130.3 116.5 ml/min eGFR 100.18 97.53 BUN/Creatinine Ratio 32.4 H 28.9 H (10-20) Glucose 102 H 143 H (70-99(Fasting)) mg/dl Calcium 8.5 L 8.6 (8.6-10.3) mg/dl Phosphorus 2.5 (2.5-4.9) mg/dl Magnesium 2.0 (1.7-2.4) mg/dl Total Bilirubin 0.7 (0.2-1.0) mg/dl AST 15 (13-39) U/L ALT 5 L (7-52) U/L Alkaline Phosphatase 67 (34-104) U/L Total Protein 5.4 L (6.0-8.3) gm/dl Albumin 3.1 L (3.4-5.0) gm/dl Globulin 2.3 L (2.5-4.0) gm/dl Albumin/Globulin Ratio 1.3 (0.9-2) Medications Administered Current Inpatient Medications Acetaminophen (Acetaminophen 325 Mg Tab) 650 mg PO Q4H PRN PRN Reason: Pain or Fever Stop: 07/12/25 15:57 Acetaminophen (Acetaminophen 650 Mg Supp) 650 mg [place] Q4H PRN PRN Reason: Pain or Fever Stop: 07/13/25 10:37 Artificial Tears (Artificial Tears) 1 drops OP DAILY PRN PRN Reason: Dryness Stop: 07/12/25 16:03 Atorvastatin Calcium (Atorvastatin 10 Mg Tab) 10 mg PO HS [facility] Stop: 07/12/25 20:59 Last Admin: 06/12/25 20:59 Dose: Not Given Carbidopa/Levodopa (Carbidopa/Levodopa 25/100mg Tab) 1 tab PO TID [facility] Stop: 07/12/25 15:57 Last Admin: 06/15/25 09:56 Dose: 1 tab Enoxaparin Sodium (Enoxaparin Inj 40 Mg/0.4 Ml Syr) 40 mg SQ QAM [facility] Stop: 07/14/25 12:14 Last Admin: 06/15/25 09:59 Dose: 40 mg Escitalopram Oxalate (Escitalopram Oxalate 20 Mg Tab) 20 mg PO QAM [facility] Stop: 07/13/25 08:59 Last Admin: 06/15/25 09:57 Dose: 20 mg Thiamine HCl 200 mg/ Sodium (Chloride) 52 mls @ 210 mls/hr IV QAM [facility] Stop: 07/14/25 08:59 Last Infusion: 06/15/25 10:15 Dose: Infused Dextrose (D5w) 1,000 mls @ 80 mls/hr IV .[id number] [facility] Stop: 06/17/25 07:59 Last Infusion: 06/14/25 18:42 Dose: 0 mls/hr Cefepime HCl (Maxipime 2000mg) 2,000 mg in 20 mls @ 5 mls/min IV Q8H [facility] Stop: 06/18/25 23:59 Last Admin: 06/15/25 10:55 Dose: 5 mls/min Lactobacillus Acidophilus (Advanced Probiotic 625 Mg Capsule) 1,250 mg PO DAILY [facility] Stop: 07/15/25 08:59 Last Admin: 06/15/25 09:56 Dose: 1,250 mg Methylphenidate HCl (Methylphenidate Hcl 10 Mg Tablet) 20 mg PO QAM [facility] Stop: 06/27/25 08:59 Last Admin: 06/15/25 10:52 Dose: 20 mg Nystatin (Nystatin Susp 500,000 U/5 Ml Udc) 5 ml PO QID [facility] Stop: 06/21/25 12:59 Last Admin: 06/15/25 09:58 Dose: 5 ml Ondansetron HCl (Ondansetron Inj 2 Mg/Ml 2 Ml Vial) 4 mg IV Q6H PRN PRN Reason: Nausea Stop: 07/12/25 15:57 Last Admin: 06/14/25 18:15 Dose: 4 mg Polyethylene Glycol (Polyethylene (Miralax) 17 Gm Pack) 17 gm PO DAILY PRN PRN Reason: Constipation Stop: 07/12/25 15:57 Warfarin Sodium (Warfarin Sod 0.5 Mg Tab) 1.5 mg PO DAILY@1600 [facility] Stop: 07/14/25 15:59 Last Admin: 06/14/25 16:54 Dose: 1.5 mg
[2025-06-15] MEDS: POTASSIUM CHLORIDE 20 MEQ/15 ML UDC PO ONE (13:05)
[2025-06-15] MEDS: WARFARIN SOD 5 MG TAB PO SCH (16:57)
[2025-06-16 06:24] LABS: Hematocrit (blood only) 36.1 % (37.0-47.0); Hemoglobin 11.8 g/dL (12.0-16.0); Mean Corpuscular Hemoglobin 31.5 pg (25.0-34.0); Mean Corpuscular Volume 96.3 fL (80.0-100.0); Platelet Count 137 K/uL (130-400); RDW Standard Deviation 54.0 fL (36.4-46.3); Red Blood Count 3.75 M/uL (4.20-5.40); White Blood Count 6.28 K/ul (4.8-10.8)
[2025-06-16 06:39] LABS: Alanine Aminotransferase 4.0 U/L (7-52); Albumin Globulin Ratio 1.3 (0.9-2); Albumin Level 3.2 gm/dl (3.4-5.0); Alkaline Phosphatase 66.0 U/L (34-104); Anion Gap 6.0 (3-11); Bilirubin,Total 0.5 mg/dl (0.2-1.0); Blood Urea Nitrogen 10.0 mg/dl (6-23); Calcium 8.7 mg/dl (8.6-10.3); Carbon Dioxide 24.0 mmol/L (21-32); Chloride 111.0 mmol/L (98-107); Creatinine Clr Calc Pharmacy 130.3 ml/min; Globulin 2.4 gm/dl (2.5-4.0); Glucose 119.0 mg/dl (70-99(Fasting)); Magnesium 1.9 mg/dl (1.7-2.4); Potassium 4.2 mmol/L (3.5-5.1); Sodium 141.0 mmol/L (136-145); Total Protein 5.6 gm/dl (6.0-8.3)
[2025-06-16 08:04] LABS: INR 1.0 (0.9-1.1); Prothrombin Time 10.8 Seconds (9.0-12.0)
[2025-06-16] MEDS: PNEUMOCOCCAL VACCINE (PCV20) 20-VAL CONJ-DIP CRM/PF 0.5 ML SYR IM ONE (13:40)
[2025-06-16] MEDS ORDERED: MICONAZOLE NITRATE POWDER 85 GM EXT PRN (15:54)
--- NOTE | 2025-06-16 16:02 | Hospitalist Progress Note ---
Date of Service June 16, 2025 Assessment & Plan (1) Acute metabolic encephalopathy: (2) Pseudomonas urinary tract infection: (3) Dehydration with hypernatremia: (4) Parkinson's disease dementia: (5) Warfarin anticoagulation: Plan Patient is an 85y/o F with PMHx significant for long-term anticoagulation in setting of chronic DVT/history of PE, moderate vascular dementia with mood disturbance, Parkinson's disease, history of recurrent falls and macular degeneration who presented to the ED on 06/12/25 due to minimal p.o. intake x few days and decreased mentation. Acute metabolic encephalopathy In the setting of UTI, hyperNa, dementia and likely progression of Parkinson's disease. Mentation seems to be encroaching back towards baseline. Arouses to tactile stimulation; opens eyes, (+) visual tracking, smiles, nods occasionally. Still not conversant much at all. -Pt's was at bedside this afternoon. Fed her about two-thirds of her lunch. -Feels she is "acting more like herself." Pt is bedbound at baseline, minimally conversant per . Plan for pt to return back to [facility] (LTC resident) when medically stable. Pt's not interested in palliative or hospice services at this time. Acute dehydration Acute hypernatremia in setting of poor p.o. intake and dementia Contributed to above. Na back to baseline s/p D5w; will continue to monitor Na level off IVF. Will need to see if pt is able to maintain normal Na level with diet alone. Unfortunately this will likely be a recurrent issue as her oral intake will be difficult to maintain in light of her advancing Parkinson's disease and vascular dementia. Continue daily IV thiamine. Acute UTI Urine culture grew pansensitive Pseudomonas aeruginosa >> continue IV cefepime for now. Hdz cath not present [employer] [facility], was inserted on 06/12 in the ED. Maintain cath for now. Supratherapeutic INR History of chronic DVT and PE INR was initially >9 and she received IM vit K. INR 1.1 yesterday, was given 5mg Coumadin >> repeat INR 1.0 today. Will give an additional 5mg Coumadin x 1 dose today and continue SQ Lovenox 40mg daily, follow repeat INR in AM. Parkinson's disease Continue Sinemet. DVT Prophylaxis: Coumadin, SQ Lovenox (until INR>2) Code Status: FULL CODE PCP: Mary Lou Reyes at [place] Disposition: Likely to remain hospitalized for an additional 1-2 days to see how her Na trends with diet alone. If Na levels rise again, may need to again discuss palliative measures vs hospice care. Pt is bedbound, LTC resident at [facility] and does not need an auth to return >> bed hold, can return when medically stable. Possibly on Thursday, 06/18. Patient seen in collaboration with Dr. Canales. Please see addendum. I spent a total of 48 minutes coordinating, documenting, and providing care for this patient excluding time spent in the performance of separately billed services or time spent by another provider/QHP. This included personally reviewing all current laboratories and imaging studies, medical reconciliation, outpatient chart review and discussion with specialists. This chart was completed in part utilizing Speech Voice Recognition Software. Grammatical errors, random word insertions, pronoun errors, and incomplete sentences are an occasional consequence of this system due to software limitations, ambient noise, and hardware issues. Any formal questions or concerns about the content, text, or information contained within the body of this dictation should be directly addressed to the provider for clarification. Admission and Anticipated Discharge Date Admission Date: June 12, 2025 Supervising Physician Co-Signing Physician Notes Pt seen and examined by me, care coordinated w/ Tony Child PA-C, pls refer to her note above for further detail. Pt seen sitting up in bed in NAD, eating dinner. Pt's and RN at the bedside. When I asked her how she was doing today, she told me "Great!" and also said "trying to eat my dinner". She denied any discomfort .Lungs CTAB, heart sounds regular. Abdomen soft, nontender. Moves extremities. Left arm much less edematous today. Na level is improved, currently at 141 and IVF were already stopped, cont. th iamine yesterday. being treated for Pseudomonas UTI, abx switched to cefepime. Cont. to closely monitor. MD Ally Subjective Patient seen and examined in room N287-2. Difficult to arouse but does eventually open eyes, smiles. Not conversive however did eat her crushed medications in applesauce with a feed assist from the RN. Review of Systems Review of Systems: Unobtainable 2/2 cognitive status. Physical Exam Physical Exam: General/Neuro: Elderly F, NAD. Arouses to deep touch and loud commands, opens eyes. Nonconversant. HEENT: Somewhat dry mucous membranes, normocephalic. Respiratory: Normal respiratory effort, decreased breath sounds bilaterally 2/2 reduced inspiratory effort. Cardiovascular: RRR, normal peripheral pulses, no BLE edema. Abdomen/GI: Active bowel sounds, soft, nontender to palpation in all quadrants. : + Hdz catheter in place with dark yellow urine output. Extremities/MSK: No cyanosis or clubbing, not following commands. Results & Data Results & Data Vital Signs (Past 12 Hours) Vital Signs Temp Pulse Pulse Resp BP Pulse Ox O2 Del Method 06/16/25 15:20 36.7 C 88 20 124/79 95 Room Air 06/16/25 13:37 70 06/16/25 11:19 36.8 C 70 16 125/76 96 Room Air 06/16/25 08:38 36.6 C 65 20 131/78 95 Room Air 06/16/25 08:20 Room Air 06/16/25 06:45 61 Laboratory Results Short CBC 06/16/25 Range/Units 05:58 WBC 6.28 (4.8-10.8) K/ul Hgb 11.8 L (12.0-16.0) g/dL Hct 36.1 L (37.0-47.0) % Plt Count 137 (130-400) K/uL BMP 06/16/25 05:58 Sodium 141 Potassium 4.2 Chloride 111 H Carbon Dioxide 24 BUN 10 Creatinine 0.34 L Glucose 119 H Calcium 8.7 Liver Function 06/16/25 Range/Units 05:58 Total Bilirubin 0.5 (0.2-1.0) mg/dl AST 11 L (13-39) U/L ALT 4 L (7-52) U/L Alkaline Phosphatase 66 (34-104) U/L Albumin 3.2 L (3.4-5.0) gm/dl Medications Administered Current Inpatient Medications Acetaminophen (Acetaminophen 325 Mg Tab) 650 mg PO Q4H PRN PRN Reason: Pain or Fever Stop: 07/12/25 15:57 Acetaminophen (Acetaminophen 650 Mg Supp) 650 mg NE Q4H PRN PRN Reason: Pain or Fever Stop: 07/13/25 10:37 Artificial Tears (Artificial Tears) 1 drops OP DAILY PRN PRN Reason: Dryness Stop: 07/12/25 16:03 Atorvastatin Calcium (Atorvastatin 10 Mg Tab) 10 mg PO HS [facility] Stop: 07/12/25 20:59 Last Admin: 06/12/25 20:59 Dose: Not Given Carbidopa/Levodopa (Carbidopa/Levodopa 25/100mg Tab) 1 tab PO TID [facility] Stop: 07/12/25 15:57 Last Admin: 06/16/25 13:40 Dose: 1 tab Enoxaparin Sodium (Enoxaparin Inj 40 Mg/0.4 Ml Syr) 40 mg SQ QAM [facility] Stop: 07/14/25 12:14 Last Admin: 06/16/25 08:20 Dose: 40 mg Escitalopram Oxalate (Escitalopram Oxalate 20 Mg Tab) 20 mg PO QAM [facility] Stop: 07/13/25 08:59 Last Admin: 06/16/25 08:20 Dose: 20 mg Thiamine HCl 200 mg/ Sodium (Chloride) 52 mls @ 210 mls/hr IV QAM [facility] Stop: 07/14/25 08:59 Last Infusion: 06/16/25 09:55 Dose: Infused Cefepime HCl (Maxipime 2000mg) 2,000 mg in 20 mls @ 5 mls/min IV Q8H [facility] Stop: 06/18/25 23:59 Last Admin: 06/16/25 11:05 Dose: 5 mls/min Lactobacillus Acidophilus (Advanced Probiotic 625 Mg Capsule) 1,250 mg PO DAILY [facility] Stop: 07/15/25 08:59 Last Admin: 06/16/25 08:20 Dose: 1,250 mg Methylphenidate HCl (Methylphenidate Hcl 10 Mg Tablet) 20 mg PO QAM [facility] Stop: 06/27/25 08:59 Last Admin: 06/16/25 09:40 Dose: 20 mg Miconazole Nitrate (Miconazole Nitrate Powder 85 Gm) 1 appln EXT PRN PRN PRN Reason: Affected Skin Folds Stop: 07/16/25 15:53 Nystatin (Nystatin Susp 500,000 U/5 Ml Udc) 5 ml PO QID [facility] Stop: 06/21/25 12:59 Last Admin: 06/16/25 17:45 Dose: 5 ml Ondansetron HCl (Ondansetron Inj 2 Mg/Ml 2 Ml Vial) 4 mg IV Q6H PRN PRN Reason: Nausea Stop: 07/12/25 15:57 Last Admin: 06/14/25 18:15 Dose: 4 mg Polyethylene Glycol (Polyethylene (Miralax) 17 Gm Pack) 17 gm PO DAILY PRN PRN Reason: Constipation Stop: 07/12/25 15:57
[2025-06-16] MEDS: WARFARIN SOD 5 MG TAB PO SCH (16:15)
[2025-06-17 06:40] LABS: Hematocrit (blood only) 35.6 % (37.0-47.0); Hemoglobin 11.2 g/dL (12.0-16.0); Mean Corpuscular Hemoglobin 30.5 pg (25.0-34.0); Mean Corpuscular Volume 97.0 fL (80.0-100.0); Platelet Count 122 K/uL (130-400); RDW Standard Deviation 54.4 fL (36.4-46.3); Red Blood Count 3.67 M/uL (4.20-5.40); White Blood Count 7.07 K/ul (4.8-10.8)
[2025-06-17 07:01] LABS: Alanine Aminotransferase 3.0 U/L (7-52); Albumin Globulin Ratio 1.4 (0.9-2); Albumin Level 3.0 gm/dl (3.4-5.0); Alkaline Phosphatase 62.0 U/L (34-104); Anion Gap 6.0 (3-11); Bilirubin,Total 0.5 mg/dl (0.2-1.0); Blood Urea Nitrogen 10.0 mg/dl (6-23); Calcium 8.3 mg/dl (8.6-10.3); Carbon Dioxide 26.0 mmol/L (21-32); Chloride 110.0 mmol/L (98-107); Creatinine Clr Calc Pharmacy 122.9 ml/min; Globulin 2.2 gm/dl (2.5-4.0); Glucose 114.0 mg/dl (70-99(Fasting)); Magnesium 1.9 mg/dl (1.7-2.4); Potassium 4.1 mmol/L (3.5-5.1); Sodium 142.0 mmol/L (136-145); Total Protein 5.2 gm/dl (6.0-8.3)
--- NOTE | 2025-06-17 07:49 | Hospitalist Progress Note ---
Date of Service June 17, 2025 Assessment & Plan (1) Acute metabolic encephalopathy: (2) Pseudomonas urinary tract infection: (3) Dehydration with hypernatremia: (4) Parkinson's disease dementia: (5) Warfarin anticoagulation: Plan Patient is an 85y/o F with PMHx significant for long-term anticoagulation in setting of chronic DVT/history of PE, moderate vascular dementia with mood disturbance, Parkinson's disease, history of recurrent falls and macular degeneration who presented to the ED on 06/12/25 due to minimal p.o. intake x few days and decreased mentation. Acute metabolic encephalopathy In the setting of UTI, hyperNa, dementia and likely progression of Parkinson's disease. Mentation seems to be encroaching back towards baseline. Arouses to tactile stimulation; opens eyes, (+) visual tracking, smiles, nods occasionally. Still not conversant much at all. Pt is bedbound at baseline, sleeps most of the day. Plan for pt to return back to [facility] (LTC resident) >> tentative plan for DC tomorrow if Na remains stable. Pt's not interested in palliative or hospice services at this time. Acute dehydration Acute hypernatremia in setting of poor p.o. intake and dementia Contributed to above. Na improving, s/p D5w. Continue to monitor, will give some additional D5w today. Unfortunately this will likely be a recurrent issue as her oral intake will be difficult to maintain in light of her advancing Parkinson's disease and vascular dementia. Continue daily IV thiamine >> transition to po on DC. Acute UTI Urine culture grew pansensitive Pseudomonas aeruginosa >> continue IV cefepime for now (day 5 of ABX). 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 Supratherapeutic INR History of chronic DVT and PE INR was initially >9 and she received IM vit K. Repeat INR 1.0 yesterday, was given 5mg Coumadin. Will give 3mg Coumadin x 1 dose today and continue SQ Lovenox 40mg daily, follow repeat INR in AM. Parkinson's disease Continue Sinemet. DVT Prophylaxis: Coumadin, SQ Lovenox (until INR>2) Code Status: FULL CODE [facility] Disposition: Tentative plan for DC back to [facility] tomorrow. Pt is bedbound, LTC resident at [facility] and does not need an auth to return >> bed hold. Patient seen in collaboration with Dr. Canales. Please see addendum. I spent a total of 45 minutes coordinating, documenting, and providing care for this patient excluding time spent in the performance of separately billed services or time spent by another provider/QHP. This included personally reviewing all current laboratories and imaging studies, medical reconciliation, outpatient chart review and discussion with specialists. Admission and Anticipated Discharge Date Admission Date: June 12, 2025 Supervising Physician Co-Signing Physician Notes Pt seen and examined by me, care coordinated w/ BIsela Child PA-C, pls refer to her note above for further detail. Pt seen sitting up in bed in [facility], had very little breakfast this AM. When I asked her how she was doing today, she told me "Fine!" loud and clear however did not answer any of y other questions. She denied any discomfort. Lungs CTAB, heart sounds regular. Abdomen soft, nontender. Moves extremities. Left arm much less edematous today. Na level currently at 142 without any IVF. being treated for Pseudomonas UTI, abx switched to cefepime. Plan to remove Hdz today. Cont. to closely monitor. Plan to DC back to [facility] tmrw MD Ally Subjective Patient seen and examined in room N287-2. Easier to arouse this morning. Opens eyes, smiles and nods head with direct questioning. Certainly more alert. Still not conversive. Review of Systems Review of Systems: Unobtainable 2/2 cognitive status. Physical Exam Physical Exam: General/Neuro: Elderly F, NAD. Sleeping when I entered the room but arousable verbal stimuli. Opens eyes, smiles. Nods head yes/no to direct questions. Remains nonconversant. HEENT: Somewhat dry mucous membranes, normocephalic. Respiratory: Normal respiratory effort, decreased breath sounds bilaterally 2/2 reduced inspiratory effort (not following commands). Cardiovascular: RRR, normal peripheral pulses, no BLE edema. Abdomen/GI: Active bowel sounds, soft, nontender to palpation in all quadrants. : + Hdz catheter in place with dark yellow urine output. Extremities/MSK: No cyanosis or clubbing, not following commands. Results & Data Results & Data Vital Signs (Past 12 Hours) Vital Signs Temp Pulse Pulse Resp BP Pulse Ox O2 Del Method 06/17/25 06:45 53 L 06/17/25 03:45 36.9 C 64 18 115/83 98 Room Air 06/16/25 22:12 62 06/16/25 22:05 36.6 C 64 18 126/76 95 Room Air 06/16/25 21:14 Room Air Laboratory Results Short CBC 06/17/25 Range/Units 05:39 WBC 7.07 (4.8-10.8) K/ul Hgb 11.2 L (12.0-16.0) g/dL Hct 35.6 L (37.0-47.0) % Plt Count 122 L (130-400) K/uL BMP 06/17/25 05:39 Sodium 142 Potassium 4.1 Chloride 110 H Carbon Dioxide 26 BUN 10 Creatinine 0.36 L Glucose 114 H Calcium 8.3 L Liver Function 06/17/25 Range/Units 05:39 Total Bilirubin 0.5 (0.2-1.0) mg/dl AST 8 L (13-39) U/L ALT 3 L (7-52) U/L Alkaline Phosphatase 62 (34-104) U/L Albumin 3.0 L (3.4-5.0) gm/dl Medications Administered Current Inpatient Medications Acetaminophen (Acetaminophen 325 Mg Tab) 650 mg PO Q4H PRN PRN Reason: Pain or Fever Stop: 07/12/25 15:57 Acetaminophen (Acetaminophen 650 Mg Supp) 650 mg GA Q4H PRN PRN Reason: Pain or Fever Stop: 07/13/25 10:37 Artificial Tears (Artificial Tears) 1 drops OP DAILY PRN PRN Reason: Dryness Stop: 07/12/25 16:03 Atorvastatin Calcium (Atorvastatin 10 Mg Tab) 10 mg PO HS ARASELI Stop: 07/12/25 20:59 Last Admin: 06/12/25 20:59 Dose: Not Given Carbidopa/Levodopa (Carbidopa/Levodopa 25/100mg Tab) 1 tab PO TID ARASELI Stop: 07/12/25 15:57 Last Admin: 06/17/25 13:05 Dose: 1 tab Enoxaparin Sodium (Enoxaparin Inj 40 Mg/0.4 Ml Syr) 40 mg SQ QAM ARASELI Stop: 07/14/25 12:14 Last Admin: 06/17/25 08:25 Dose: 40 mg Escitalopram Oxalate (Escitalopram Oxalate 20 Mg Tab) 20 mg PO QAM [facility] Stop: 07/13/25 08:59 Last Admin: 06/17/25 08:25 Dose: 20 mg Thiamine HCl 200 mg/ Sodium (Chloride) 52 mls @ 210 mls/hr IV QAM [facility] Stop: 07/14/25 08:59 Last Infusion: 06/17/25 08:40 Dose: Infused Cefepime HCl (Maxipime 2000mg) 2,000 mg in 20 mls @ 5 mls/min IV Q8H [facility] Stop: 06/18/25 23:59 Last Admin: 06/17/25 11:00 Dose: 5 mls/min Dextrose (D5w) 1,000 mls @ 60 mls/hr IV .[id number] [facility] Stop: 06/17/25 21:34 Last Admin: 06/17/25 14:05 Dose: 60 mls/hr Lactobacillus Acidophilus (Advanced Probiotic 625 Mg Capsule) 1,250 mg PO DAILY [facility] Stop: 07/15/25 08:59 Last Admin: 06/17/25 08:25 Dose: 1,250 mg Methylphenidate HCl (Methylphenidate Hcl 10 Mg Tablet) [facility] [place] Stop: 06/27/25 08:59 Last Admin: 06/17/25 08:25 Dose: 20 mg Miconazole Nitrate (Miconazole Nitrate Powder 85 Gm) 1 appln EXT PRN PRN PRN Reason: Affected Skin Folds Stop: 07/16/25 15:53 Nystatin (Nystatin Susp 500,000 U/5 Ml Udc) 5 ml PO QID [facility] Stop: 06/21/25 12:59 Last Admin: 06/17/25 13:05 Dose: 5 ml Ondansetron HCl (Ondansetron Inj 2 Mg/Ml 2 Ml Vial) 4 mg IV Q6H PRN PRN Reason: Nausea Stop: 07/12/25 15:57 Last Admin: 06/14/25 18:15 Dose: 4 mg Polyethylene Glycol (Polyethylene (Miralax) 17 Gm Pack) 17 gm PO DAILY PRN PRN Reason: Constipation Stop: 07/12/25 15:57 Sennosides (Senna 8.6 Mg Tab) 8.6 [facility] [place] Stop: 07/18/25 08:59 Warfarin Sodium (Warfarin Sod 3 Mg Tab) 3 mg PO DAILY@1600 [facility] Stop: 07/17/25 15:59
[2025-06-17 09:06] LABS: INR 1.0 (0.9-1.1); Prothrombin Time 11.0 Seconds (9.0-12.0)
[2025-06-17] MEDS: SENNA 8.6 MG TAB PO ONE (13:05)
[2025-06-17] MEDS: DEXTROSE 5% 1,000 ML IV SCH (14:05)
[2025-06-17] MEDS: WARFARIN SOD 3 MG TAB PO SCH (16:55)
[2025-06-18] MEDS ORDERED: ALENDRONATE SODIUM 70 MG TAB PO SCH (06:30)
[2025-06-18 07:58] LABS: Hematocrit (blood only) 35.5 % (37.0-47.0); Hemoglobin 11.7 g/dL (12.0-16.0); Mean Corpuscular Hemoglobin 31.6 pg (25.0-34.0); Mean Corpuscular Volume 95.9 fL (80.0-100.0); Platelet Count 133 K/uL (130-400); RDW Standard Deviation 54.1 fL (36.4-46.3); Red Blood Count 3.70 M/uL (4.20-5.40); White Blood Count 8.85 K/ul (4.8-10.8)
[2025-06-18 08:17] LABS: Anion Gap 4.0 (3-11); Blood Urea Nitrogen 10.0 mg/dl (6-23); Calcium 8.5 mg/dl (8.6-10.3); Carbon Dioxide 26.0 mmol/L (21-32); Chloride 109.0 mmol/L (98-107); Creatinine Clr Calc Pharmacy 130.9 ml/min; Glucose 117.0 mg/dl (70-99(Fasting)); Magnesium 1.9 mg/dl (1.7-2.4); Potassium 3.8 mmol/L (3.5-5.1); Sodium 139.0 mmol/L (136-145)
[2025-06-18 08:25] LABS: INR 1.0 (0.9-1.1); Prothrombin Time 10.7 Seconds (9.0-12.0)
[2025-06-18] MEDS: SENNA 8.6 MG TAB PO SCH (08:30)
--- NOTE | 2025-06-18 11:01 | Discharge Summary ---
Discharge Summary Date of Service June 18, 2025 Principal Dx & Hospital Course #1 = Principal Diagnosis (1) Acute metabolic encephalopathy: (2) Pseudomonas urinary tract infection: (3) Dehydration with hypernatremia: (4) Parkinson's disease dementia: (5) Warfarin anticoagulation: Plan Patient is an 85y/o F with PMHx significant for long-term anticoagulation in setting of chronic DVT/history of PE, moderate vascular dementia with mood disturbance, Parkinson's disease, history of recurrent falls and macular degeneration who presented to the ED on 06/12/25 due to minimal p.o. intake x few days and decreased mentation. Acute metabolic encephalopathy, resolved In the setting of UTI, hyperNa, dementia and likely progression of Parkinson's disease. Mentation appears to be back to baseline per d/w pt's . -Arouses to verbal/tactile stimulation; opens eyes, (+) visual tracking, smiles, nods occasionally. -Not conversant much at all which is unchanged from baseline. Pt is bedbound at baseline, sleeps most of the day. Pt's not interested in palliative or hospice services at this time. Pt is LTC resident at [facility] >> will be returning back to this facility today. Acute dehydration Acute hypernatremia in setting of poor p.o. intake and dementia, resolved Contributed to above. Na improved back WNL s/p D5w. Has been able to maintain Na level with p.o. intake. Unfortunately this will likely be a recurrent issue as her oral intake will be difficult to maintain in light of her advancing Parkinson's disease and vascular dementia. Continue thiamine supplementation. Acute UTI Urine culture grew pansensitive Pseudomonas aeruginosa. Transition to po ciprofloxacin on DC to complete full 7-day ABX course. Has Hdz cath in place during hospitalization which was then removed on 06/17, minimal PVR. According to pt's , she requires Hdz cath placement at [facility] "from time to time" 2/2 retention. Supratherapeutic INR History of chronic DVT and PE INR was initially >9 and she received IM vit K. INR remains 1.0 on day of DC. 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 Could even consider addition of SQ heparin at [facility] if INR remains subtherapeutic. Parkinson's disease Continue Sinemet. PCP: Mary Lou Reyes at [facility] Disposition: Pt is being DC'd back to [facility] where she is a LTC resident. Patient seen in collaboration with Dr. Canales. Please see addendum. I spent a total of 60 minutes coordinating, documenting, and providing care for this patient excluding time spent in the performance of separately billed services or time spent by another provider/QHP. This included personally reviewing all current laboratories and imaging studies, medical reconciliation, outpatient chart review and discussion with specialists. Notes For Next Care Provider Recommend weekly BMP for at least 1 month following discharge to monitor her Na level. Also will need repeat PT/INR in the next 1-2 days, INR subtherapeutic = 1 as of 06/18/25. May need to consider SQ heparin bridging to raise INR to therapeutic level. 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 Her and son are at bedside who helps elicit hx. states pt stopped eating 2-3 days ago, will not open her mouth and will not talk. She has hx of UTI in the past for the last 50 years. She was started on antibiotic at [facility] and received IVF yesterday due to patient not taking in anything orally. Outpt labs reveal Na of 156; therefore she was sent to ED. At baseline pt is able to talk, follow commands and is bed bound. denies any recent UTI sx or pt c/o of any cp or sob. Staff at [facility] have been able to get meds into her, but it has faith struggle. Upon questioning denies hx of dementia that he is aware of. States she had a large brain bleed several years ago after a fall that has since resolved. Admission Exam Per Admitting Provider Constitutional: WD/WN, elderly, F, parkinsonian features, vitals as above, NAD, sitting up in bed, awake, but does not verbally respond Head: Normocephalic, Atraumatic Eyes: conjunctivae normal, anicteric sclerae ENMT: external ear and nose normal, oropharynx with dry membranes Neck: trachea midline, no thyromegaly normal visual inspection Respiratory: CTAB, no W/R/R, normal inspection, no accessory muscle use Cardiovascular: RRR, no murmur, no edema Chest: normal inspection of chest Abdomen: S, NT, ND, +BS x 4 Musculoskeletal: no cyanosis or clubbing Skin: no rashes, warm and dry normal turgor Neurologic: no face palsy, no dysarthria CN's II-XI intact bilaterally and moves all extremities Psychiatric: unable to assess Discharge Exam General/Neuro: Elderly F, NAD. Sleeping when I entered the room but arousable to verbal stimuli. Opens eyes, smiles. Nods head yes/no to direct questions. Remains nonconversant. HEENT: Somewhat dry mucous membranes, normocephalic. Respiratory: Normal respiratory effort, decreased breath sounds bilaterally 2/2 reduced inspiratory effort (not following commands). Cardiovascular: RRR, normal peripheral pulses, no BLE edema. Abdomen/GI: Active bowel sounds, soft, nontender to palpation in all quadrants. : + Hdz catheter in place with dark yellow urine output. Extremities/MSK: No cyanosis or clubbing, not following commands. Updated Medication List Medication Instructions Recorded Confirmed Type atorvastatin 10 mg tablet (Lipitor) 10 mg PO HS 03/11/19 06/12/25 History acetaminophen 325 mg tablet 975 mg PO TID 3 GRAMS/24 HOURS 03/30/22 06/12/25 History (Tylenol) cholecalciferol (vitamin D3) 25 25 mcg PO QAM 03/30/22 06/12/25 History mcg (1,000 unit) capsule (Vitamin D3) diclofenac sodium 1 % topical gel 4 g topical Q6 PRN LEFT HIP PAIN 03/30/22 06/12/25 History alendronate 70 mg tablet (Fosamax) 70 mg PO WK 01/06/23 06/12/25 History carboxymethylcellulose sodium 0.5 1 drp ophthalmic (eye) .EVERY 24 01/06/23 06/12/25 History % eye drops (Refresh Tears) HOURS PRN Dry Eyes diclofenac sodium 1 % topical gel 4 g topical Q6 PRN spine pain 01/06/23 06/12/25 History vit C 250 mg-vit E 90 mg-zinc 40 1 tab PO AMHS 01/06/23 06/12/25 History mg-copper 1 [id number] capsule (PreserVision AREDS-2) Lactobacillus acidoph-L.bulgaricus 1 tab PO DAILY 06/12/25 06/12/25 History 1 million cell tablet (Floranex) acetaminophen 325 mg tablet 650 mg PO Q4H PRN FEVER >100 06/12/25 06/12/25 History acetaminophen 325 mg tablet 650 mg PO Q4H PRN Pain (Scale 06/12/25 06/12/25 History Score 1-3) acetaminophen 650 mg rectal 650 mg CO Q4H PRN Fever 06/12/25 06/12/25 History suppository carbidopa 25 mg-levodopa 100 mg 1 tab PO TID 06/12/25 06/12/25 History tablet cyanocobalamin (vitamin B-12) 1,000 mcg PO DAILY 06/12/25 06/12/25 History 1,000 mcg tablet escitalopram oxalate 20 mg tablet 20 mg PO QAM 06/12/25 06/12/25 History gabapentin 400 mg capsule 400 mg PO TID 06/12/25 06/12/25 History methylphenidate HCl 20 mg tablet 20 mg PO QAM 06/12/25 06/12/25 History warfarin 3 mg tablet 1.5 mg PO DIRECTED 06/12/25 06/12/25 History warfarin 3 mg tablet 3 mg PO SUMOTUTHFRSA 06/12/25 06/12/25 History ciprofloxacin HCl 500 mg tablet 500 mg PO BID #4 tabs 06/18/25 Rx Hospital Stay Data Consultations 06/12/25 12:15 ED Decision to Admit Stat Diagnostic Imagining Performed 06/12/25 10:00 CT head/brain wo con Stat FINDINGS: No acute intracranial hemorrhage, midline shift, intracranial mass, acute territorial ischemia or abnormal extra-axial collection. Involutional changes with chronic microvascular ischemic disease. Unchanged ventriculomegaly. The calvarium is intact. Mastoid air cells are clear. Severe near complete opacification of the left sphenoid sinus, unchanged. Prior partial ethmoidectomy. Elongation of the bilateral globes is a chronic finding. Prior bilateral lens repair. IMPRESSION: 1. No acute intracranial abnormality. 2. Unchanged ventricular dilation which is likely on an ex vacuo basis. Normal pressure hydrocephalus could appear similarly. 06/12/25 10:59 CT Abd and Pelvis [CT abd pelvis IV con only] Stat FINDINGS: No pneumatosis, free air or portal venous gas is present. Subpleural lower lung opacities represent atelectasis. The heart is moderately enlarged. There are no hepatic lesions. Hepatic steatosis is noted. There is no biliary or pancreatic ductal dilatation. Adrenal glands and pancreas are unremarkable. Several renal cysts measure up to 9 cm. Multiple bilateral renal calculi measure up to 8 mm. There are no ureteral calculi. There is no hydronephrosis. Para pelvic cysts are again noted. Hdz balloon within the bladder is noted. The bladder is collapsed. Bladder wall thickening with adjacent stranding. There is extensive colonic diverticulosis. No evidence for acute diverticulitis. There is a moderate to large amount of stool within the rectum. There is no lymphadenopathy. Gallstones within the gallbladder are noted. There is no evidence for acute cholecystitis. Postoperative findings within lumbar spine are present. There are several old lower thoracic spine compression fractures. No acute fractures are identified. IMPRESSION: 1. Bladder wall thickening with adjacent stranding which could be correlated with urinalysis. Hdz balloon in place. 2. Bilateral nephrolithiasis. No ureteral calculi. No hydronephrosis. 3. Cholelithiasis. 4. Moderate to large amount of stool within the rectum. Discharge Instructions Given to Patient (Per Discharging Provider) Will need PCP follow-up appointment within the next 1-2 weeks. It has been a pleasure taking care of Mrs. Arita.If there are any questions regarding her recent hospitalization, please contact [facility] and request a [facility] Hospitalist @ [phone]. Total Time Total Time Spent Total Time Spent (In Minutes): 60 Supervising Physician Co-Signing Physician Notes Pt seen and examined by , care coordinated w/ Tony Child PA-C, pls refer to her note above for further detail. Pt seen sitting up in bed in NAD, offered her some apple juice and pt drank it this AM, does not speak much in the mornin gs, and usually talks and eats more in the afternoon. She denies any discomfort. Lungs CTAB, heart sounds regular. Abdomen soft, nontender. Moves extremities. Na level currently at 139. She is being treated for Pseudomonas UTI. Needs encouragement with PO intake, and recommend to check sodium level weekly x3. Also needs check INR and cont. warfarin.Plan to DC back to [facility] today. MD Ally
[2025-06-18 11:57] VITALS: BP 118/72; PULSE 67; RESP 20; TEMP 98.2; O2SAT 92
== END 2025-06-18 13:03 | DRG 689 ==
LOC: ED 09:45 → SUATTDRO 12:22 → 2N 12:22